=== PATIENT | male | born 1960 | race Caucasian/White ===

== ENCOUNTER 2017-01-22 13:45 | Emergency (ER) | payer OTHER, MEDICAID ==
[2017-01-22 14:01] VITALS: BP 138/71; BMI 31.1
--- NOTE | 2017-01-22 14:25 | DR.GENAD ---
HPI - PCP Primary Care Physician: kathleen - Complaint/Symptoms Chief Complaint:: patient stated his left hip started hurting 3 days ago and he cant take the pain any more. - Nurses notes reviewed Nurses Notes Review: Yes - Source History Provided: Patient - Mode of Arrival Mode of Arrival: Ambulatory - Timing Onset of Chief Complaint: 01/20/17 Came on: Gradually - Duration Duration: Intermittent How lon Duration: Days - Location Location: left hip - Severity Severity: Moderate - Modifying Factors Worsens:: movement - Associated Signs and Symptoms Associated Signs and Symptoms: radiates to leg - Other History Other History: hx back problems PMH - PMH Past Medical History: Yes Past Medical History: CHF, COPD, Diabetes, Dyslipidemia, Hypertension Past Surgical History: Yes Surgical History: Angioplasty/Stents, Ortho Surgery - Family History History of Family Medical Conditions: Yes Family Medical History: Diabetes Mellitus - Social History Does patient currently use any type of tobacco product: Yes Have you used tobacco products in the last 12 months: Yes Type of Tobacco Use: Cigarettes How many years tobacco product used: 40 Does any household member use tobacco: No Alcohol Use: None Do you use any recreational Drugs:: No Lives With: Family Lives Where: Home - infectious screening In the last 2 months have you had wt loss of >10#?: NO Have you had fever, night sweats or hemotysis?: No Have you traveled outside the country in the last 6 months?: No Isolation: Standard ROS - Review of Systems Constitutional: No Symptoms Reported Eyes: No Symptoms Reported ENTM: No Symptoms Reported Respiratoy: No Symptoms Reported Cardiovascular: No Symptoms Reported Gastrointestinal/Abdominal: No Symptoms Reported Genitourinary: No Symptoms Reported Neurological: No Symptoms Reported Musculoskeletal: Hip (left pain) Integumentary: No Symptoms Reported Hematologic/Lymphatic: No Symptoms Reported Endocrine: No Symptoms Reported Psychiatric: No Symptoms Reported All Other Systems: Reviewed and Negative PE - Vital Signs Vitals: Temperature 98.4 F Pulse Rate 71 Respiratory Rate 16 Blood Pressure [Right Arm] 106/50 Blood Pressure [Left Arm] 142/72 Blood Pressure 138/71 O2 Sat by Pulse Oximetry 100 - General Limitations: No Limitations General Appearance: Alert, In No Apparent Distress - Head Head Exam: Normal Inspection - Eyes Eye exam: EOMI. negative: Scleral Icterus, Conjunctival Injection - ENT ENT Exam: Normal Exam - Neck Neck Exam: Normal Inspection, Full ROM, Trachea Midline - Respiratory Respiratory Exam: negative: Accessory Muscle Use, Respiratory Distress - Extremities Extremities Exam: Normal Inspection, Full ROM, Tenderness - Back Back Exam: (L) Straight Leg Raise (pain with lifting left leg) - Neurologic Neurological Exam: Alert, Oriented X3, CN II-XII Intact - Psychiatric Psychiatric Exam: Depressed - Skin Skin Exam: Intact, Normal Color ROR - XRAY XRAY Interpreted by: Radiologist XRAY Findings: left hip: DJD - Diagnosis Discharge Problem: DJD (degenerative joint disease) of pelvis - Discharge Plan Condition: Stable Prescriptions: Prednisone [Prednisone DS Dosepak 10 mg (12 day)] 1 dy[place] PO ONCE #1 [place] - Follow ups/Referrals Follow ups/Referrals: Manjit Vicente [Primary Care Provider] - 3 days - Instructions
[2017-01-22] MEDS ORDERED: TORADOL 60 MG VIAL IM ONE (14:29)
--- NOTE | 2017-01-22 15:09 | RAD ---
HISTORY: Left hip pain, no trauma Study: Pelvic radiograph Comparison: None Findings: Normal alignment. No acute fracture or dislocation. There are postsurgical changes of the lumbosacra l spine noted. There are mild degenerative changes of the bilateral hips. IMPRESSION: 1. Mild degenerative changes of the bilateral hips without acute osseous abnormality. 2. Postsurgical changes at the lumbosacral spine. Reported By:
[2017-01-22] MEDS ORDERED: PREDNISONE TAB 20 MG PO ONE ×2 (15:13→15:25)
[2017-01-22] MEDS ORDERED: TORADOL 60 MG VIAL ONE (15:24)
== END 2017-01-22 15:40 | disposition home or self-care (01) ==
LOC: ER 14:06
DX: M16.12 Unilateral primary osteoarthritis, left hip (principal)
CPT/HCPCS: 72170; 96372; 99282; J1885; J7506

== ENCOUNTER 2017-02-21 12:58 | Inpatient (IN) | payer MEDICAID, OTHER ==
--- NOTE | 2017-02-21 13:12 | DR.GENAD ---
HPI - HPI Comment HPI Comment: RELATIVES FOUND PATIENT AT HIS HOME DISORIENTED AND FEVERISH WITH SOB. NOT ANSWERING THEIR QUESTIONS. TEMP ELEVATED IN ED AND SOB AND CONFUSION NOTED IN PATIENT. - Complaint/Symptoms Chief Complaint Doctors Comments: SOB, FEVER, COUGH, CONGESTION AND DISORIENTED - Nurses notes reviewed Nurses Notes Review: Yes - Source History Provided: Patient, Family Member - Mode of Arrival Mode of Arrival: Wheelchair - Timing Came on: Suddenly - Duration Duration: Constant Duration: Days - Severity Severity: Moderate PMH - PMH Past Medical History: CHF, COPD, Diabetes, Dyslipidemia, Hypertension Past Surgical History: Yes Surgical History: Angioplasty/Stents, Ortho Surgery - Family History Family Medical History: Diabetes Mellitus - Social History Do you use any recreational Drugs:: No ROS - Review of Systems Constitutional: Fever, Weakness, Fatigue, Loss of Appetite. negative: Chills Eyes: No Symptoms Reported. negative: Eye Pain, Discharge ENTM: Nose Congestion, Throat Pain. negative: Ear Pain, Nose Discharge Respiratoy: Productive Cough, Non-Productive Cough, Short of Breath, Wheezing. negative: Hemoptysis Cardiovascular: No Symptoms Reported Gastrointestinal/Abdominal: No Symptoms Reported Genitourinary: No Symptoms Reported Neurological: Headache, Weakness, Dizziness Musculoskeletal: Muscle Pain Integumentary: Dryness Hematologic/Lymphatic: No Symptoms Reported Endocrine: No Symptoms Reported All Other Systems: Reviewed and Negative PE - Vital Signs Vitals: Temperature 100.4 F Pulse Rate 90 Respiratory Rate 22 Blood Pressure [Right Arm] 106/50 Blood Pressure [Left Arm] 142/72 Blood Pressure 115/64 O2 Sat by Pulse Oximetry 98 - General Limitations: Altered Mental Status General Appearance: Alert - Head Head Exam: Normal Inspection - Eyes Eye exam: Normal Appearance - ENT ENT Exam: Normal External Ear Exam External Ear Exam: Normal External Inspection TM/Canal Exam: Bilateral Normal Nose Exam: Normal Nose Exam Mouth Exam: Normal Inspection Throat Exam: Normal Inspection - Neck Neck Exam: Normal Inspection - Chest Chest Inspection: Symmetric Chest Wall Rise - Respiratory Respiratory Exam: Normal Lung Sounds Bilat, Respiratory Distress. negative: Chest Wall Tenderness Respiratory Exam: Bilateral Wheezing, Bilateral Rhonchi, Upper Wheezing, Upper Rhonchi, Lower Wheezing, Lower Rhonchi - Cardiovascular Cardiovascular Exam: Regular Rate, Normal Rhythm, Normal Heart Sounds - Abdominal Exam Abdominal Exam: Normal Bowel Sounds, Soft. negative: Tenderness - Extremities Extremities Exam: Normal Inspection. negative: Edema - Back Back Exam: Normal Inspection - Neurologic Neurological Exam: Alert, Oriented X3 - Psychiatric Psychiatric Exam: Anxious - Skin Skin Exam: Dry MDM - Differential Diagnosis Differential Diagnosis: PNEUMONIA, CHF, COPD EXACERBATION, AMD, CVA Course - Treatment Treatment: SEE ORDERS - Reevaluation 1st: Improved (IMPROVIND.) - Consultation Consultation Comments: DISCUSS PATIENT WITH DR. LOVE. HE WILL ADMIT PATIENT. - Education/Counseling Education/Counseling: Patient, Family, Education Educated On: Treatment, Diagnosis ROR - Labs Reviewed Laboratory Results Reviewed?: Yes Result Diagrams: 02/22/17 04:41 02/22/17 04:41 Laboratory: 02/21/17 13:21 Sputum - Expectorated Sputum - Final WBC 18.2 X10^3/uL (3.6-10.0) H 02/21/17 13:10 RBC 4.27 X10^6/uL (4.7-6.0) L 02/21/17 13:10 Hgb 12.8 g/dL (13.5-18.0) L 02/21/17 13:10 Hct 38.8 % (42.0-54.0) L 02/21/17 13:10 MCV 90.9 fL (80.0-100.0) 02/21/17 13:10 MCH 30.0 pg (27.0-34.0) 02/21/17 13:10 MCHC 33.1 g/dL (33.0-35.0) 02/21/17 13:10 RDW 13.3 % (11.6-16.5) 02/21/17 13:10 Plt Count 246 X10^3/uL (150.0-450.0) 02/21/17 13:10 Plt Count Comment Adequate (ADEQUATE) 02/21/17 13:10 MPV 8.9 fL (7.4-11.0) 02/21/17 13:10 Neut % 83.6 % (42.0-75.0) H 02/21/17 13:10 Lymph % 8.8 % (21.0-51.0) L 02/21/17 13:10 [place] % 6.8 % (0.0-13.0) 02/21/17 13:10 Eos % 0.4 % (0.9-2.9) L 02/21/17 13:10 Baso % 0.4 % (0.2-1.0) 02/21/17 13:10 Neut # 15.2 x10^3/uL (2.2-4.8) H 02/21/17 13:10 Lymph # 1.6 X10^3/uL (1.3-2.9) 02/21/17 13:10 [place] # 1.2 x10^3/uL (0.3-0.8) H 02/21/17 13:10 Eos # 0.1 x10^3/uL (0.0-0.2) 02/21/17 13:10 Baso # 0.1 X10^3/uL (0.0-0.1) 02/21/17 13:10 Absolute Nucleated RBC 0.1 /100WBC 02/21/17 13:10 Plt Clumps, EDTA Rare 02/21/17 13:10 Plt Morphology Comment Normal (NORMAL) 02/21/17 13:10 RBC Morphology Normal (NORMAL) 02/21/17 13:10 Sample Site Lr 02/21/17 13:33 ABG pH 7.480 (7.35-7.45) H 02/21/17 13:33 ABG pCO2 32.0 mmHg (35.0-45.0) L 02/21/17 13:33 ABG pO2 64.0 mmHg (80.0-100.0) L 02/21/17 13:33 ABG HCO3 23.8 mmol/L (22-26) 02/21/17 13:33 ABG O2 Saturation 94.0 % (90-100) 02/21/17 13:33 ABG Base Excess 0.9 mmol/L (-2.0-2.0) 02/21/17 13:33 Bong Test Pos 02/21/17 13:33 A-a Gradient 46.0 mmHg 02/21/17 13:33 FiO2 21.000 02/21/17 13:33 Blood Gas Comments Pt tae well. cdn 02/21/17 13:33 Sodium 139 mmol/L (136-145) 02/21/17 13:10 Corrected Sodium 142 mmol/L (136-145) 02/21/17 13:10 Potassium 3.8 mmol/L (3.5-5.1) 02/21/17 13:10 Chloride 102 mmol/L (98-107) 02/21/17 13:10 Carbon Dioxide 23.6 mmol/L (21-32) 02/21/17 13:10 BUN 9 mg/dL (7-18) 02/21/17 13:10 Creatinine 1.36 mg/dL (0.70-1.30) H 02/21/17 13:10 Est GFR (MDRD) Af Amer > 60 (>60) 02/21/17 13:10 Est GFR (MDRD) Non-Af 57 (>60) L 02/21/17 13:10 Glucose 226 mg/dL (65-99) H 02/21/17 13:10 Lactic Acid 1.8 mmol/L (0.4-2.0) 02/21/17 13:40 Calcium 8.9 mg/dL (8.5-10.1) 02/21/17 13:10 Corrected Calcium 9.6 mg/dL (8.5-10.1) 02/21/17 13:10 Total Bilirubin 0.70 mg/dL (0.2-1.0) 02/21/17 13:10 AST 15 Units/L (15-37) 02/21/17 13:10 ALT 17 Units/L (12-78) 02/21/17 13:10 Alkaline Phosphatase 83 Units/L (46-116) 02/21/17 13:10 Creatine Kinase 53 Units/L (39-308) 02/21/17 13:10 CK-MB (CK-2) < 1.0 ng/mL (0-4.0) 02/21/17 13:10 CK/CKMB % Calc 1.9 % (<4) 02/21/17 13:10 Troponin I < 0.02 ng/mL (0-1.5) 02/21/17 13:10 B-Natriuretic Peptide 94.2 pg/mL (0-79) H 02/21/17 13:10 Total Protein 7.0 g/dL (6.4-8.2) 02/21/17 13:10 Albumin 3.1 g/dL (3.4-5.0) L 02/21/17 13:10 Globulin 3.9 g/dL (2.5-4.5) 02/21/17 13:10 Albumin/Globulin Ratio 0.8 Ratio (1.1-2.1) L 02/21/17 13:10 Specimen Type Clean catch urine 02/21/17 15:31 Urine Color Dark yellow (YELLOW) 02/21/17 15:31 Urine Appearance Slightly hazy (CLEAR) 02/21/17 15:31 Urine pH 6.0 (5.0 - 8.0) 02/21/17 15:31 Ur Specific [place] 1.005 (1.000-1.030) 02/21/17 15:31 Urine Protein 2+ (NEGATIVE) 02/21/17 15:31 Urine Glucose (UA) Negative (NEGATIVE) 02/21/17 15:31 Urine Ketones Negative (NEGATIVE) 02/21/17 15:31 Urine Occult Blood 2+ (NEGATIVE) 02/21/17 15:31 Urine Nitrite Negative (NEGATIVE) 02/21/17 15:31 Urine Bilirubin Negative (NEGATIVE) 02/21/17 15:31 Urine Urobilinogen 1+ (NORMAL) 02/21/17 15:31 Ur Leukocyte Esterase 1+ (NEGATIVE) 02/21/17 15:31 Urine RBC Rare /HPF (NEGATIVE) 02/21/17 15:31 Urine WBC 03 - 06 /HPF (NEGATIVE) 02/21/17 15:31 Ur Squamous Epith Cells Rare /HPF (NEGATIVE) 02/21/17 15:31 Amorphous Sediment Trace /HPF (NEGATIVE) 02/21/17 15:31 Urine Bacteria Negative /HPF (NEGATIVE) 02/21/17 15:31 Urine Mucus Moderate /HPF (NEGATIVE) 02/21/17 15:31 Ur Culture Indicated? No/not indicated 02/21/17 15:31 Acetone, Semi-Quant Negative (NEGATIVE) 02/21/17 13:10 - XRAY XRAY Interpreted by: Radiologist XRAY Findings: REPORT DISCUSS WITH PATIENT. - Diagnosis Discharge Problem: COPD exacerbation Acute bronchitis Qualifiers: Bronchitis organism: other organism Qualified Code(s): J20.8 - Acute bronchitis due to other specified organisms Fever Qualifiers: Fever type: due to other condition Qualified Code(s): R50.81 - Fever presenting with conditions classified elsewhere Altered mental state Qualifiers: Altered mental status type: transient alteration of awareness Qualified Code(s) : R40.4 - Transient alteration of awareness - Discharge Plan Disposition: 01 HOME, SELF-CARE Condition: Stable - Follow ups/Referrals - Instructions
[2017-02-21] MEDS ORDERED: DUONEB 0.5 MG/3 MG NEB ONE (13:23)
[2017-02-21] MEDS ORDERED: DUONEB 0.5 MG/3 MG ONE ×2 (13:23→17:06)
[2017-02-21 13:42] LABS: ABG ALLEN TEST POS; ABG BASE EXCESS 0.9 mmol/L (-2.0-2.0); ABG HCO3 23.8 mmol/L (22-26)
[2017-02-21 13:44] LABS: BLOOD UREA NITROGEN 9 mg/dL (7-18); CALCIUM 8.9 mg/dL (8.5-10.1); CARBON DIOXIDE 23.6 mmol/L (21-32); CHLORIDE 102 mmol/L (98-107); COR NA(FOR HYPERGLY) 142 mmol/L (136-145); CREATININE 1.36 mg/dL (0.70-1.30); GLUCOSE 226 mg/dL (65-99); SODIUM 139 mmol/L (136-145); TROPONIN I < 0.02 ng/mL (0-1.5); eGFR BLACK RACES > 60 (>60); eGFR NON BLACK RACES 57 (>60)
[2017-02-21] MEDS: NS 1000 ML 1,000 ML IV SCH ×2 (13:47→22:20)
[2017-02-21 13:48] LABS: ALANINE AMINOTRANSFERASE 17 Units/L (12-78); ALBUMIN 3.1 g/dL (3.4-5.0); ALKALINE PHOSPHATASE 83 Units/L (46-116); ASPARTATE AMINO TRANSFERASE 15 Units/L (15-37); COR CA(FOR HYPOALB) 9.6 mg/dL (8.5-10.1); CREATINE KINASE 53 Units/L (39-308); CREATINE KINASE MB < 1.0 ng/mL (0-4.0)
[2017-02-21 13:59] LABS: BASOPHILS # (AUTO) 0.1 X10^3/uL (0.0-0.1); BASOPHILS % (AUTO) 0.4 % (0.2-1.0); EOSINOPHILS # (AUTO) 0.1 x10^3/uL (0.0-0.2); EOSINOPHILS % (AUTO) 0.4 % (0.9-2.9); HEMATOCRIT 38.8 % (42.0-54.0); HEMOGLOBIN 12.8 g/dL (13.5-18.0); LYMPHOCYTES # (AUTO) 1.6 X10^3/uL (1.3-2.9); LYMPHOCYTES % (AUTO) 8.8 % (21.0-51.0); MEAN CORPUSCULAR HGB CONC 33.1 g/dL (33.0-35.0); MEAN CORPUSCULAR VOLUME 90.9 fL (80.0-100.0); MEAN PLATELET VOLUME 8.9 fL (7.4-11.0); MONOCYTES # (AUTO) 1.2 x10^3/uL (0.3-0.8); MONOCYTES % (AUTO) 6.8 % (0.0-13.0); NEUTROPHILS # (AUTO) 15.2 x10^3/uL (2.2-4.8); NEUTROPHILS % (AUTO) 83.6 % (42.0-75.0); PLATELET COUNT 246 X10^3/uL (150.0-450.0); RED BLOOD COUNT 4.27 X10^6/uL (4.7-6.0); RED CELL DISTRIBUTION WIDTH 13.3 % (11.6-16.5)
[2017-02-21 14:00] LABS: CKMB % 1.9 % (<4)
[2017-02-21 14:01] LABS: B-TYPE NATRIURETIC PEPTIDE 94.2 pg/mL (0-79)
[2017-02-21 14:05] LABS: WHITE BLOOD COUNT 18.2 X10^3/uL (3.6-10.0)
[2017-02-21 14:06] LABS: PLATELET MORPHOLOGY COMMENT NORMAL (NORMAL)
--- NOTE | 2017-02-21 14:20 | CT ---
HISTORY: Altered mental status Study: CT brain without contrast Comparison: November 25, 2016 Technique: Multiple axial images of the brain were obtained from the skull base to the vertex without administr ation of IV contrast. Dose reduction techniques including Automated Exposure Control (AEC) and adju stment of mA and kV were utilized. Findings: No acute intraparenchymal hemorrhage or mass can be identified. No extra-axial fluid collections ar e seen. No alteration in the attenuation of the brain parenchyma can be identified to suggest acute or subacute ischemic change. The ventricular system is symmetric and nondilated. The extracranial structures are grossly unremarkable. IMPRESSION: 1. No acute intracranial process can be identified. Reported By:
--- NOTE | 2017-02-21 14:22 | RAD ---
HISTORY: Chest pain Study: Single-view chest Comparison: November 25, 2016 Findings: The trachea is midline. The cardiac silhouette is unremarkable. The lungs are clear without focal infiltrate or effusion. The bony thorax is unremarkable. IMPRESSION: 1. No acute cardiopulmonary disease. Reported By:
[2017-02-21 15:40] LABS: BILIRUBIN,URINE NEGATIVE (NEGATIVE); BLOOD/HEMOGLOBIN,URINE 2+ (NEGATIVE); GLUCOSE, URINE NEGATIVE (NEGATIVE); KETONES,URINE NEGATIVE (NEGATIVE); LEUKOCYTE ESTERASE ,URINE 1+ (NEGATIVE); NITRITES,URINE NEGATIVE (NEGATIVE); PROTEIN,URINE 2+ (NEGATIVE); UROBILINOGEN,URINE 1+ (NORMAL)
[2017-02-21 15:49] LABS: APPEARANCE,URINE SLIGHTLY HAZY (CLEAR); COLOR,URINE DARK YELLOW (YELLOW)
[2017-02-21 15:56] LABS: AMORPHOUS SEDIMENT,UR TRACE /HPF (NEGATIVE); BACTERIA,URINE NEGATIVE /HPF (NEGATIVE); RBC,URINE RARE /HPF (NEGATIVE); SQUAMOUS EPITHELIAL CELL,UR RARE /HPF (NEGATIVE)
[2017-02-21 15:57] LABS: MUCUS,URINE MODERATE /HPF (NEGATIVE)
[2017-02-21] MEDS ORDERED: ROCEPHIN VIAL 1 GM 1 GM in NS 50 ML IV + SPIKE MINIBAG* 50 ML IV ONE (16:44)
[2017-02-21] MEDS ORDERED: SOLU-Medrol 125 MG VIAL IVP ONE (16:47)
[2017-02-21] MEDS ORDERED: SOLU-Medrol 125 MG VIAL ONE (16:53)
[2017-02-21] MEDS ORDERED: ROCEPHIN VIAL 1 GM ONE (16:53)
[2017-02-21] MEDS ORDERED: NS 50 ML IV + SPIKE MINIBAG* 50 ML IV ONE (16:54)
[2017-02-21] MEDS ORDERED: TYLENOL ELIXIR 325 MG UDC PO PRN (17:04)
[2017-02-21] MEDS: DUONEB 0.5 MG/3 MG NEB SCH ×2 (17:10→21:40)
[2017-02-21] MEDS ORDERED: TYLENOL ELIXIR 325 MG UDC ONE (17:12)
[2017-02-21 19:15] VITALS: BMI 30.2
[2017-02-21 19:44] LABS: CREATINE KINASE 48 Units/L (39-308); CREATINE KINASE MB < 1.0 ng/mL (0-4.0); TROPONIN I < 0.02 ng/mL (0-1.5)
[2017-02-21 19:45] LABS: CKMB % 2.1 % (<4)
[2017-02-21] MEDS: NICODERM PATCH 21 MG/24 HR TD SCH (20:34)
[2017-02-22] MEDS: DUONEB 0.5 MG/3 MG NEB SCH ×6 (00:48→20:25)
[2017-02-22 02:29] LABS: CKMB % 1.8 % (<4); CREATINE KINASE 56 Units/L (39-308); CREATINE KINASE MB < 1.0 ng/mL (0-4.0); TROPONIN I < 0.02 ng/mL (0-1.5)
[2017-02-22] MEDS: NS 1000 ML 1,000 ML IV SCH ×3 (06:01→21:08)
[2017-02-22 06:24] LABS: HEMOGLOBIN 11.8 g/dL (13.5-18.0); LYMPHOCYTES # (AUTO) 1.1 X10^3/uL (1.3-2.9); MEAN CORPUSCULAR VOLUME 92.4 fL (80.0-100.0); MONOCYTES # (AUTO) 0.4 x10^3/uL (0.3-0.8); MONOCYTES % (AUTO) 1.7 % (0.0-13.0)
[2017-02-22 06:31] LABS: BASOPHILS % (AUTO) 0.2 % (0.2-1.0); HEMATOCRIT 36.7 % (42.0-54.0); LYMPHOCYTES % (AUTO) 4.7 % (21.0-51.0); MEAN CORPUSCULAR HEMOGLOBIN 29.8 pg (27.0-34.0); MEAN CORPUSCULAR HGB CONC 32.3 g/dL (33.0-35.0); MEAN PLATELET VOLUME 8.8 fL (7.4-11.0); NEUTROPHILS # (AUTO) 20.8 x10^3/uL (2.2-4.8); NEUTROPHILS % (AUTO) 93.4 % (42.0-75.0); PLATELET COUNT 267 X10^3/uL (150.0-450.0); RED BLOOD COUNT 3.97 X10^6/uL (4.7-6.0); RED CELL DISTRIBUTION WIDTH 13.7 % (11.6-16.5)
[2017-02-22 06:47] LABS: WHITE BLOOD COUNT 22.2 X10^3/uL (3.6-10.0)
[2017-02-22 06:49] LABS: ALANINE AMINOTRANSFERASE 14 Units/L (12-78); ALBUMIN 2.7 g/dL (3.4-5.0); ALKALINE PHOSPHATASE 71 Units/L (46-116); ASPARTATE AMINO TRANSFERASE 11 Units/L (15-37); BLOOD UREA NITROGEN 14 mg/dL (7-18); CALCIUM 8.5 mg/dL (8.5-10.1); CARBON DIOXIDE 20.9 mmol/L (21-32); CHLORIDE 106 mmol/L (98-107); CHOL/HDL RATIO 3.7 (0.0-5.0); CHOLESTEROL 112 mg/dL (0-200); COR CA(FOR HYPOALB) 9.5 mg/dL (8.5-10.1); COR NA(FOR HYPERGLY) 147 mmol/L (136-145); GLUCOSE 363 mg/dL (65-99); HDL CHOLESTEROL 30 mg/dL (40-60); SODIUM 141 mmol/L (136-145); TOTAL PROTEIN 6.7 g/dL (6.4-8.2); TRIGLYCERIDES 59 mg/dL (0-150); eGFR BLACK RACES > 60 (>60); eGFR NON BLACK RACES 51 (>60)
[2017-02-22 07:28] LABS: BAND NEUTROPHILS % 36 % (0-10); METAMYELOCYTES % 2
[2017-02-22 07:59] LABS: PLATELET MORPHOLOGY COMMENT NORMAL (NORMAL)
[2017-02-22] MEDS: NICODERM PATCH 21 MG/24 HR TD SCH (09:00)
[2017-02-22] MEDS: ROCEPHIN VIAL 1 GM 1 GM in NS 50 ML IV + SPIKE MINIBAG* 50 ML IV SCH (09:01)
[2017-02-22] MEDS: SOLU-Medrol 40 MG VIAL IVP SCH ×2 (09:30→17:57)
[2017-02-22] MEDS ORDERED: NORCO 10/325 TAB PO PRN (16:51)
[2017-02-22] MEDS ORDERED: GLUCOPHAGE ONE (17:54)
[2017-02-22] MEDS: GLUCOPHAGE PO SCH (17:57)
[2017-02-22] MEDS: NEURONTIN CAP 400 MG PO SCH (20:29)
[2017-02-22] MEDS ORDERED: KLONOPIN TAB 1 MG PO SCH (21:00)
[2017-02-22] MEDS ORDERED: CRESTOR TAB 10 MG PO SCH (21:00)
[2017-02-22] MEDS ORDERED: NEURONTIN TAB 600 MG PO SCH (21:00)
[2017-02-22] MEDS ORDERED: COREG TAB 3.125 MG PO SCH (21:00)
[2017-02-22] MEDS: ZOSYN VIAL 4.5 GM 4.5 GM in NS 100 ML IV + SPIKE MINIBAG* 100 ML IV SCH (21:08)
[2017-02-23] MEDS: DUONEB 0.5 MG/3 MG NEB SCH ×6 (00:48→21:18)
[2017-02-23] MEDS: SOLU-Medrol 40 MG VIAL IVP SCH ×3 (02:16→21:23)
[2017-02-23] MEDS: NITROSTAT SL PRN ×3 (05:06→05:18)
[2017-02-23 05:18] LABS: BASOPHILS % (AUTO) 0.2 % (0.2-1.0); HEMATOCRIT 34.1 % (42.0-54.0); HEMOGLOBIN 11.1 g/dL (13.5-18.0); LYMPHOCYTES # (AUTO) 1.2 X10^3/uL (1.3-2.9); LYMPHOCYTES % (AUTO) 4.4 % (21.0-51.0); MEAN CORPUSCULAR HEMOGLOBIN 29.5 pg (27.0-34.0); MEAN CORPUSCULAR HGB CONC 32.6 g/dL (33.0-35.0); MEAN CORPUSCULAR VOLUME 90.7 fL (80.0-100.0); MEAN PLATELET VOLUME 8.6 fL (7.4-11.0); MONOCYTES # (AUTO) 0.7 x10^3/uL (0.3-0.8); MONOCYTES % (AUTO) 2.7 % (0.0-13.0); NEUTROPHILS # (AUTO) 24.6 x10^3/uL (2.2-4.8); NEUTROPHILS % (AUTO) 92.7 % (42.0-75.0); PLATELET COUNT 229 X10^3/uL (150.0-450.0); RED BLOOD COUNT 3.76 X10^6/uL (4.7-6.0); RED CELL DISTRIBUTION WIDTH 13.5 % (11.6-16.5)
[2017-02-23 05:21] LABS: ALANINE AMINOTRANSFERASE 16 Units/L (12-78); ALBUMIN 2.4 g/dL (3.4-5.0); ALKALINE PHOSPHATASE 70 Units/L (46-116); ASPARTATE AMINO TRANSFERASE 17 Units/L (15-37); BLOOD UREA NITROGEN 17 mg/dL (7-18); CALCIUM 8.3 mg/dL (8.5-10.1); CARBON DIOXIDE 20.3 mmol/L (21-32); CHLORIDE 109 mmol/L (98-107); COR CA(FOR HYPOALB) 9.6 mg/dL (8.5-10.1); COR NA(FOR HYPERGLY) 145 mmol/L (136-145); CREATININE 1.24 mg/dL (0.70-1.30); GLUCOSE 325 mg/dL (65-99); SODIUM 140 mmol/L (136-145); TOTAL PROTEIN 6.4 g/dL (6.4-8.2); WHITE BLOOD COUNT 26.5 X10^3/uL (3.6-10.0); eGFR BLACK RACES > 60 (>60); eGFR NON BLACK RACES > 60 (>60)
[2017-02-23] MEDS: ZOSYN VIAL 4.5 GM 4.5 GM in NS 100 ML IV + SPIKE MINIBAG* 100 ML IV SCH ×3 (05:29→21:23)
[2017-02-23] MEDS: NS 1000 ML 1,000 ML IV SCH ×3 (05:30→21:23)
[2017-02-23 05:42] LABS: BAND NEUTROPHILS % 13 % (0-10)
[2017-02-23 05:43] LABS: PLATELET MORPHOLOGY COMMENT NORMAL (NORMAL)
[2017-02-23 05:53] LABS: CKMB % 1.4 % (<4); CREATINE KINASE MB 2.8 ng/mL (0-4.0)
[2017-02-23 05:54] LABS: TROPONIN I 0.01 ng/mL (0-1.5)
[2017-02-23] MEDS ORDERED: GLUCOPHAGE ONE ×2 (06:08→17:30)
[2017-02-23] MEDS: GLUCOPHAGE PO SCH ×2 (06:10→17:36)
[2017-02-23] MEDS ORDERED: LITHIUM CARBONATE (PLAIN) PO SCH (06:30)
[2017-02-23] MEDS ORDERED: HumuLIN R SUBCUT PRN (06:55)
--- NOTE | 2017-02-23 07:23 | RAD ---
HISTORY: Dyspnea Study: Two views chest. Comparison: February 21, 2017. Findings: The trachea is midline. The cardiac silhouette is unremarkable. Diffusely increased interstitial d ensities throughout the lung monte would imply bronchitis with a rounded opacity now seen in the ri ght midlung zone which measures 53 x 55 millimeters with focal right hilar airspace disease also obs erved. This probably reflects a rounded pneumonia but would need followup in order to ensure complet e resolution following treatment. The bony thorax is unremarkable. IMPRESSION: Diffusely increased interstitial densities throughout the lung monte would imply bronch itis with a new rounded lung opacity now seen in the right midlung zone which measures 53 x 55 shefali meters as well as focal right hilar airspace disease also observed. This probably reflects a rounded pneumonia but would need radiographic followup in order to ensure complete resolution following merrick atment. No large effusion observed. Reported By:
[2017-02-23] MEDS ORDERED: NORCO 10/325 TAB PO PRN (08:17)
[2017-02-23] MEDS ORDERED: NITROSTAT SL PRN ×2 (08:17→10:13)
[2017-02-23] MEDS ORDERED: GLUCOPHAGE PO SCH (09:00)
[2017-02-23] MEDS ORDERED: ASPIRIN PO SCH ×2 (09:00)
[2017-02-23] MEDS ORDERED: CYMBALTA PO SCH ×2 (09:00)
[2017-02-23] MEDS ORDERED: NEURONTIN TAB 600 MG PO SCH (09:00)
[2017-02-23] MEDS ORDERED: NICODERM PATCH 21 MG/24 HR TD SCH (09:00)
[2017-02-23] MEDS ORDERED: PriLOSEC PO SCH ×2 (09:00)
[2017-02-23] MEDS ORDERED: MOBIC TAB 15 MG PO SCH ×2 (09:00)
[2017-02-23] MEDS ORDERED: COREG TAB 6.25 MG PO SCH (09:00)
[2017-02-23] MEDS ORDERED: ALBUMIN HUMAN 25%- 100ML 100 ML IV SCH (09:00)
[2017-02-23] MEDS: ROCEPHIN VIAL 1 GM 1 GM in NS 50 ML IV + SPIKE MINIBAG* 50 ML IV SCH (09:34)
[2017-02-23] MEDS: NICODERM PATCH 21 MG/24 HR TD SCH (09:35)
[2017-02-23] MEDS: NEURONTIN CAP 400 MG PO SCH ×2 (09:36→21:21)
[2017-02-23] MEDS ORDERED: SOLU-Medrol 40 MG VIAL IVP ONE ×2 (09:43→10:13)
[2017-02-23] MEDS ORDERED: MUCINEX EXPECTORANT PO SCH (10:00)
[2017-02-23] MEDS ORDERED: PHARMACY CONSULT - VANCOMYCIN XX SCH (10:00)
[2017-02-23] MEDS ORDERED: TYLENOL ELIXIR 325 MG UDC PO PRN (10:13)
[2017-02-23 10:31] LABS: CKMB % 1.6 % (<4); CREATINE KINASE 195 Units/L (39-308); CREATINE KINASE MB 3.1 ng/mL (0-4.0); TROPONIN I < 0.02 ng/mL (0-1.5)
[2017-02-23 10:50] LABS: ABG BASE EXCESS -5.2 mmol/L (-2.0-2.0); ABG HCO3 18.8 mmol/L (22-26)
[2017-02-23 10:51] LABS: ABG ALLEN TEST POS
[2017-02-23] MEDS: LITHIUM CARBONATE (PLAIN) PO SCH ×2 (11:00→17:36)
[2017-02-23] MEDS: HumuLIN R SUBCUT PRN ×3 (12:12→20:39)
--- NOTE | 2017-02-23 12:56 | PCM.PROG ---
Progress Note - Progress Note for Day of Date: 02/23/17 - Subjective Subjective: PATIENT WAS ADMITTED TO HOSPITAL FOR ACUTE BRONCHITIS, COPD EXACERBATION, AND ALTERED MENTAL STATUS. THIS MORNING, PATIENT IS NOTED WITH ACUTE RESPIRATORY DISTRESS. PATIENT IS ALERT AND IS BARELY ABLE TO TALK DUE TO ACUTE DYSPNEA. PATIENT STATES HE FEELS BAD AND IS HAVING TROUBLE BREATHING. PATIENT'S FINAL SPUTUM REPORTS MRSA. PRELIMINARY BLOOD CULTURES ARE NEGATIVE FOR GROWTH. ON AUSCULTATION, LUNGS ARE NOTED WITH COARSE WHEEZING THROUGHOUT. CBC WNL EXCEPT: WBC HAS INCREASED FROM 18.2 TO 26.5, H/H 11.1/34.1. CMP WNL EXCEPT: CHL 109, CARBON DIOXIDE 20.3, GLUCOSE 325, CALCIUM 8.3, ALBUMIN 2.4. CARDIAC ENZYMES WNL. EKG: SINUS RHYTHM, RBBB, RATE 79. CHEST XRAY REPORTS DIFFUSELY INCREASED INTERSTITIAL DENISITIES THROUGHOUT THE LUNG BARRERA; NEW ROUNDED LUNG OPACITY IN THE RIGHT MIDLUNG ZONE WHICH MEASURES 53 X 55 MM WE FOCAL RIGHT HILAR AIRSPACE DISEASE. WE WILL TRANSFER PATIENT TO THE INTENSIVE CARE UNIT, DISCONTINUE ROCEPHIN IV, ADD VANCOMYCIN IV, INCREASE DUONEBS TO 2 FOUR TIMES A DAY, START MUCINEX, INCREASE SOLUMEDROL TO 80MG IV Q8H , CHECK PT/INR AND ABG. WE WILL MONITOR PATIENT ON TELEMETRY AND CONTINUOUS PULSE OXIMETRY. WE WILL FOLLOW UP IN AM WITH LABS, CHEST XRAY, AND ABG. - Past Medical Family Social History Past Med/Fam/Surg Hx: No changes since H&P Allergies: Allergies No Known Drug Allergy Allergy (Verified 01/22/17 13:56) - Review of Systems ROS: No change since H&P - Vital Signs and I&O's Vital Signs: Pulse Rate [Left Radial] 72 Respiratory Rate 19 Blood Pressure [Left Arm] 123/64 O2 Sat by Pulse Oximetry 98 - Physical Exam Oriented: Normal, Time, Person, Place Eyes: Normal. negative: Blurred Vision, Diplopia, Discharge, Pain, Redness, Photophobia Ear: Normal. negative: Swelling, Ecchymosis, Hemotypanum, Abrasion, Laceration Nose: Normal. negative: Injected, Discharge, Blood Throat: Dry. negative: Tonsillar Hypertrophy, Exudate Respiratory: Generalized, Wheezes, OTHER (Respiratory Distress, Shortness of Breath) Cardiovascular: Normal. negative: Murmur, Edema : Normal. negative: Dysuria, Hematuria, Frequency, Discharge, Testicular Pain Auscultation: Bowel Sounds: Normal. negative: Bruit Palpation: Normal. negative: Spleen Enlarged, Liver Enlarged, Mass Pulsatile Tenderness: Normal. negative: Rebound, Guarding, Rigidity Skin: Normal. negative: Diaphoresis, Wound, Bruising, Ecchymosis Musculoskeletal: Instability Psychiatric: Normal Mood Description: Calm, Appropriate Affect: Normal Speech Pattern: Clear, Appropriate - Laboratory and Diagnostics Result Diagrams: 02/23/17 04:36 02/23/17 04:36 Labs: Laboratory WBC 26.5 X10^3/uL (3.6-10.0) H* 02/23/17 04:36 RBC 3.76 X10^6/uL (4.7-6.0) L 02/23/17 04:36 Hgb 11.1 g/dL (13.5-18.0) L 02/23/17 04:36 Hct 34.1 % (42.0-54.0) L 02/23/17 04:36 MCV 90.7 fL (80.0-100.0) 02/23/17 04:36 MCH 29.5 pg (27.0-34.0) 02/23/17 04:36 MCHC 32.6 g/dL (33.0-35.0) L 02/23/17 04:36 RDW 13.5 % (11.6-16.5) 02/23/17 04:36 Plt Count 229 X10^3/uL (150.0-450.0) 02/23/17 04:36 Plt Count Comment Adequate (ADEQUATE) 02/23/17 04:36 MPV 8.6 fL (7.4-11.0) 02/23/17 04:36 Neut % 92.7 % (42.0-75.0) H 02/23/17 04:36 Lymph % 4.4 % (21.0-51.0) L 02/23/17 04:36 [place] % 2.7 % (0.0-13.0) 02/23/17 04:36 Eos % 0.0 % (0.9-2.9) L 02/23/17 04:36 Baso % 0.2 % (0.2-1.0) 02/23/17 04:36 Neut # 24.6 x10^3/uL (2.2-4.8) H 02/23/17 04:36 Lymph # 1.2 X10^3/uL (1.3-2.9) L 02/23/17 04:36 [place] # 0.7 x10^3/uL (0.3-0.8) 02/23/17 04:36 Eos # 0.0 x10^3/uL (0.0-0.2) 02/23/17 04:36 Baso # 0.0 X10^3/uL (0.0-0.1) 02/23/17 04:36 Absolute Nucleated RBC 0.0 /100WBC 02/23/17 04:36 Total Counted 100 02/23/17 04:36 Neutrophils % (Manual) 77 % (39-76) H 02/23/17 04:36 Band Neutrophils % 13 % (0-10) H 02/23/17 04:36 Lymphocytes % (Manual) 7 % (13-43) L 02/23/17 04:36 Monocytes % (Manual) 3 % (4-9) L 02/23/17 04:36 Metamyelocytes % 2 02/22/17 04:41 Plt Clumps, EDTA Rare 02/21/17 13:10 Plt Morphology Comment Normal (NORMAL) 02/23/17 04:36 RBC Morphology Normal (NORMAL) 02/23/17 04:36 INR Target Range - 02/23/17 09:47 INR 1.13 (0.8-1.3) 02/23/17 09:47 Sample Site Lr 02/23/17 10:45 ABG pH 7.390 (7.35-7.45) 02/23/17 10:45 ABG pCO2 31.0 mmHg (35.0-45.0) L 02/23/17 10:45 ABG pO2 87.0 mmHg (80.0-100.0) 02/23/17 10:45 ABG HCO3 18.8 mmol/L (22-26) L 02/23/17 10:45 ABG O2 Saturation 97.0 % (90-100) 02/23/17 10:45 ABG Base Excess -5.2 mmol/L (-2.0-2.0) L 02/23/17 10:45 Bong Test Pos 02/23/17 10:45 A-a Gradient 74.0 mmHg 02/23/17 10:45 FiO2 28.000 02/23/17 10:45 Blood Gas Comments Pt tae well. cdn 02/23/17 10:45 Sodium 140 mmol/L (136-145) 02/23/17 04:36 Corrected Sodium 145 mmol/L (136-145) 02/23/17 04:36 Potassium 4.4 mmol/L (3.5-5.1) 02/23/17 04:36 Chloride 109 mmol/L (98-107) H 02/23/17 04:36 Carbon Dioxide 20.3 mmol/L (21-32) L 02/23/17 04:36 BUN 17 mg/dL (7-18) 02/23/17 04:36 Creatinine 1.24 mg/dL (0.70-1.30) 02/23/17 04:36 Est GFR (MDRD) Af Amer > 60 (>60) 02/23/17 04:36 Est GFR (MDRD) Non-Af > 60 (>60) 02/23/17 04:36 Glucose 325 mg/dL (65-99) H 02/23/17 04:36 Lactic Acid 1.8 mmol/L (0.4-2.0) 02/21/17 13:40 Calcium 8.3 mg/dL (8.5-10.1) L 02/23/17 04:36 Corrected Calcium 9.6 mg/dL (8.5-10.1) 02/23/17 04:36 Total Bilirubin 0.10 mg/dL (0.2-1.0) L 02/23/17 04:36 AST 17 Units/L (15-37) 02/23/17 04:36 ALT 16 Units/L (12-78) 02/23/17 04:36 Alkaline Phosphatase 70 Units/L (46-116) 02/23/17 04:36 Creatine Kinase 195 Units/L (39-308) 02/23/17 09:47 CK-MB (CK-2) 3.1 ng/mL (0-4.0) 02/23/17 09:47 CK/CKMB % Calc 1.6 % (<4) 02/23/17 09:47 Troponin I < 0.02 ng/mL (0-1.5) 02/23/17 09:47 B-Natriuretic Peptide 94.2 pg/mL (0-79) H 02/21/17 13:10 Total Protein 6.4 g/dL (6.4-8.2) 02/23/17 04:36 Albumin 2.4 g/dL (3.4-5.0) L 02/23/17 04:36 Globulin 4.0 g/dL (2.5-4.5) 02/23/17 04:36 Albumin/Globulin Ratio 0.6 Ratio (1.1-2.1) L 02/23/17 04:36 Triglycerides 59 mg/dL (0-150) 02/22/17 04:41 Cholesterol 112 mg/dL (0-200) 02/22/17 04:41 LDL Cholesterol, Calc 70 mg/dL (0-100) 02/22/17 04:41 HDL Cholesterol 30 mg/dL (40-60) L 02/22/17 04:41 Cholesterol/HDL Ratio 3.7 (0.0-5.0) 02/22/17 04:41 Specimen Type Clean catch urine 02/21/17 15:31 Urine Color Dark yellow (YELLOW) 02/21/17 15:31 Urine Appearance Slightly hazy (CLEAR) 02/21/17 15:31 Urine pH 6.0 (5.0 - 8.0) 02/21/17 15:31 Ur Specific [place] 1.005 (1.000-1.030) 02/21/17 15:31 Urine Protein 2+ (NEGATIVE) 02/21/17 15:31 Urine Glucose (UA) Negative (NEGATIVE) 02/21/17 15:31 Urine Ketones Negative (NEGATIVE) 02/21/17 15:31 Urine Occult Blood 2+ (NEGATIVE) 02/21/17 15:31 Urine Nitrite Negative (NEGATIVE) 02/21/17 15:31 Urine Bilirubin Negative (NEGATIVE) 02/21/17 15:31 Urine Urobilinogen 1+ (NORMAL) 02/21/17 15:31 Ur Leukocyte Esterase 1+ (NEGATIVE) 02/21/17 15:31 Urine RBC Rare /HPF (NEGATIVE) 02/21/17 15:31 Urine WBC 03 - 06 /HPF (NEGATIVE) 02/21/17 15:31 Ur Squamous Epith Cells Rare /HPF (NEGATIVE) 02/21/17 15:31 Amorphous Sediment Trace /HPF (NEGATIVE) 02/21/17 15:31 Urine Bacteria Negative /HPF (NEGATIVE) 02/21/17 15:31 Urine Mucus Moderate /HPF (NEGATIVE) 02/21/17 15:31 Ur Culture Indicated? No/not indicated 02/21/17 15:31 Acetone, Semi-Quant Negative (NEGATIVE) 02/21/17 13:10 Influenza A (H1N1) PCR Not detected (NOT DETECT) 02/21/17 17:10 Influenza Type A (PCR) Negative (NEGATIVE) 02/21/17 17:10 Influenza Type B (PCR) Negative (NEGATIVE) 02/21/17 17:10 - Plan (1) Respiratory distress Status: Acute Plan: TRANSFER PATIENT TO ICU, INCREASE DUONEBS TO 2 FOUR TIMES PER DAY, ADD VANCOMYCIN, INCREASE SOLUMEDROL TO 80MG Q8H, DISCONTINUE ROCEPHIN, MONITOR CONTINUOUS PULSE OXIMETRY AND TELEMETRY. (2) MRSA pneumonia Status: Acute Qualifiers: Laterality: right Lung location: middle lobe of lung Qualified Code(s): J15.212 - Pneumonia due to Methicillin resistant Staphylococcus aureus Plan: START VANCOMYCIN IV, MUCINEX, CONTINUE ZOSYN, DUONEBS, SOLUMEDROL, SUPPLEMENTAL OXGYEN, MONITOR. (3) Altered mental state Status: Acute Qualifiers: Altered mental status type: transient alteration of awareness Coma depth: C Coma timing: C Qualified Code(s): R40.4 - Transient alteration of awareness Plan: CONTINUE TO MONITOR. (4) COPD exacerbation Status: Acute Plan: ABOVE. (5) Fever Status: Acute Qualifiers: Fever type: due to other condition Encounter type: E Qualified Code(s): R50.81 - Fever presenting with conditions classified elsewhere Plan: CONTINUE TO MONITOR, TYLENOL NEEDED. (6) Hypertension Status: Chronic Qualifiers: Hypertension type: essential hypertension Qualified Code(s): I10 - Essential (primary) hypertension (7) Hyperlipidemia Status: Chronic Qualifiers: Hyperlipidemia type: mixed hyperlipidemia Qualified Code(s): E78.2 - Mixed hyperlipidemia (8) CHF (congestive heart failure) Status: Chronic Qualifiers: Congestive heart failure type: systolic Congestive heart failure chronicity : acute on chronic Qualified Code(s): I50.23 - Acute on chronic systolic ( congestive) heart failure (9) Diabetes mellitus, type 2 Status: Chronic Qualifiers: Diabetes mellitus complication status: without complication Diabetes mellitus complication detail: D Diabetic retinopathy severity: D Proliferative retinopathy type: P Diabetes mellitus macular edema: D Diabetes mellitus custodial insulin use: without equipment operator intermodal yard use Laterality: L Chronic kidney disease stage: C Qualified Code(s): E11.9 - Type 2 diabetes mellitus without complications (10) GERD (gastroesophageal reflux disease) Status: Chronic Qualifiers: Esophagitis presence: esophagitis presence not specified Qualified Code(s) : K21.9 - Gastro-esophageal reflux disease without esophagitis (11) Anxiety Status: Chronic (12) Bipolar disorder Status: Chronic Qualifiers: Active/Remission status: currently active Current bipolar episode type: depressed Current episode severity: moderate Psychotic features: P Most recent bipolar episode type: M Qualified Code(s): F31.32 - Bipolar disorder, current episode depressed, moderate (13) DJD (degenerative joint disease) of pelvis Status: Chronic (14) Gout Status: Chronic Qualifiers: Gout site: G Gout etiology: G Encounter type: E Laterality: L Chronicity: C Presence of tophus: P (15) History of TN (myocardial infarction) Status: Chronic (16) History of angina Status: Chronic (17) Sleep apnea Status: Chronic Qualifiers: Sleep apnea type: S
[2017-02-23] MEDS ORDERED: DUONEB 0.5 MG/3 MG NEB SCH (13:00)
[2017-02-23] MEDS: NORCO 10/325 TAB PO PRN ×2 (13:27→17:35)
[2017-02-23] MEDS ORDERED: VANCOMYCIN 1 GM PREMIX (ADDVANTAGE) 250 ML IV SCH (14:00)
[2017-02-23] MEDS ORDERED: SOLU-Medrol 40 MG VIAL IVP SCH (14:00)
[2017-02-23] MEDS: VANCOMYCIN 1 GM PREMIX (ADDVANTAGE) 250 ML IV SCH ×2 (14:18→21:23)
[2017-02-23 14:52] LABS: CREATINE KINASE 223 Units/L (39-308); TROPONIN I < 0.02 ng/mL (0-1.5)
[2017-02-23 14:58] LABS: CREATINE KINASE MB 4.4 ng/mL (0-4.0)
[2017-02-23 19:21] LABS: CKMB % 2.2 % (<4); CREATINE KINASE 170 Units/L (39-308); CREATINE KINASE MB 3.7 ng/mL (0-4.0); TROPONIN I < 0.02 ng/mL (0-1.5)
[2017-02-23] MEDS ORDERED: SNACK - Diabetic Appropriate PO SCH ×2 (20:00)
[2017-02-23] MEDS: ROBITUSSIN DM PO PRN (20:37)
[2017-02-23] MEDS ORDERED: [UNRECOGNIZED DRUG - OTHER] PO SCH (21:00)
[2017-02-23] MEDS: COREG TAB 6.25 MG PO SCH (21:20)
[2017-02-23] MEDS: KLONOPIN TAB 1 MG PO SCH (21:20)
[2017-02-23] MEDS: CRESTOR TAB 10 MG PO SCH (21:20)
[2017-02-23] MEDS: SNACK - Diabetic Appropriate PO SCH (21:20)
[2017-02-23] MEDS: MUCINEX EXPECTORANT PO SCH (21:21)
[2017-02-24 04:59] LABS: ABG BASE EXCESS -3.5 mmol/L (-2.0-2.0); ABG HCO3 20.1 mmol/L (22-26)
[2017-02-24 05:01] LABS: ABG ALLEN TEST POS
[2017-02-24] MEDS: NS 1000 ML 1,000 ML IV SCH ×4 (05:43→21:03)
[2017-02-24] MEDS ORDERED: GLUCOPHAGE ONE ×2 (05:49→15:43)
[2017-02-24] MEDS: HumuLIN R SUBCUT PRN ×4 (06:07→21:04)
[2017-02-24] MEDS: ZOSYN VIAL 4.5 GM 4.5 GM in NS 100 ML IV + SPIKE MINIBAG* 100 ML IV SCH ×3 (06:09→21:03)
[2017-02-24] MEDS: GLUCOPHAGE PO SCH ×2 (06:09→16:00)
[2017-02-24] MEDS: VANCOMYCIN 1 GM PREMIX (ADDVANTAGE) 250 ML IV SCH ×3 (06:09→21:03)
[2017-02-24] MEDS: LITHIUM CARBONATE (PLAIN) PO SCH ×3 (06:09→15:43)
[2017-02-24] MEDS: SOLU-Medrol 40 MG VIAL IVP SCH ×3 (06:09→21:03)
[2017-02-24 06:28] LABS: BASOPHILS % (AUTO) 0.2 % (0.2-1.0); HEMOGLOBIN 10.9 g/dL (13.5-18.0); MONOCYTES # (AUTO) 0.6 x10^3/uL (0.3-0.8); NEUTROPHILS # (AUTO) 20.4 x10^3/uL (2.2-4.8)
--- NOTE | 2017-02-24 06:29 | RAD ---
AP Chest Indication: Respiratory distress Comparison 02/23/2017 Findings: Increased reticular opacities and peribronchial thickening are noted within both lungs. Previously m easured rounded consolidation is slightly less conspicuous on today's examination however the wires from cardiac leads to obscure evaluation. Correlation with followup PA and lateral chest radiograph with removal of external wiring as clinically feasible is recommended. No pleural effusion or pneumo thorax. Heart size unchanged. Impression: See above. Reported By:
[2017-02-24 06:40] LABS: BASOPHILS # (AUTO) 0.1 X10^3/uL (0.0-0.1); HEMATOCRIT 33.3 % (42.0-54.0); LYMPHOCYTES # (AUTO) 1.1 X10^3/uL (1.3-2.9); LYMPHOCYTES % (AUTO) 5.1 % (21.0-51.0); MEAN CORPUSCULAR HEMOGLOBIN 29.3 pg (27.0-34.0); MEAN CORPUSCULAR HGB CONC 32.7 g/dL (33.0-35.0); MEAN CORPUSCULAR VOLUME 89.8 fL (80.0-100.0); MEAN PLATELET VOLUME 8.9 fL (7.4-11.0); MONOCYTES % (AUTO) 2.6 % (0.0-13.0); NEUTROPHILS % (AUTO) 92.1 % (42.0-75.0); PLATELET COUNT 270 X10^3/uL (150.0-450.0); RED BLOOD COUNT 3.71 X10^6/uL (4.7-6.0); RED CELL DISTRIBUTION WIDTH 13.5 % (11.6-16.5)
[2017-02-24 06:41] LABS: ALANINE AMINOTRANSFERASE 18 Units/L (12-78); ALBUMIN 2.5 g/dL (3.4-5.0); ALKALINE PHOSPHATASE 68 Units/L (46-116); ASPARTATE AMINO TRANSFERASE 17 Units/L (15-37); BLOOD UREA NITROGEN 16 mg/dL (7-18); CALCIUM 8.5 mg/dL (8.5-10.1); CARBON DIOXIDE 22.1 mmol/L (21-32); CHLORIDE 110 mmol/L (98-107); COR CA(FOR HYPOALB) 9.7 mg/dL (8.5-10.1); COR NA(FOR HYPERGLY) 146 mmol/L (136-145); CREATININE 1.09 mg/dL (0.70-1.30); GLUCOSE 244 mg/dL (65-99); SODIUM 143 mmol/L (136-145); TOTAL PROTEIN 6.4 g/dL (6.4-8.2); eGFR BLACK RACES > 60 (>60); eGFR NON BLACK RACES > 60 (>60)
[2017-02-24 06:50] LABS: WHITE BLOOD COUNT 22.2 X10^3/uL (3.6-10.0)
[2017-02-24 06:53] LABS: BAND NEUTROPHILS % 2 % (0-10); PLATELET MORPHOLOGY COMMENT NORMAL (NORMAL)
[2017-02-24] MEDS: DUONEB 0.5 MG/3 MG NEB SCH ×4 (08:30→20:41)
[2017-02-24] MEDS: ALBUMIN HUMAN 25%- 100ML 100 ML IV SCH (09:45)
[2017-02-24] MEDS: MUCINEX EXPECTORANT PO SCH ×2 (09:46→20:31)
[2017-02-24] MEDS: NEURONTIN CAP 400 MG PO SCH ×2 (09:47→20:32)
[2017-02-24] MEDS: ASPIRIN PO SCH (09:47)
[2017-02-24] MEDS: COREG TAB 6.25 MG PO SCH ×2 (09:48→20:32)
[2017-02-24] MEDS: CYMBALTA PO SCH (09:48)
[2017-02-24] MEDS: PriLOSEC PO SCH (09:49)
[2017-02-24] MEDS: NICODERM PATCH 21 MG/24 HR TD SCH (09:50)
[2017-02-24] MEDS: MOBIC TAB 15 MG PO SCH (09:50)
--- NOTE | 2017-02-24 15:19 | PCM.PROG ---
Progress Note - Progress Note for Day of Date: 02/24/17 - Subjective Subjective: PATIENT RESTS IN BED, DROWSY. HE DENIES SHORTNESS OF BREATH THIS MORNING. PATIENT IS RECEIVING BREATHING TREATMENT UPON ROUNDS. PATIENT CONTINUES ON VANCOMYCIN IV FOR MRSA PNEUMONIA. PRELIMINARY BLOOD CULTURES ARE NEGATIVE FOR GROWTH. ON AUSCULTATION, LUNGS ARE NOTED WITH WHEEZING THROUGHOUT. CBC WNL EXCEPT: WBC HAS DECREASED FROM 26.5 TO 22.2, H/H 10.9/ 33.3. CMP WNL EXCEPT: CHL 110, GLUCOSE 244, ALBUMIN 2.5. ABG ABNORMALS: PCO2 31.0, PO2 141.0, HCO3 20.1, FIO2 28.0. CHEST XRAY REPORTS DIFFUSELY INCREASED RETICULAR OPACITIES AND PERIBRONCHIAL THICKENING WITHING BOTH LUNGS. WE WILL CONTINUE VANCOMYCIN IV, DUONEBS, MUCINEX, SOLUMEDROL. WE WILL CONTINUE TO MONITOR PATIENT ON TELEMETRY AND CONTINUOUS PULSE OXIMETRY. WE WILL FOLLOW UP IN AM WITH LABS, CHEST XRAY, AND ABG. - Past Medical Family Social History Past Med/Fam/Surg Hx: No changes since H&P Allergies: Allergies No Known Drug Allergy Allergy (Verified 01/22/17 13:56) - Review of Systems ROS: No change since H&P - Vital Signs and I&O's Vital Signs: Temperature 97.6 F Pulse Rate [Left Radial] 75 Pulse Rate 63 Respiratory Rate 23 Blood Pressure [Right Arm] 121/64 Blood Pressure [Left Arm] 144/73 O2 Sat by Pulse Oximetry 100 Intake and Output: Intake & Output 02/22/17 02/23/17 02/24/17 02/25/17 11:59 11:59 11:59 11:59 Intake Total 4850 Output Total 1700 Balance 3150 - Physical Exam Oriented: Normal, Time, Person, Place Eyes: Normal. negative: Blurred Vision, Diplopia, Discharge, Pain, Redness, Photophobia Ear: Normal. negative: Swelling, Ecchymosis, Hemotypanum, Abrasion, Laceration Nose: Normal. negative: Injected, Discharge, Blood Throat: Dry. negative: Tonsillar Hypertrophy, Exudate Respiratory: Generalized, Wheezes Cardiovascular: Normal. negative: Murmur, Edema : Normal. negative: Dysuria, Hematuria, Frequency, Discharge, Testicular Pain Auscultation: Bowel Sounds: Normal. negative: Bruit Palpation: Normal. negative: Spleen Enlarged, Liver Enlarged, Mass Pulsatile Tenderness: Normal. negative: Rebound, Guarding, Rigidity Skin: Normal. negative: Diaphoresis, Wound, Bruising, Ecchymosis Musculoskeletal: Instability Psychiatric: Normal Mood Description: Calm, Appropriate Affect: Normal Speech Pattern: Clear, Appropriate - Laboratory and Diagnostics Result Diagrams: 02/24/17 05:27 02/24/17 05:27 Labs: Laboratory WBC 22.2 X10^3/uL (3.6-10.0) H* 02/24/17 05:27 RBC 3.71 X10^6/uL (4.7-6.0) L 02/24/17 05:27 Hgb 10.9 g/dL (13.5-18.0) L 02/24/17 05:27 Hct 33.3 % (42.0-54.0) L 02/24/17 05:27 MCV 89.8 fL (80.0-100.0) 02/24/17 05:27 MCH 29.3 pg (27.0-34.0) 02/24/17 05:27 MCHC 32.7 g/dL (33.0-35.0) L 02/24/17 05:27 RDW 13.5 % (11.6-16.5) 02/24/17 05:27 Plt Count 270 X10^3/uL (150.0-450.0) 02/24/17 05:27 Plt Count Comment Adequate (ADEQUATE) 02/24/17 05:27 MPV 8.9 fL (7.4-11.0) 02/24/17 05:27 Neut % 92.1 % (42.0-75.0) H 02/24/17 05:27 Lymph % 5.1 % (21.0-51.0) L 02/24/17 05:27 [place] % 2.6 % (0.0-13.0) 02/24/17 05:27 Eos % 0.0 % (0.9-2.9) L 02/24/17 05:27 Baso % 0.2 % (0.2-1.0) 02/24/17 05:27 Neut # 20.4 x10^3/uL (2.2-4.8) H 02/24/17 05:27 Lymph # 1.1 X10^3/uL (1.3-2.9) L 02/24/17 05:27 [place] # 0.6 x10^3/uL (0.3-0.8) 02/24/17 05:27 Eos # 0.0 x10^3/uL (0.0-0.2) 02/24/17 05:27 Baso # 0.1 X10^3/uL (0.0-0.1) 02/24/17 05:27 Absolute Nucleated RBC 0.0 /100WBC 02/24/17 05:27 Total Counted 100 02/24/17 05:27 Neutrophils % (Manual) 91 % (39-76) H 02/24/17 05:27 Band Neutrophils % 2 % (0-10) 02/24/17 05:27 Lymphocytes % (Manual) 7 % (13-43) L 02/24/17 05:27 Monocytes % (Manual) 3 % (4-9) L 02/23/17 04:36 Metamyelocytes % 2 02/22/17 04:41 Plt Clumps, EDTA Rare 02/21/17 13:10 Plt Morphology Comment Normal (NORMAL) 02/24/17 05:27 RBC Morphology Normal (NORMAL) 02/24/17 05:27 INR Target Range - 02/23/17 09:47 INR 1.13 (0.8-1.3) 02/23/17 09:47 Sample Site Rrad 02/24/17 04:53 ABG pH 7.420 (7.35-7.45) 02/24/17 04:53 ABG pCO2 31.0 mmHg (35.0-45.0) L 02/24/17 04:53 ABG pO2 141.0 mmHg (80.0-100.0) H 02/24/17 04:53 ABG HCO3 20.1 mmol/L (22-26) L 02/24/17 04:53 ABG O2 Saturation 99.0 % (90-100) 02/24/17 04:53 ABG Base Excess -3.5 mmol/L (-2.0-2.0) L 02/24/17 04:53 Bong Test Pos 02/24/17 04:53 A-a Gradient 20.0 mmHg 02/24/17 04:53 FiO2 28.000 02/24/17 04:53 Blood Gas Comments Mallory abg well-mtf 02/24/17 04:53 Sodium 143 mmol/L (136-145) 02/24/17 05:27 Corrected Sodium 146 mmol/L (136-145) H 02/24/17 05:27 Potassium 4.3 mmol/L (3.5-5.1) 02/24/17 05:27 Chloride 110 mmol/L (98-107) H 02/24/17 05:27 Carbon Dioxide 22.1 mmol/L (21-32) 02/24/17 05:27 BUN 16 mg/dL (7-18) 02/24/17 05:27 Creatinine 1.09 mg/dL (0.70-1.30) 02/24/17 05:27 Est GFR (MDRD) Af Amer > 60 (>60) 02/24/17 05:27 Est GFR (MDRD) Non-Af > 60 (>60) 02/24/17 05:27 Glucose 244 mg/dL (65-99) H 02/24/17 05:27 Lactic Acid 1.8 mmol/L (0.4-2.0) 02/21/17 13:40 Calcium 8.5 mg/dL (8.5-10.1) 02/24/17 05:27 Corrected Calcium 9.7 mg/dL (8.5-10.1) 02/24/17 05:27 Total Bilirubin 0.20 mg/dL (0.2-1.0) 02/24/17 05:27 AST 17 Units/L (15-37) 02/24/17 05:27 ALT 18 Units/L (12-78) 02/24/17 05:27 Alkaline Phosphatase 68 Units/L (46-116) 02/24/17 05:27 Creatine Kinase 170 Units/L (39-308) 02/23/17 18:05 CK-MB (CK-2) 3.7 ng/mL (0-4.0) 02/23/17 18:05 CK/CKMB % Calc 2.2 % (<4) 02/23/17 18:05 Troponin I < 0.02 ng/mL (0-1.5) 02/23/17 18:05 B-Natriuretic Peptide 94.2 pg/mL (0-79) H 02/21/17 13:10 Total Protein 6.4 g/dL (6.4-8.2) 02/24/17 05:27 Albumin 2.5 g/dL (3.4-5.0) L 02/24/17 05:27 Globulin 3.9 g/dL (2.5-4.5) 02/24/17 05:27 Albumin/Globulin Ratio 0.6 Ratio (1.1-2.1) L 02/24/17 05:27 Triglycerides 59 mg/dL (0-150) 02/22/17 04:41 Cholesterol 112 mg/dL (0-200) 02/22/17 04:41 LDL Cholesterol, Calc 70 mg/dL (0-100) 02/22/17 04:41 HDL Cholesterol 30 mg/dL (40-60) L 02/22/17 04:41 Cholesterol/HDL Ratio 3.7 (0.0-5.0) 02/22/17 04:41 Specimen Type Clean catch urine 02/21/17 15:31 Urine Color Dark yellow (YELLOW) 02/21/17 15:31 Urine Appearance Slightly hazy (CLEAR) 02/21/17 15:31 Urine pH 6.0 (5.0 - 8.0) 02/21/17 15:31 Ur Specific [place] 1.005 (1.000-1.030) 02/21/17 15:31 Urine Protein 2+ (NEGATIVE) 02/21/17 15:31 Urine Glucose (UA) Negative (NEGATIVE) 02/21/17 15:31 Urine Ketones Negative (NEGATIVE) 02/21/17 15:31 Urine Occult Blood 2+ (NEGATIVE) 02/21/17 15:31 Urine Nitrite Negative (NEGATIVE) 02/21/17 15:31 Urine Bilirubin Negative (NEGATIVE) 02/21/17 15:31 Urine Urobilinogen 1+ (NORMAL) 02/21/17 15:31 Ur Leukocyte Esterase 1+ (NEGATIVE) 02/21/17 15:31 Urine RBC Rare /HPF (NEGATIVE) 02/21/17 15:31 Urine WBC 03 - 06 /HPF (NEGATIVE) 02/21/17 15:31 Ur Squamous Epith Cells Rare /HPF (NEGATIVE) 02/21/17 15:31 Amorphous Sediment Trace /HPF (NEGATIVE) 02/21/17 15:31 Urine Bacteria Negative /HPF (NEGATIVE) 02/21/17 15:31 Urine Mucus Moderate /HPF (NEGATIVE) 02/21/17 15:31 Ur Culture Indicated? No/not indicated 02/21/17 15:31 Random Vancomycin 13.1 ug/mL 02/24/17 13:20 Acetone, Semi-Quant Negative (NEGATIVE) 02/21/17 13:10 Influenza A (H1N1) PCR Not detected (NOT DETECT) 02/21/17 17:10 Influenza Type A (PCR) Negative (NEGATIVE) 02/21/17 17:10 Influenza Type B (PCR) Negative (NEGATIVE) 02/21/17 17:10 - Plan (1) MRSA pneumonia Status: Acute Qualifiers: Laterality: right Lung location: middle lobe of lung Qualified Code(s): J15.212 - Pneumonia due to Methicillin resistant Staphylococcus aureus Plan: CONTINUE VANCOMYCIN IV, ZOSYN, MUCINEX, DUONEBS, SOLUMEDROL, SUPPLEMENTAL OXGYEN, MONITOR. (2) Respiratory distress Status: Acute Plan: CONTINUE DUONEBS, VANCOMYCIN, ZOSYN, SOLUMEDROL, MONITOR CONTINUOUS PULSE OXIMETRY AND TELEMETRY. (3) Altered mental state Status: Acute Qualifiers: Altered mental status type: transient alteration of awareness Coma depth: C Coma timing: C Qualified Code(s): R40.4 - Transient alteration of awareness Plan: CONTINUE TO MONITOR. (4) COPD exacerbation Status: Acute Plan: ABOVE. (5) Fever Status: Acute Qualifiers: Fever type: due to other condition Encounter type: E Qualified Code(s): R50.81 - Fever presenting with conditions classified elsewhere Plan: CONTINUE TO MONITOR, TYLENOL NEEDED. (6) Hypertension Status: Chronic Qualifiers: Hypertension type: essential hypertension Qualified Code(s): I10 - Essential (primary) hypertension (7) Hyperlipidemia Status: Chronic Qualifiers: Hyperlipidemia type: mixed hyperlipidemia Qualified Code(s): E78.2 - Mixed hyperlipidemia (8) CHF (congestive heart failure) Status: Chronic Qualifiers: Congestive heart failure type: systolic Congestive heart failure chronicity : acute on chronic Qualified Code(s): I50.23 - Acute on chronic systolic ( congestive) heart failure (9) Diabetes mellitus, type 2 Status: Chronic Qualifiers: Diabetes mellitus complication status: without complication Diabetes mellitus complication detail: D Diabetic retinopathy severity: D Proliferative retinopathy type: P Diabetes mellitus macular edema: D Diabetes mellitus intermediate school teacher insulin use: without intermediate school teacher use Laterality: L Chronic kidney disease stage: C Qualified Code(s): E11.9 - Type 2 diabetes mellitus without complications (10) GERD (gastroesophageal reflux disease) Status: Chronic Qualifiers: Esophagitis presence: esophagitis presence not specified Qualified Code(s) : K21.9 - Gastro-esophageal reflux disease without esophagitis (11) Anxiety Status: Chronic (12) Bipolar disorder Status: Chronic Qualifiers: Active/Remission status: currently active Current bipolar episode type: depressed Current episode severity: moderate Psychotic features: P Most recent bipolar episode type: M Qualified Code(s): F31.32 - Bipolar disorder, current episode depressed, moderate (13) DJD (degenerative joint disease) of pelvis Status: Chronic (14) Gout Status: Chronic Qualifiers: Gout site: G Gout etiology: G Encounter type: E Laterality: L Chronicity: C Presence of tophus: P (15) History of VT (myocardial infarction) Status: Chronic (16) History of angina Status: Chronic (17) Sleep apnea Status: Chronic Qualifiers: Sleep apnea type: S
[2017-02-24] MEDS: SNACK - Diabetic Appropriate PO SCH (20:15)
[2017-02-24] MEDS: CRESTOR TAB 10 MG PO SCH (20:31)
[2017-02-24] MEDS: KLONOPIN TAB 1 MG PO SCH (20:31)
[2017-02-25] MEDS ORDERED: GLUCOPHAGE ONE ×3 (04:53→17:19)
[2017-02-25] MEDS: NS 1000 ML 1,000 ML IV SCH ×2 (05:06→14:25)
[2017-02-25] MEDS: ZOSYN VIAL 4.5 GM 4.5 GM in NS 100 ML IV + SPIKE MINIBAG* 100 ML IV SCH ×3 (05:07→21:02)
[2017-02-25] MEDS: VANCOMYCIN 1 GM PREMIX (ADDVANTAGE) 250 ML IV SCH ×3 (05:07→21:02)
[2017-02-25] MEDS: SOLU-Medrol 40 MG VIAL IVP SCH ×3 (05:07→21:03)
[2017-02-25] MEDS: HumuLIN R SUBCUT PRN ×4 (05:22→20:56)
[2017-02-25 05:25] LABS: ALANINE AMINOTRANSFERASE 23 Units/L (12-78); ALBUMIN 2.5 g/dL (3.4-5.0); ALKALINE PHOSPHATASE 62 Units/L (46-116); ASPARTATE AMINO TRANSFERASE 12 Units/L (15-37); BLOOD UREA NITROGEN 16 mg/dL (7-18); CALCIUM 8.4 mg/dL (8.5-10.1); CARBON DIOXIDE 21.7 mmol/L (21-32); CHLORIDE 111 mmol/L (98-107); COR CA(FOR HYPOALB) 9.6 mg/dL (8.5-10.1); COR NA(FOR HYPERGLY) 147 mmol/L (136-145); GLUCOSE 255 mg/dL (65-99); SODIUM 143 mmol/L (136-145); TOTAL PROTEIN 5.9 g/dL (6.4-8.2); eGFR BLACK RACES > 60 (>60); eGFR NON BLACK RACES > 60 (>60)
[2017-02-25 05:26] LABS: BASOPHILS % (AUTO) 0.1 % (0.2-1.0); EOSINOPHILS % (AUTO) 0.1 % (0.9-2.9); HEMATOCRIT 34.9 % (42.0-54.0); HEMOGLOBIN 11.2 g/dL (13.5-18.0); LYMPHOCYTES # (AUTO) 1.3 X10^3/uL (1.3-2.9); LYMPHOCYTES % (AUTO) 6.6 % (21.0-51.0); MEAN CORPUSCULAR HEMOGLOBIN 29.3 pg (27.0-34.0); MEAN CORPUSCULAR HGB CONC 32.2 g/dL (33.0-35.0); MEAN CORPUSCULAR VOLUME 91.2 fL (80.0-100.0); MEAN PLATELET VOLUME 9.1 fL (7.4-11.0); MONOCYTES # (AUTO) 0.7 x10^3/uL (0.3-0.8); MONOCYTES % (AUTO) 3.4 % (0.0-13.0); NEUTROPHILS # (AUTO) 18.3 x10^3/uL (2.2-4.8); NEUTROPHILS % (AUTO) 89.8 % (42.0-75.0); PLATELET COUNT 260 X10^3/uL (150.0-450.0); RED BLOOD COUNT 3.82 X10^6/uL (4.7-6.0); RED CELL DISTRIBUTION WIDTH 13.9 % (11.6-16.5)
[2017-02-25] MEDS: NORCO 10/325 TAB PO PRN ×3 (05:26→20:59)
[2017-02-25 05:30] LABS: WHITE BLOOD COUNT 20.4 X10^3/uL (3.6-10.0)
[2017-02-25 06:13] LABS: BAND NEUTROPHILS % 1 % (0-10); PLATELET MORPHOLOGY COMMENT NORMAL (NORMAL)
[2017-02-25] MEDS: LITHIUM CARBONATE (PLAIN) PO SCH ×3 (06:34→17:21)
[2017-02-25] MEDS: GLUCOPHAGE PO SCH ×2 (06:35→17:22)
--- NOTE | 2017-02-25 06:38 | RAD ---
PA and lateral Chest Indication: Acute bronchitis Comparison: 02/24/2017 Findings: The trachea is midline. The cardiac silhouette is unremarkable. There is increasing peribronchial thickening and interstitial opacities within both lungs consistent with mild worsening of bronchitis . There is questionable developing bronchopneumonia within the right mid and upper lung. No pleural effusion or pneumothorax.. The bony thorax is unremarkable. IMPRESSION: 1. Increasing diffuse peribronchial thickening and interstitial opacities consistent with worsening bronchitis, there is more consolidation within the right mid and upper lung concerning for developi ng bronchopneumonia. Continued radiographic followup is recommended to ensure resolution per Reported By:
[2017-02-25] MEDS: ALBUMIN HUMAN 25%- 100ML 100 ML IV SCH (08:36)
[2017-02-25] MEDS: NEURONTIN CAP 400 MG PO SCH ×2 (08:36→20:58)
[2017-02-25] MEDS: ASPIRIN PO SCH (08:36)
[2017-02-25] MEDS: NICODERM PATCH 21 MG/24 HR TD SCH (08:36)
[2017-02-25] MEDS: MUCINEX EXPECTORANT PO SCH ×2 (08:36→20:58)
[2017-02-25] MEDS: PriLOSEC PO SCH (08:37)
[2017-02-25] MEDS: MOBIC TAB 15 MG PO SCH (08:37)
[2017-02-25] MEDS: COREG TAB 6.25 MG PO SCH ×2 (08:37→20:57)
[2017-02-25] MEDS: ROBITUSSIN DM PO PRN ×2 (08:40→20:57)
[2017-02-25] MEDS: CYMBALTA PO SCH (08:41)
[2017-02-25] MEDS: DUONEB 0.5 MG/3 MG NEB SCH ×4 (09:20→20:33)
[2017-02-25] MEDS: MUCOMYST 20% 200 MG/ML NEB SCH ×3 (12:07→20:33)
[2017-02-25] MEDS ORDERED: MUCOMYST 20% 200 MG/ML NEB SCH (13:00)
[2017-02-25 13:59] LABS: CREATININE 1.23 mg/dL (0.70-1.30); VANCOMYCIN,TROUGH 16.3 ug/mL (15-20)
[2017-02-25] MEDS ORDERED: SOLU-Medrol 40 MG VIAL IVP SCH (16:06)
--- NOTE | 2017-02-25 16:38 | PCM.PROG ---
Progress Note - Progress Note for Day of Date: 02/25/17 - Subjective Subjective: PATIENT IS ALERT AND ORIENTED ON ROUNDS. PATIENT REPORTS HE DOESN' T FEEL WELL TODAY. HE IS NOTED WITH MILD SHORTNESS OF BREATH. SPUTUM IS THICK , GABY BROWN IN COLOR. PATIENT CONTINUES ON VANCOMYCIN AND ZOSYN FOR MRSA PNEUMONIA ALONG WITH SMARTVEST, MUCINEX, AND SOLUMEDROL. ON AUSCULTATION, LUNGS ARE NOTED WITH WHEEZING THROUGHOUT. CBC WNL EXCEPT: WBC 20.4, H/H 11.2/ 34.9. CMP WNL EXCEPT: CHL 111, GLUCOSE 255, CALCIUM 8.4, TOT PROTEIN 5.9, ALBUMIN 2.5. CHEST XRAY REPORTS INCREASING DIFFUSE PERIBRONCHIAL THICKENING AND INTERSTITAL OPACITIES; THERE IS MORE CONSOLIDATION WITHIN THE RIGHT MID AND UPPER LUNG. WE WILL ADD MUCOMYST TO NEB TREATMENTS, CONTINUE VANCOMYCIN IV, ZOSYN, DUONEBS, MUCINEX, SOLUMEDROL. WE WILL CONTINUE TO MONITOR PATIENT ON TELEMETRY AND CONTINUOUS PULSE OXIMETRY. WE WILL FOLLOW UP IN AM WITH LABS, CHEST XRAY, AND ABG. - Past Medical Family Social History Past Med/Fam/Surg Hx: No changes since H&P Allergies: Allergies No Known Drug Allergy Allergy (Verified 01/22/17 13:56) - Review of Systems ROS: No change since H&P - Vital Signs and I&O's Vital Signs: Temperature 97.4 F Pulse Rate [Left Radial] 52 Pulse Rate 57 Respiratory Rate 20 Blood Pressure [Right Arm] 160/85 Blood Pressure [Left Arm] 159/82 O2 Sat by Pulse Oximetry 99 Intake and Output: Intake & Output 02/23/17 02/24/17 02/25/17 02/26/17 11:59 11:59 11:59 11:59 Intake Total 4850 3722 1650 Output Total 1700 1175 300 Balance 3150 2547 1350 - Physical Exam Oriented: Normal, Time, Person, Place Eyes: Normal. negative: Blurred Vision, Diplopia, Discharge, Pain, Redness, Photophobia Ear: Normal. negative: Swelling, Ecchymosis, Hemotypanum, Abrasion, Laceration Nose: Normal. negative: Injected, Discharge, Blood Throat: Dry. negative: Tonsillar Hypertrophy, Exudate Respiratory: Generalized, Wheezes, Rhonchi Cardiovascular: Normal. negative: Murmur, Edema : Normal. negative: Dysuria, Hematuria, Frequency, Discharge, Testicular Pain Auscultation: Bowel Sounds: Normal. negative: Bruit Palpation: Normal. negative: Spleen Enlarged, Liver Enlarged, Mass Pulsatile Tenderness: Normal. negative: Rebound, Guarding, Rigidity Skin: Normal. negative: Diaphoresis, Wound, Bruising, Ecchymosis Musculoskeletal: Instability Psychiatric: Normal Mood Description: Calm, Appropriate Affect: Normal Speech Pattern: Clear, Appropriate - Laboratory and Diagnostics Result Diagrams: 02/25/17 03:15 02/25/17 13:30 Labs: Laboratory WBC 20.4 X10^3/uL (3.6-10.0) H* 02/25/17 03:15 RBC 3.82 X10^6/uL (4.7-6.0) L 02/25/17 03:15 Hgb 11.2 g/dL (13.5-18.0) L 02/25/17 03:15 Hct 34.9 % (42.0-54.0) L 02/25/17 03:15 MCV 91.2 fL (80.0-100.0) 02/25/17 03:15 MCH 29.3 pg (27.0-34.0) 02/25/17 03:15 MCHC 32.2 g/dL (33.0-35.0) L 02/25/17 03:15 RDW 13.9 % (11.6-16.5) 02/25/17 03:15 Plt Count 260 X10^3/uL (150.0-450.0) 02/25/17 03:15 Plt Count Comment Adequate (ADEQUATE) 02/25/17 03:15 MPV 9.1 fL (7.4-11.0) 02/25/17 03:15 Neut % 89.8 % (42.0-75.0) H 02/25/17 03:15 Lymph % 6.6 % (21.0-51.0) L 02/25/17 03:15 [place] % 3.4 % (0.0-13.0) 02/25/17 03:15 Eos % 0.1 % (0.9-2.9) L 02/25/17 03:15 Baso % 0.1 % (0.2-1.0) L 02/25/17 03:15 Neut # 18.3 x10^3/uL (2.2-4.8) H 02/25/17 03:15 Lymph # 1.3 X10^3/uL (1.3-2.9) 02/25/17 03:15 [place] # 0.7 x10^3/uL (0.3-0.8) 02/25/17 03:15 Eos # 0.0 x10^3/uL (0.0-0.2) 02/25/17 03:15 Baso # 0.0 X10^3/uL (0.0-0.1) 02/25/17 03:15 Absolute Nucleated RBC 0.0 /100WBC 02/25/17 03:15 Total Counted 100 02/25/17 03:15 Neutrophils % (Manual) 88 % (39-76) H 02/25/17 03:15 Band Neutrophils % 1 % (0-10) 02/25/17 03:15 Lymphocytes % (Manual) 8 % (13-43) L 02/25/17 03:15 Monocytes % (Manual) 3 % (4-9) L 02/25/17 03:15 Metamyelocytes % 2 02/22/17 04:41 Plt Clumps, EDTA Rare 02/21/17 13:10 Plt Morphology Comment Normal (NORMAL) 02/25/17 03:15 RBC Morphology Normal (NORMAL) 02/25/17 03:15 INR Target Range - 02/23/17 09:47 INR 1.13 (0.8-1.3) 02/23/17 09:47 Sample Site Rrad 02/24/17 04:53 ABG pH 7.420 (7.35-7.45) 02/24/17 04:53 ABG pCO2 31.0 mmHg (35.0-45.0) L 02/24/17 04:53 ABG pO2 141.0 mmHg (80.0-100.0) H 02/24/17 04:53 ABG HCO3 20.1 mmol/L (22-26) L 02/24/17 04:53 ABG O2 Saturation 99.0 % (90-100) 02/24/17 04:53 ABG Base Excess -3.5 mmol/L (-2.0-2.0) L 02/24/17 04:53 Bong Test Pos 02/24/17 04:53 A-a Gradient 20.0 mmHg 02/24/17 04:53 FiO2 28.000 02/24/17 04:53 Blood Gas Comments Mallory abg well-mtf 02/24/17 04:53 Sodium 143 mmol/L (136-145) 02/25/17 03:15 Corrected Sodium 147 mmol/L (136-145) H 02/25/17 03:15 Potassium 4.8 mmol/L (3.5-5.1) 02/25/17 03:15 Chloride 111 mmol/L (98-107) H 02/25/17 03:15 Carbon Dioxide 21.7 mmol/L (21-32) 02/25/17 03:15 BUN 16 mg/dL (7-18) 02/25/17 03:15 Creatinine 1.23 mg/dL (0.70-1.30) 02/25/17 13:30 Est GFR (MDRD) Af Amer > 60 (>60) 02/25/17 03:15 Est GFR (MDRD) Non-Af > 60 (>60) 02/25/17 03:15 Glucose 255 mg/dL (65-99) H 02/25/17 03:15 Lactic Acid 1.8 mmol/L (0.4-2.0) 02/21/17 13:40 Calcium 8.4 mg/dL (8.5-10.1) L 02/25/17 03:15 Corrected Calcium 9.6 mg/dL (8.5-10.1) 02/25/17 03:15 Total Bilirubin 0.20 mg/dL (0.2-1.0) 02/25/17 03:15 AST 12 Units/L (15-37) L 02/25/17 03:15 ALT 23 Units/L (12-78) 02/25/17 03:15 Alkaline Phosphatase 62 Units/L (46-116) 02/25/17 03:15 Creatine Kinase 170 Units/L (39-308) 02/23/17 18:05 CK-MB (CK-2) 3.7 ng/mL (0-4.0) 02/23/17 18:05 CK/CKMB % Calc 2.2 % (<4) 02/23/17 18:05 Troponin I < 0.02 ng/mL (0-1.5) 02/23/17 18:05 B-Natriuretic Peptide 94.2 pg/mL (0-79) H 02/21/17 13:10 Total Protein 5.9 g/dL (6.4-8.2) L 02/25/17 03:15 Albumin 2.5 g/dL (3.4-5.0) L 02/25/17 03:15 Globulin 3.4 g/dL (2.5-4.5) 02/25/17 03:15 Albumin/Globulin Ratio 0.7 Ratio (1.1-2.1) L 02/25/17 03:15 Triglycerides 59 mg/dL (0-150) 02/22/17 04:41 Cholesterol 112 mg/dL (0-200) 02/22/17 04:41 LDL Cholesterol, Calc 70 mg/dL (0-100) 02/22/17 04:41 HDL Cholesterol 30 mg/dL (40-60) L 02/22/17 04:41 Cholesterol/HDL Ratio 3.7 (0.0-5.0) 02/22/17 04:41 Specimen Type Clean catch urine 02/21/17 15:31 Urine Color Dark yellow (YELLOW) 02/21/17 15:31 Urine Appearance Slightly hazy (CLEAR) 02/21/17 15:31 Urine pH 6.0 (5.0 - 8.0) 02/21/17 15:31 Ur Specific [place] 1.005 (1.000-1.030) 02/21/17 15:31 Urine Protein 2+ (NEGATIVE) 02/21/17 15:31 Urine Glucose (UA) Negative (NEGATIVE) 02/21/17 15:31 Urine Ketones Negative (NEGATIVE) 02/21/17 15:31 Urine Occult Blood 2+ (NEGATIVE) 02/21/17 15:31 Urine Nitrite Negative (NEGATIVE) 02/21/17 15:31 Urine Bilirubin Negative (NEGATIVE) 02/21/17 15:31 Urine Urobilinogen 1+ (NORMAL) 02/21/17 15:31 Ur Leukocyte Esterase 1+ (NEGATIVE) 02/21/17 15:31 Urine RBC Rare /HPF (NEGATIVE) 02/21/17 15:31 Urine WBC 03 - 06 /HPF (NEGATIVE) 02/21/17 15:31 Ur Squamous Epith Cells Rare /HPF (NEGATIVE) 02/21/17 15:31 Amorphous Sediment Trace /HPF (NEGATIVE) 02/21/17 15:31 Urine Bacteria Negative /HPF (NEGATIVE) 02/21/17 15:31 Urine Mucus Moderate /HPF (NEGATIVE) 02/21/17 15:31 Ur Culture Indicated? No/not indicated 02/21/17 15:31 Vancomycin Trough 16.3 ug/mL (15-20) 02/25/17 13:30 Random Vancomycin 13.1 ug/mL 02/24/17 13:20 Acetone, Semi-Quant Negative (NEGATIVE) 02/21/17 13:10 Influenza A (H1N1) PCR Not detected (NOT DETECT) 02/21/17 17:10 Influenza Type A (PCR) Negative (NEGATIVE) 02/21/17 17:10 Influenza Type B (PCR) Negative (NEGATIVE) 02/21/17 17:10 - Plan (1) MRSA pneumonia Status: Acute Qualifiers: Laterality: right Lung location: middle lobe of lung Qualified Code(s): J15.212 - Pneumonia due to Methicillin resistant Staphylococcus aureus Plan: ADD MUCOMYST TO NEB TREATMENTS, CONTINUE VANCOMYCIN IV, ZOSYN, MUCINEX, DUONEBS, SOLUMEDROL, SUPPLEMENTAL OXGYEN, MONITOR. (2) Respiratory distress Status: Acute Plan: CONTINUE DUONEBS, VANCOMYCIN, ZOSYN, SOLUMEDROL, MONITOR CONTINUOUS PULSE OXIMETRY AND TELEMETRY. (3) Altered mental state Status: Acute Qualifiers: Altered mental status type: transient alteration of awareness Coma depth: C Coma timing: C Qualified Code(s): R40.4 - Transient alteration of awareness Plan: CONTINUE TO MONITOR. (4) COPD exacerbation Status: Acute Plan: ABOVE. (5) Fever Status: Acute Qualifiers: Fever type: due to other condition Encounter type: E Qualified Code(s): R50.81 - Fever presenting with conditions classified elsewhere Plan: CONTINUE TO MONITOR, TYLENOL NEEDED. (6) Hypertension Status: Chronic Qualifiers: Hypertension type: essential hypertension Qualified Code(s): I10 - Essential (primary) hypertension (7) Hyperlipidemia Status: Chronic Qualifiers: Hyperlipidemia type: mixed hyperlipidemia Qualified Code(s): E78.2 - Mixed hyperlipidemia (8) CHF (congestive heart failure) Status: Chronic Qualifiers: Congestive heart failure type: systolic Congestive heart failure chronicity : acute on chronic Qualified Code(s): I50.23 - Acute on chronic systolic ( congestive) heart failure (9) Diabetes mellitus, type 2 Status: Chronic Qualifiers: Diabetes mellitus complication status: without complication Diabetes mellitus complication detail: D Diabetic retinopathy severity: D Proliferative retinopathy type: P Diabetes mellitus macular edema: D Diabetes mellitus intermediate insulin use: without continuous churn buttermaker use Laterality: L Chronic kidney disease stage: C Qualified Code(s): E11.9 - Type 2 diabetes mellitus without complications (10) GERD (gastroesophageal reflux disease) Status: Chronic Qualifiers: Esophagitis presence: esophagitis presence not specified Qualified Code(s) : K21.9 - Gastro-esophageal reflux disease without esophagitis (11) Anxiety Status: Chronic (12) Bipolar disorder Status: Chronic Qualifiers: Active/Remission status: currently active Current bipolar episode type: depressed Current episode severity: moderate Psychotic features: P Most recent bipolar episode type: M Qualified Code(s): F31.32 - Bipolar disorder, current episode depressed, moderate (13) DJD (degenerative joint disease) of pelvis Status: Chronic (14) Gout Status: Chronic Qualifiers: Gout site: G Gout etiology: G Encounter type: E Laterality: L Chronicity: C Presence of tophus: P (15) History of [place] (myocardial infarction) Status: Chronic (16) History of angina Status: Chronic (17) Sleep apnea Status: Chronic Qualifiers: Sleep apnea type: S
[2017-02-25] MEDS: SNACK - Diabetic Appropriate PO SCH (20:56)
[2017-02-25] MEDS: CRESTOR TAB 10 MG PO SCH (20:57)
[2017-02-25] MEDS: KLONOPIN TAB 1 MG PO SCH (20:58)
[2017-02-26] MEDS: NS 1000 ML 1,000 ML IV SCH ×6 (00:11→23:29)
[2017-02-26 05:18] LABS: ALANINE AMINOTRANSFERASE 26 Units/L (12-78); ALBUMIN 2.5 g/dL (3.4-5.0); ALKALINE PHOSPHATASE 51 Units/L (46-116); ASPARTATE AMINO TRANSFERASE 13 Units/L (15-37); BLOOD UREA NITROGEN 18 mg/dL (7-18); CALCIUM 8.3 mg/dL (8.5-10.1); CARBON DIOXIDE 23.6 mmol/L (21-32); CHLORIDE 110 mmol/L (98-107); COR CA(FOR HYPOALB) 9.5 mg/dL (8.5-10.1); COR NA(FOR HYPERGLY) 144 mmol/L (136-145); CREATININE 1.12 mg/dL (0.70-1.30); GLUCOSE 237 mg/dL (65-99); SODIUM 141 mmol/L (136-145); TOTAL PROTEIN 5.6 g/dL (6.4-8.2); eGFR BLACK RACES > 60 (>60); eGFR NON BLACK RACES > 60 (>60)
[2017-02-26] MEDS: LITHIUM CARBONATE (PLAIN) PO SCH ×3 (05:39→17:14)
[2017-02-26] MEDS: SOLU-Medrol 40 MG VIAL IVP SCH ×3 (05:39→21:02)
[2017-02-26] MEDS: VANCOMYCIN 1 GM PREMIX (ADDVANTAGE) 250 ML IV SCH ×3 (05:40→21:02)
[2017-02-26] MEDS: ZOSYN VIAL 4.5 GM 4.5 GM in NS 100 ML IV + SPIKE MINIBAG* 100 ML IV SCH ×3 (05:40→21:02)
[2017-02-26 05:49] LABS: BASOPHILS % (AUTO) 0.1 % (0.2-1.0); HEMATOCRIT 32.8 % (42.0-54.0); HEMOGLOBIN 10.8 g/dL (13.5-18.0); LYMPHOCYTES # (AUTO) 1.2 X10^3/uL (1.3-2.9); LYMPHOCYTES % (AUTO) 6.5 % (21.0-51.0); MEAN CORPUSCULAR HEMOGLOBIN 29.9 pg (27.0-34.0); MEAN CORPUSCULAR HGB CONC 32.8 g/dL (33.0-35.0); MEAN CORPUSCULAR VOLUME 91.1 fL (80.0-100.0); MEAN PLATELET VOLUME 9.2 fL (7.4-11.0); MONOCYTES # (AUTO) 0.4 x10^3/uL (0.3-0.8); MONOCYTES % (AUTO) 2.2 % (0.0-13.0); NEUTROPHILS # (AUTO) 16.3 x10^3/uL (2.2-4.8); NEUTROPHILS % (AUTO) 91.2 % (42.0-75.0); PLATELET COUNT 254 X10^3/uL (150.0-450.0); RED BLOOD COUNT 3.61 X10^6/uL (4.7-6.0); RED CELL DISTRIBUTION WIDTH 13.4 % (11.6-16.5); WHITE BLOOD COUNT 17.9 X10^3/uL (3.6-10.0)
[2017-02-26 06:02] LABS: BAND NEUTROPHILS % 5 % (0-10)
[2017-02-26 06:03] LABS: PLATELET MORPHOLOGY COMMENT NORMAL (NORMAL)
[2017-02-26] MEDS ORDERED: GLUCOPHAGE ONE ×2 (06:08→17:05)
[2017-02-26] MEDS: HumuLIN R SUBCUT PRN ×4 (06:10→21:02)
[2017-02-26] MEDS: GLUCOPHAGE PO SCH ×2 (06:11→17:14)
--- NOTE | 2017-02-26 07:22 | RAD ---
Chest, one view Indication: Acute bronchitis, respiratory distress, shortness of breath. Comparison: 02/25/2017 Findings: The cardiac silhouette is unchanged. There is re-demonstration of the increased perihilar interstitial and peribronchial thickening. Patchy bilateral airspace opacities, most significant wit hin the right mid upper lung are noted. No large effusion or pneumothorax identified. Impression: Findings suggesting bronchitis with patchy bilateral airspace opacities, worse on the right, suggest reinaldo for superimposed multifocal pneumonia. Continued radiographic followup recommended. Reported By:
[2017-02-26] MEDS: ALBUMIN HUMAN 25%- 100ML 100 ML IV SCH (08:26)
[2017-02-26] MEDS: ASPIRIN PO SCH (08:26)
[2017-02-26] MEDS: ROBITUSSIN DM PO PRN (08:26)
[2017-02-26] MEDS: NORCO 10/325 TAB PO PRN ×2 (08:27→17:14)
[2017-02-26] MEDS: MOBIC TAB 15 MG PO SCH (08:27)
[2017-02-26] MEDS: CYMBALTA PO SCH (08:27)
[2017-02-26] MEDS: PriLOSEC PO SCH (08:27)
[2017-02-26] MEDS: NEURONTIN CAP 400 MG PO SCH ×2 (08:27→21:04)
[2017-02-26] MEDS: MUCINEX EXPECTORANT PO SCH ×2 (08:27→21:04)
[2017-02-26] MEDS: NICODERM PATCH 21 MG/24 HR TD SCH (08:33)
[2017-02-26] MEDS: DUONEB 0.5 MG/3 MG NEB SCH ×4 (08:49→21:22)
[2017-02-26] MEDS: MUCOMYST 20% 200 MG/ML NEB SCH ×4 (08:50→21:23)
[2017-02-26] MEDS: COREG TAB 6.25 MG PO SCH ×2 (10:01→21:04)
--- NOTE | 2017-02-26 13:15 | PCM.PROG ---
Progress Note - Subjective Subjective: PATIENT IS ALERT AND ORIENTED ON ROUNDS. PATIENT REPORTS THAT HE IS FEELING BETTER TODAY. PATIENT CONTINUES ON VANCOMYCIN AND ZOSYN FOR MRSA PNEUMONIA ALONG WITH SMARTVEST, MUCINEX, AND SOLUMEDROL. PATIENT IS ALSO ON NEB TX WITH MUCOMYST. ON AUSCULTATION, LUNGS ARE NOTED WITH WHEEZING AND RHONCHI THROUGHOUT. CBC WNL EXCEPT: WBC 17.9, H/H 10.8/32.8. CMP WNL EXCEPT: CHL 110, GLUCOSE 237, CALCIUM 8.3, AST 13, TOT PROTEIN 5.6, ALBUMIN 2.5. CHEST XRAY REPORTS PATCHY BILATERAL AIRSPACE OPACITIES, WORSE ON THE RIGHT, SUGGESTIVE FOR SUPERIMPOSED MULTIFOCAL PNEUMONIA. WE WILL CONTINUE NEB TX, CONTINUE VANCOMYCIN IV, ZOSYN, DUONEBS, MUCINEX, SOLUMEDROL. WE WILL CONTINUE TO MONITOR PATIENT ON TELEMETRY AND CONTINUOUS PULSE OXIMETRY. WE WILL FOLLOW UP IN AM WITH LABS, CHEST XRAY, AND ABG. - Past Medical Family Social History Past Med/Fam/Surg Hx: No changes since H&P Allergies: Allergies No Known Drug Allergy Allergy (Verified 01/22/17 13:56) - Review of Systems ROS: No change since H&P - Vital Signs and I&O's Vital Signs: Temperature 98.5 F Pulse Rate [Left Radial] 52 Pulse Rate 54 Respiratory Rate 19 Blood Pressure [Right Arm] 173/80 Blood Pressure [Left Arm] 159/82 O2 Sat by Pulse Oximetry 100 Intake and Output: Intake & Output 02/24/17 02/25/17 02/26/17 02/27/17 11:59 11:59 11:59 11:59 Intake Total 4850 3722 4658 Output Total 1700 1175 1550 Balance 3150 2547 3108 - Physical Exam Oriented: Normal, Time, Person, Place Eyes: Normal. negative: Blurred Vision, Diplopia, Discharge, Pain, Redness, Photophobia Ear: Normal. negative: Swelling, Ecchymosis, Hemotypanum, Abrasion, Laceration Nose: Normal. negative: Injected, Discharge, Blood Throat: Dry. negative: Tonsillar Hypertrophy, Exudate Respiratory: Generalized, Wheezes, Rhonchi Cardiovascular: Normal. negative: Murmur, Edema : Normal. negative: Dysuria, Hematuria, Frequency, Discharge, Testicular Pain Auscultation: Bowel Sounds: Normal. negative: Bruit Palpation: Normal. negative: Spleen Enlarged, Liver Enlarged, Mass Pulsatile Tenderness: Normal. negative: Rebound, Guarding, Rigidity Skin: Normal. negative: Diaphoresis, Wound, Bruising, Ecchymosis Musculoskeletal: Instability Psychiatric: Normal Mood Description: Calm, Appropriate Affect: Normal Speech Pattern: Clear, Appropriate - Laboratory and Diagnostics Result Diagrams: 02/26/17 03:00 02/26/17 03:00 Labs: Laboratory WBC 17.9 X10^3/uL (3.6-10.0) H 02/26/17 03:00 RBC 3.61 X10^6/uL (4.7-6.0) L 02/26/17 03:00 Hgb 10.8 g/dL (13.5-18.0) L 02/26/17 03:00 Hct 32.8 % (42.0-54.0) L 02/26/17 03:00 MCV 91.1 fL (80.0-100.0) 02/26/17 03:00 MCH 29.9 pg (27.0-34.0) 02/26/17 03:00 MCHC 32.8 g/dL (33.0-35.0) L 02/26/17 03:00 RDW 13.4 % (11.6-16.5) 02/26/17 03:00 Plt Count 254 X10^3/uL (150.0-450.0) 02/26/17 03:00 Plt Count Comment Adequate (ADEQUATE) 02/26/17 03:00 MPV 9.2 fL (7.4-11.0) 02/26/17 03:00 Neut % 91.2 % (42.0-75.0) H 02/26/17 03:00 Lymph % 6.5 % (21.0-51.0) L 02/26/17 03:00 [place] % 2.2 % (0.0-13.0) 02/26/17 03:00 Eos % 0.0 % (0.9-2.9) L 02/26/17 03:00 Baso % 0.1 % (0.2-1.0) L 02/26/17 03:00 Neut # 16.3 x10^3/uL (2.2-4.8) H 02/26/17 03:00 Lymph # 1.2 X10^3/uL (1.3-2.9) L 02/26/17 03:00 [place] # 0.4 x10^3/uL (0.3-0.8) 02/26/17 03:00 Eos # 0.0 x10^3/uL (0.0-0.2) 02/26/17 03:00 Baso # 0.0 X10^3/uL (0.0-0.1) 02/26/17 03:00 Absolute Nucleated RBC 0.0 /100WBC 02/26/17 03:00 Total Counted 100 02/26/17 03:00 Neutrophils % (Manual) 85 % (39-76) H 02/26/17 03:00 Band Neutrophils % 5 % (0-10) 02/26/17 03:00 Lymphocytes % (Manual) 7 % (13-43) L 02/26/17 03:00 Monocytes % (Manual) 3 % (4-9) L 02/26/17 03:00 Metamyelocytes % 2 02/22/17 04:41 Plt Clumps, EDTA Rare 02/21/17 13:10 Plt Morphology Comment Normal (NORMAL) 02/26/17 03:00 RBC Morphology Normal (NORMAL) 02/26/17 03:00 INR Target Range - 02/23/17 09:47 INR 1.13 (0.8-1.3) 02/23/17 09:47 Sample Site Rrad 02/24/17 04:53 ABG pH 7.420 (7.35-7.45) 02/24/17 04:53 ABG pCO2 31.0 mmHg (35.0-45.0) L 02/24/17 04:53 ABG pO2 141.0 mmHg (80.0-100.0) H 02/24/17 04:53 ABG HCO3 20.1 mmol/L (22-26) L 02/24/17 04:53 ABG O2 Saturation 99.0 % (90-100) 02/24/17 04:53 ABG Base Excess -3.5 mmol/L (-2.0-2.0) L 02/24/17 04:53 Bong Test Pos 02/24/17 04:53 A-a Gradient 20.0 mmHg 02/24/17 04:53 FiO2 28.000 02/24/17 04:53 Blood Gas Comments Mallory abg well-mtf 02/24/17 04:53 Sodium 141 mmol/L (136-145) 02/26/17 03:00 Corrected Sodium 144 mmol/L (136-145) 02/26/17 03:00 Potassium 5.0 mmol/L (3.5-5.1) 02/26/17 03:00 Chloride 110 mmol/L (98-107) H 02/26/17 03:00 Carbon Dioxide 23.6 mmol/L (21-32) 02/26/17 03:00 BUN 18 mg/dL (7-18) 02/26/17 03:00 Creatinine 1.12 mg/dL (0.70-1.30) 02/26/17 03:00 Est GFR (MDRD) Af Amer > 60 (>60) 02/26/17 03:00 Est GFR (MDRD) Non-Af > 60 (>60) 02/26/17 03:00 Glucose 237 mg/dL (65-99) H 02/26/17 03:00 Lactic Acid 1.8 mmol/L (0.4-2.0) 02/21/17 13:40 Calcium 8.3 mg/dL (8.5-10.1) L 02/26/17 03:00 Corrected Calcium 9.5 mg/dL (8.5-10.1) 02/26/17 03:00 Total Bilirubin 0.30 mg/dL (0.2-1.0) 02/26/17 03:00 AST 13 Units/L (15-37) L 02/26/17 03:00 ALT 26 Units/L (12-78) 02/26/17 03:00 Alkaline Phosphatase 51 Units/L (46-116) 02/26/17 03:00 Creatine Kinase 170 Units/L (39-308) 02/23/17 18:05 CK-MB (CK-2) 3.7 ng/mL (0-4.0) 02/23/17 18:05 CK/CKMB % Calc 2.2 % (<4) 02/23/17 18:05 Troponin I < 0.02 ng/mL (0-1.5) 02/23/17 18:05 B-Natriuretic Peptide 94.2 pg/mL (0-79) H 02/21/17 13:10 Total Protein 5.6 g/dL (6.4-8.2) L 02/26/17 03:00 Albumin 2.5 g/dL (3.4-5.0) L 02/26/17 03:00 Globulin 3.1 g/dL (2.5-4.5) 02/26/17 03:00 Albumin/Globulin Ratio 0.8 Ratio (1.1-2.1) L 02/26/17 03:00 Triglycerides 59 mg/dL (0-150) 02/22/17 04:41 Cholesterol 112 mg/dL (0-200) 02/22/17 04:41 LDL Cholesterol, Calc 70 mg/dL (0-100) 02/22/17 04:41 HDL Cholesterol 30 mg/dL (40-60) L 02/22/17 04:41 Cholesterol/HDL Ratio 3.7 (0.0-5.0) 02/22/17 04:41 Specimen Type Clean catch urine 02/21/17 15:31 Urine Color Dark yellow (YELLOW) 02/21/17 15:31 Urine Appearance Slightly hazy (CLEAR) 02/21/17 15:31 Urine pH 6.0 (5.0 - 8.0) 02/21/17 15:31 Ur Specific [place] 1.005 (1.000-1.030) 02/21/17 15:31 Urine Protein 2+ (NEGATIVE) 02/21/17 15:31 Urine Glucose (UA) Negative (NEGATIVE) 02/21/17 15:31 Urine Ketones Negative (NEGATIVE) 02/21/17 15:31 Urine Occult Blood 2+ (NEGATIVE) 02/21/17 15:31 Urine Nitrite Negative (NEGATIVE) 02/21/17 15:31 Urine Bilirubin Negative (NEGATIVE) 02/21/17 15:31 Urine Urobilinogen 1+ (NORMAL) 02/21/17 15:31 Ur Leukocyte Esterase 1+ (NEGATIVE) 02/21/17 15:31 Urine RBC Rare /HPF (NEGATIVE) 02/21/17 15:31 Urine WBC 03 - 06 /HPF (NEGATIVE) 02/21/17 15:31 Ur Squamous Epith Cells Rare /HPF (NEGATIVE) 02/21/17 15:31 Amorphous Sediment Trace /HPF (NEGATIVE) 02/21/17 15:31 Urine Bacteria Negative /HPF (NEGATIVE) 02/21/17 15:31 Urine Mucus Moderate /HPF (NEGATIVE) 02/21/17 15:31 Ur Culture Indicated? No/not indicated 02/21/17 15:31 Vancomycin Trough 16.3 ug/mL (15-20) 02/25/17 13:30 Random Vancomycin 13.1 ug/mL 02/24/17 13:20 Acetone, Semi-Quant Negative (NEGATIVE) 02/21/17 13:10 Influenza A (H1N1) PCR Not detected (NOT DETECT) 02/21/17 17:10 Influenza Type A (PCR) Negative (NEGATIVE) 02/21/17 17:10 Influenza Type B (PCR) Negative (NEGATIVE) 02/21/17 17:10 - Plan (1) MRSA pneumonia Status: Acute Qualifiers: Laterality: right Lung location: middle lobe of lung Qualified Code(s): J15.212 - Pneumonia due to Methicillin resistant Staphylococcus aureus Plan: CONTINUE MUCOMYST TO NEB TREATMENTS, CONTINUE VANCOMYCIN IV, ZOSYN, MUCINEX, DUONEBS, SOLUMEDROL, SUPPLEMENTAL OXGYEN, MONITOR. (2) Respiratory distress Status: Acute Plan: CONTINUE DUONEBS, VANCOMYCIN, ZOSYN, SOLUMEDROL, MONITOR CONTINUOUS PULSE OXIMETRY AND TELEMETRY. (3) Altered mental state Status: Acute Qualifiers: Altered mental status type: transient alteration of awareness Coma depth: C Coma timing: C Qualified Code(s): R40.4 - Transient alteration of awareness Plan: CONTINUE TO MONITOR. (4) COPD exacerbation Status: Acute Plan: ABOVE. (5) Fever Status: Acute Qualifiers: Fever type: due to other condition Encounter type: E Qualified Code(s): R50.81 - Fever presenting with conditions classified elsewhere Plan: CONTINUE TO MONITOR, TYLENOL NEEDED. (6) Hypertension Status: Chronic Qualifiers: Hypertension type: essential hypertension Qualified Code(s): I10 - Essential (primary) hypertension (7) Hyperlipidemia Status: Chronic Qualifiers: Hyperlipidemia type: mixed hyperlipidemia Qualified Code(s): E78.2 - Mixed hyperlipidemia (8) CHF (congestive heart failure) Status: Chronic Qualifiers: Congestive heart failure type: systolic Congestive heart failure chronicity : acute on chronic Qualified Code(s): I50.23 - Acute on chronic systolic ( congestive) heart failure (9) Diabetes mellitus, type 2 Status: Chronic Qualifiers: Diabetes mellitus complication status: without complication Diabetes mellitus complication detail: D Diabetic retinopathy severity: D Proliferative retinopathy type: P Diabetes mellitus macular edema: D Diabetes mellitus fci insulin use: without fci use Laterality: L Chronic kidney disease stage: C Qualified Code(s): E11.9 - Type 2 diabetes mellitus without complications (10) GERD (gastroesophageal reflux disease) Status: Chronic Qualifiers: Esophagitis presence: esophagitis presence not specified Qualified Code(s) : K21.9 - Gastro-esophageal reflux disease without esophagitis (11) Anxiety Status: Chronic (12) Bipolar disorder Status: Chronic Qualifiers: Active/Remission status: currently active Current bipolar episode type: depressed Current episode severity: moderate Psychotic features: P Most recent bipolar episode type: M Qualified Code(s): F31.32 - Bipolar disorder, current episode depressed, moderate (13) DJD (degenerative joint disease) of pelvis Status: Chronic (14) Gout Status: Chronic Qualifiers: Gout site: G Gout etiology: G Encounter type: E Laterality: L Chronicity: C Presence of tophus: P (15) History of [place] (myocardial infarction) Status: Chronic (16) History of angina Status: Chronic (17) Sleep apnea Status: Chronic Qualifiers: Sleep apnea type: S
[2017-02-26 14:15] LABS: CREATININE 1.13 mg/dL (0.70-1.30); VANCOMYCIN,TROUGH 17.9 ug/mL (15-20)
[2017-02-26] MEDS: KLONOPIN TAB 1 MG PO SCH (21:03)
[2017-02-26] MEDS: CRESTOR TAB 10 MG PO SCH (21:04)
[2017-02-26] MEDS: SNACK - Diabetic Appropriate PO SCH (21:04)
[2017-02-27] MEDS: NORCO 10/325 TAB PO PRN ×2 (00:46→21:24)
[2017-02-27] MEDS: ZOSYN VIAL 4.5 GM 4.5 GM in NS 100 ML IV + SPIKE MINIBAG* 100 ML IV SCH ×3 (05:06→21:18)
[2017-02-27] MEDS: VANCOMYCIN 1 GM PREMIX (ADDVANTAGE) 250 ML IV SCH ×3 (05:06→22:02)
[2017-02-27] MEDS: NS 1000 ML 1,000 ML IV SCH ×2 (05:06→16:16)
[2017-02-27] MEDS: SOLU-Medrol 40 MG VIAL IVP SCH ×3 (05:07→21:18)
[2017-02-27] MEDS ORDERED: GLUCOPHAGE ONE ×2 (05:19→16:17)
[2017-02-27] MEDS: LITHIUM CARBONATE (PLAIN) PO SCH ×3 (05:34→16:19)
[2017-02-27] MEDS: HumuLIN R SUBCUT PRN ×4 (05:35→19:59)
[2017-02-27] MEDS: GLUCOPHAGE PO SCH ×2 (06:01→16:19)
--- NOTE | 2017-02-27 06:06 | RAD ---
Chest AP portable Indication: Respiratory distress. Comparison: February 26, 2017. Findings: Cardiomegaly. Mild increased interstitial markings noted. Patchy pulmonary opacities seen. No large effusion or pneumothorax. Impression: Cardiomegaly and increased interstitial markings/peribronchial thickening. Multifocal pn eumonia again suggested. Underlying CHF not excluded. Followup to resolution. Reported By:
[2017-02-27 06:23] LABS: BASOPHILS % (AUTO) 0.1 % (0.2-1.0); HEMATOCRIT 33.7 % (42.0-54.0); HEMOGLOBIN 11.3 g/dL (13.5-18.0); LYMPHOCYTES # (AUTO) 1.3 X10^3/uL (1.3-2.9); LYMPHOCYTES % (AUTO) 6.8 % (21.0-51.0); MEAN CORPUSCULAR HEMOGLOBIN 29.9 pg (27.0-34.0); MEAN CORPUSCULAR HGB CONC 33.5 g/dL (33.0-35.0); MEAN CORPUSCULAR VOLUME 89.2 fL (80.0-100.0); MEAN PLATELET VOLUME 9.2 fL (7.4-11.0); MONOCYTES # (AUTO) 0.7 x10^3/uL (0.3-0.8); MONOCYTES % (AUTO) 3.4 % (0.0-13.0); NEUTROPHILS # (AUTO) 17.5 x10^3/uL (2.2-4.8); NEUTROPHILS % (AUTO) 89.7 % (42.0-75.0); PLATELET COUNT 272 X10^3/uL (150.0-450.0); RED BLOOD COUNT 3.78 X10^6/uL (4.7-6.0); RED CELL DISTRIBUTION WIDTH 13.1 % (11.6-16.5); WHITE BLOOD COUNT 19.5 X10^3/uL (3.6-10.0)
[2017-02-27 07:04] LABS: ALANINE AMINOTRANSFERASE 23 Units/L (12-78); ALBUMIN 2.7 g/dL (3.4-5.0); ALKALINE PHOSPHATASE 49 Units/L (46-116); ASPARTATE AMINO TRANSFERASE 10 Units/L (15-37); BLOOD UREA NITROGEN 21 mg/dL (7-18); CALCIUM 8.4 mg/dL (8.5-10.1); CARBON DIOXIDE 21.8 mmol/L (21-32); CHLORIDE 110 mmol/L (98-107); COR CA(FOR HYPOALB) 9.4 mg/dL (8.5-10.1); COR NA(FOR HYPERGLY) 147 mmol/L (136-145); CREATININE 1.22 mg/dL (0.70-1.30); GLUCOSE 251 mg/dL (65-99); SODIUM 143 mmol/L (136-145); TOTAL PROTEIN 5.6 g/dL (6.4-8.2); eGFR BLACK RACES > 60 (>60); eGFR NON BLACK RACES > 60 (>60)
[2017-02-27 07:11] LABS: BAND NEUTROPHILS % 3 % (0-10); PLATELET MORPHOLOGY COMMENT NORMAL (NORMAL)
[2017-02-27] MEDS: DUONEB 0.5 MG/3 MG NEB SCH ×4 (09:15→21:00)
[2017-02-27] MEDS: MUCOMYST 20% 200 MG/ML NEB SCH ×4 (09:17→21:01)
[2017-02-27] MEDS: ALBUMIN HUMAN 25%- 100ML 100 ML IV SCH (09:51)
[2017-02-27] MEDS: NICODERM PATCH 21 MG/24 HR TD SCH (09:52)
[2017-02-27] MEDS: COREG TAB 6.25 MG PO SCH ×2 (09:53→20:01)
[2017-02-27] MEDS: NEURONTIN CAP 400 MG PO SCH ×2 (09:54→20:02)
[2017-02-27] MEDS: ASPIRIN PO SCH (09:54)
[2017-02-27] MEDS: PriLOSEC PO SCH (09:55)
[2017-02-27] MEDS: MOBIC TAB 15 MG PO SCH (09:55)
[2017-02-27] MEDS: MUCINEX EXPECTORANT PO SCH ×2 (09:55→20:02)
[2017-02-27] MEDS: CYMBALTA PO SCH (10:04)
--- NOTE | 2017-02-27 11:08 | PCM.PROG ---
Progress Note - Progress Note for Day of Date: 02/27/17 - Subjective Subjective: PATIENT IS ALERT AND ORIENTED ON ROUNDS. PATIENT REPORTS COUGHING UP DARK SPUTUM THROUGHOUT THE NIGHT AND THIS MORNING. PATIENT CONTINUES ON VANCOMYCIN AND ZOSYN FOR MRSA PNEUMONIA ALONG WITH SMARTVEST, MUCINEX, AND SOLUMEDROL. PATIENT IS ALSO ON NEB TX WITH MUCOMYST. ON AUSCULTATION, LUNGS ARE NOTED WITH WHEEZING AND RHONCHI THROUGHOUT WITH SOME IMPROVEMENT. CBC WNL EXCEPT: WBC INCREASED FROM 17.9 TO 19.5, H/H 11.3/33.7. CMP WNL EXCEPT: CHL 110 , GLUCOSE 251, CALCIUM 8.4, AST 10, TOT PROTEIN 5.6, ALBUMIN 2.7. CHEST XRAY REPORTS CARDIOMEGALY AND INCREASED INTERSTITIAL MARKINGS/PERIBRONCHIAL THICKENING. MULTIFOCAL PNEUMONIA IS STILL SUGGESTED. WE WILL CONTINUE NEB TX, CONTINUE VANCOMYCIN IV, ZOSYN, DUONEBS, MUCINEX, SOLUMEDROL. WE WILL CONTINUE TO MONITOR PATIENT ON TELEMETRY AND CONTINUOUS PULSE OXIMETRY. WE WILL FOLLOW UP IN AM WITH LABS, CHEST XRAY. - Past Medical Family Social History Past Med/Fam/Surg Hx: No changes since H&P Allergies: Allergies No Known Drug Allergy Allergy (Verified 01/22/17 13:56) - Review of Systems ROS: No change since H&P - Vital Signs and I&O's Vital Signs: Temperature 98.2 F Pulse Rate [Left Radial] 53 Pulse Rate 57 Respiratory Rate 17 Blood Pressure [Right Arm] 156/68 Blood Pressure [Left Arm] 163/78 O2 Sat by Pulse Oximetry 100 Intake and Output: Intake & Output 02/24/17 02/25/17 02/26/17 02/27/17 11:59 11:59 11:59 11:59 Intake Total 4850 3722 4658 4850 Output Total 1700 1175 1550 200 Balance 3150 2547 3108 4650 - Physical Exam Oriented: Normal, Time, Person, Place Eyes: Normal. negative: Blurred Vision, Diplopia, Discharge, Pain, Redness, Photophobia Ear: Normal. negative: Swelling, Ecchymosis, Hemotypanum, Abrasion, Laceration Nose: Normal. negative: Injected, Discharge, Blood Throat: Dry. negative: Tonsillar Hypertrophy, Exudate Respiratory: Generalized, Wheezes, Rhonchi Cardiovascular: Normal. negative: Murmur, Edema : Normal. negative: Dysuria, Hematuria, Frequency, Discharge, Testicular Pain Auscultation: Bowel Sounds: Normal. negative: Bruit Palpation: Normal. negative: Spleen Enlarged, Liver Enlarged, Mass Pulsatile Tenderness: Normal. negative: Rebound, Guarding, Rigidity Skin: Normal. negative: Diaphoresis, Wound, Bruising, Ecchymosis Musculoskeletal: Instability Psychiatric: Normal Mood Description: Calm, Appropriate Affect: Normal Speech Pattern: Clear, Appropriate - Laboratory and Diagnostics Result Diagrams: 02/27/17 03:30 02/27/17 03:30 Labs: Laboratory WBC 19.5 X10^3/uL (3.6-10.0) H 02/27/17 03:30 RBC 3.78 X10^6/uL (4.7-6.0) L 02/27/17 03:30 Hgb 11.3 g/dL (13.5-18.0) L 02/27/17 03:30 Hct 33.7 % (42.0-54.0) L 02/27/17 03:30 MCV 89.2 fL (80.0-100.0) 02/27/17 03:30 MCH 29.9 pg (27.0-34.0) 02/27/17 03:30 MCHC 33.5 g/dL (33.0-35.0) 02/27/17 03:30 RDW 13.1 % (11.6-16.5) 02/27/17 03:30 Plt Count 272 X10^3/uL (150.0-450.0) 02/27/17 03:30 Plt Count Comment Adequate (ADEQUATE) 02/27/17 03:30 MPV 9.2 fL (7.4-11.0) 02/27/17 03:30 Neut % 89.7 % (42.0-75.0) H 02/27/17 03:30 Lymph % 6.8 % (21.0-51.0) L 02/27/17 03:30 [place] % 3.4 % (0.0-13.0) 02/27/17 03:30 Eos % 0.0 % (0.9-2.9) L 02/27/17 03:30 Baso % 0.1 % (0.2-1.0) L 02/27/17 03:30 Neut # 17.5 x10^3/uL (2.2-4.8) H 02/27/17 03:30 Lymph # 1.3 X10^3/uL (1.3-2.9) 02/27/17 03:30 [place] # 0.7 x10^3/uL (0.3-0.8) 02/27/17 03:30 Eos # 0.0 x10^3/uL (0.0-0.2) 02/27/17 03:30 Baso # 0.0 X10^3/uL (0.0-0.1) 02/27/17 03:30 Absolute Nucleated RBC 0.0 /100WBC 02/27/17 03:30 Total Counted 100 02/27/17 03:30 Neutrophils % (Manual) 75 % (39-76) 02/27/17 03:30 Band Neutrophils % 3 % (0-10) 02/27/17 03:30 Lymphocytes % (Manual) 17 % (13-43) 02/27/17 03:30 Monocytes % (Manual) 5 % (4-9) 02/27/17 03:30 Metamyelocytes % 2 02/22/17 04:41 Plt Clumps, EDTA Rare 02/21/17 13:10 Plt Morphology Comment Normal (NORMAL) 02/27/17 03:30 RBC Morphology Normal (NORMAL) 02/27/17 03:30 INR Target Range - 02/23/17 09:47 INR 1.13 (0.8-1.3) 02/23/17 09:47 Sample Site Rrad 02/24/17 04:53 ABG pH 7.420 (7.35-7.45) 02/24/17 04:53 ABG pCO2 31.0 mmHg (35.0-45.0) L 02/24/17 04:53 ABG pO2 141.0 mmHg (80.0-100.0) H 02/24/17 04:53 ABG HCO3 20.1 mmol/L (22-26) L 02/24/17 04:53 ABG O2 Saturation 99.0 % (90-100) 02/24/17 04:53 ABG Base Excess -3.5 mmol/L (-2.0-2.0) L 02/24/17 04:53 Bong Test Pos 02/24/17 04:53 A-a Gradient 20.0 mmHg 02/24/17 04:53 FiO2 28.000 02/24/17 04:53 Blood Gas Comments Mallory abg well-mtf 02/24/17 04:53 Sodium 143 mmol/L (136-145) 02/27/17 03:30 Corrected Sodium 147 mmol/L (136-145) H 02/27/17 03:30 Potassium 4.4 mmol/L (3.5-5.1) 02/27/17 03:30 Chloride 110 mmol/L (98-107) H 02/27/17 03:30 Carbon Dioxide 21.8 mmol/L (21-32) 02/27/17 03:30 BUN 21 mg/dL (7-18) H 02/27/17 03:30 Creatinine 1.22 mg/dL (0.70-1.30) 02/27/17 03:30 Est GFR (MDRD) Af Amer > 60 (>60) 02/27/17 03:30 Est GFR (MDRD) Non-Af > 60 (>60) 02/27/17 03:30 Glucose 251 mg/dL (65-99) H 02/27/17 03:30 Lactic Acid 1.8 mmol/L (0.4-2.0) 02/21/17 13:40 Calcium 8.4 mg/dL (8.5-10.1) L 02/27/17 03:30 Corrected Calcium 9.4 mg/dL (8.5-10.1) 02/27/17 03:30 Total Bilirubin 0.30 mg/dL (0.2-1.0) 02/27/17 03:30 AST 10 Units/L (15-37) L 02/27/17 03:30 ALT 23 Units/L (12-78) 02/27/17 03:30 Alkaline Phosphatase 49 Units/L (46-116) 02/27/17 03:30 Creatine Kinase 170 Units/L (39-308) 02/23/17 18:05 CK-MB (CK-2) 3.7 ng/mL (0-4.0) 02/23/17 18:05 CK/CKMB % Calc 2.2 % (<4) 02/23/17 18:05 Troponin I < 0.02 ng/mL (0-1.5) 02/23/17 18:05 B-Natriuretic Peptide 94.2 pg/mL (0-79) H 02/21/17 13:10 Total Protein 5.6 g/dL (6.4-8.2) L 02/27/17 03:30 Albumin 2.7 g/dL (3.4-5.0) L 02/27/17 03:30 Globulin 2.9 g/dL (2.5-4.5) 02/27/17 03:30 Albumin/Globulin Ratio 0.9 Ratio (1.1-2.1) L 02/27/17 03:30 Triglycerides 59 mg/dL (0-150) 02/22/17 04:41 Cholesterol 112 mg/dL (0-200) 02/22/17 04:41 LDL Cholesterol, Calc 70 mg/dL (0-100) 02/22/17 04:41 HDL Cholesterol 30 mg/dL (40-60) L 02/22/17 04:41 Cholesterol/HDL Ratio 3.7 (0.0-5.0) 02/22/17 04:41 Specimen Type Clean catch urine 02/21/17 15:31 Urine Color Dark yellow (YELLOW) 02/21/17 15:31 Urine Appearance Slightly hazy (CLEAR) 02/21/17 15:31 Urine pH 6.0 (5.0 - 8.0) 02/21/17 15:31 Ur Specific [place] 1.005 (1.000-1.030) 02/21/17 15:31 Urine Protein 2+ (NEGATIVE) 02/21/17 15:31 Urine Glucose (UA) Negative (NEGATIVE) 02/21/17 15:31 Urine Ketones Negative (NEGATIVE) 02/21/17 15:31 Urine Occult Blood 2+ (NEGATIVE) 02/21/17 15:31 Urine Nitrite Negative (NEGATIVE) 02/21/17 15:31 Urine Bilirubin Negative (NEGATIVE) 02/21/17 15:31 Urine Urobilinogen 1+ (NORMAL) 02/21/17 15:31 Ur Leukocyte Esterase 1+ (NEGATIVE) 02/21/17 15:31 Urine RBC Rare /HPF (NEGATIVE) 02/21/17 15:31 Urine WBC 03 - 06 /HPF (NEGATIVE) 02/21/17 15:31 Ur Squamous Epith Cells Rare /HPF (NEGATIVE) 02/21/17 15:31 Amorphous Sediment Trace /HPF (NEGATIVE) 02/21/17 15:31 Urine Bacteria Negative /HPF (NEGATIVE) 02/21/17 15:31 Urine Mucus Moderate /HPF (NEGATIVE) 02/21/17 15:31 Ur Culture Indicated? No/not indicated 02/21/17 15:31 Vancomycin Trough 17.9 ug/mL (15-20) 02/26/17 13:40 Random Vancomycin 13.1 ug/mL 02/24/17 13:20 Acetone, Semi-Quant Negative (NEGATIVE) 02/21/17 13:10 Influenza A (H1N1) PCR Not detected (NOT DETECT) 02/21/17 17:10 Influenza Type A (PCR) Negative (NEGATIVE) 02/21/17 17:10 Influenza Type B (PCR) Negative (NEGATIVE) 02/21/17 17:10 - Plan (1) MRSA pneumonia Status: Acute Qualifiers: Laterality: right Lung location: middle lobe of lung Qualified Code(s): J15.212 - Pneumonia due to Methicillin resistant Staphylococcus aureus Plan: CONTINUE MUCOMYST TO NEB TREATMENTS, CONTINUE VANCOMYCIN IV, ZOSYN, MUCINEX, DUONEBS, SOLUMEDROL, SUPPLEMENTAL OXGYEN, MONITOR. (2) Respiratory distress Status: Acute Plan: CONTINUE DUONEBS, VANCOMYCIN, ZOSYN, SOLUMEDROL, MONITOR CONTINUOUS PULSE OXIMETRY AND TELEMETRY. (3) Altered mental state Status: Acute Qualifiers: Altered mental status type: transient alteration of awareness Coma depth: C Coma timing: C Qualified Code(s): R40.4 - Transient alteration of awareness Plan: CONTINUE TO MONITOR. (4) COPD exacerbation Status: Acute Plan: ABOVE. (5) Fever Status: Acute Qualifiers: Fever type: due to other condition Encounter type: E Qualified Code(s): R50.81 - Fever presenting with conditions classified elsewhere Plan: CONTINUE TO MONITOR, TYLENOL NEEDED. (6) Hypertension Status: Chronic Qualifiers: Hypertension type: essential hypertension Qualified Code(s): I10 - Essential (primary) hypertension (7) Hyperlipidemia Status: Chronic Qualifiers: Hyperlipidemia type: mixed hyperlipidemia Qualified Code(s): E78.2 - Mixed hyperlipidemia (8) CHF (congestive heart failure) Status: Chronic Qualifiers: Congestive heart failure type: systolic Congestive heart failure chronicity : acute on chronic Qualified Code(s): I50.23 - Acute on chronic systolic ( congestive) heart failure (9) Diabetes mellitus, type 2 Status: Chronic Qualifiers: Diabetes mellitus complication status: without complication Diabetes mellitus complication detail: D Diabetic retinopathy severity: D Proliferative retinopathy type: P Diabetes mellitus macular edema: D Diabetes mellitus mcc insulin use: without buttermaker continuous churn use Laterality: L Chronic kidney disease stage: C Qualified Code(s): E11.9 - Type 2 diabetes mellitus without complications (10) GERD (gastroesophageal reflux disease) Status: Chronic Qualifiers: Esophagitis presence: esophagitis presence not specified Qualified Code(s) : K21.9 - Gastro-esophageal reflux disease without esophagitis (11) Anxiety Status: Chronic (12) Bipolar disorder Status: Chronic Qualifiers: Active/Remission status: currently active Current bipolar episode type: depressed Current episode severity: moderate Psychotic features: P Most recent bipolar episode type: M Qualified Code(s): F31.32 - Bipolar disorder, current episode depressed, moderate (13) DJD (degenerative joint disease) of pelvis Status: Chronic (14) Gout Status: Chronic Qualifiers: Gout site: G Gout etiology: G Encounter type: E Laterality: L Chronicity: C Presence of tophus: P (15) History of [place] (myocardial infarction) Status: Chronic (16) History of angina Status: Chronic (17) Sleep apnea Status: Chronic Qualifiers: Sleep apnea type: S
[2017-02-27] MEDS ORDERED: NS 1/2 1000 ML IV 1,000 ML IV ONE (17:11)
[2017-02-27] MEDS: NS 1/2 1000 ML IV 1,000 ML IV SCH (17:17)
[2017-02-27] MEDS: SNACK - Diabetic Appropriate PO SCH (19:56)
[2017-02-27] MEDS: ROBITUSSIN DM PO PRN (20:00)
[2017-02-27] MEDS: TUSSIONEX PENNKINETIC SUSP PO PRN (20:01)
[2017-02-27] MEDS: KLONOPIN TAB 1 MG PO SCH (20:01)
[2017-02-27] MEDS: CRESTOR TAB 10 MG PO SCH (20:02)
[2017-02-27 21:43] LABS: CREATININE 1.21 mg/dL (0.70-1.30); VANCOMYCIN,TROUGH 18.3 ug/mL (15-20)
[2017-02-28] MEDS ORDERED: NS 1/2 1000 ML IV 1,000 ML IV ONE ×2 (01:28→15:59)
[2017-02-28] MEDS: NS 1/2 1000 ML IV 1,000 ML IV SCH ×3 (02:26→16:42)
[2017-02-28] MEDS ORDERED: GLUCOPHAGE ONE ×3 (05:15→17:27)
[2017-02-28] MEDS: VANCOMYCIN 1 GM PREMIX (ADDVANTAGE) 250 ML IV SCH ×3 (05:34→21:10)
[2017-02-28] MEDS: SOLU-Medrol 40 MG VIAL IVP SCH ×3 (05:34→21:09)
[2017-02-28] MEDS: ZOSYN VIAL 4.5 GM 4.5 GM in NS 100 ML IV + SPIKE MINIBAG* 100 ML IV SCH ×3 (05:35→21:10)
[2017-02-28] MEDS: LITHIUM CARBONATE (PLAIN) PO SCH ×3 (05:36→16:41)
[2017-02-28] MEDS: NORCO 10/325 TAB PO PRN ×2 (05:40→19:08)
[2017-02-28] MEDS: HumuLIN R SUBCUT PRN ×4 (05:40→20:37)
[2017-02-28] MEDS: ROBITUSSIN DM PO PRN ×2 (05:41→20:36)
[2017-02-28] MEDS: TUSSIONEX PENNKINETIC SUSP PO PRN ×2 (05:41→20:39)
[2017-02-28] MEDS: GLUCOPHAGE PO SCH ×2 (06:07→16:42)
[2017-02-28 07:28] LABS: ALANINE AMINOTRANSFERASE 23 Units/L (12-78); ALKALINE PHOSPHATASE 47 Units/L (46-116); ASPARTATE AMINO TRANSFERASE 12 Units/L (15-37); BLOOD UREA NITROGEN 20 mg/dL (7-18); CALCIUM 8.4 mg/dL (8.5-10.1); CARBON DIOXIDE 25.2 mmol/L (21-32); CHLORIDE 109 mmol/L (98-107); COR CA(FOR HYPOALB) 9.2 mg/dL (8.5-10.1); COR NA(FOR HYPERGLY) 147 mmol/L (136-145); CREATININE 1.14 mg/dL (0.70-1.30); GLUCOSE 255 mg/dL (65-99); SODIUM 143 mmol/L (136-145); TOTAL PROTEIN 5.9 g/dL (6.4-8.2); eGFR BLACK RACES > 60 (>60); eGFR NON BLACK RACES > 60 (>60)
[2017-02-28 07:37] LABS: BASOPHILS # (AUTO) 0.1 X10^3/uL (0.0-0.1); BASOPHILS % (AUTO) 0.3 % (0.2-1.0); HEMATOCRIT 36.1 % (42.0-54.0); HEMOGLOBIN 11.7 g/dL (13.5-18.0); LYMPHOCYTES # (AUTO) 1.2 X10^3/uL (1.3-2.9); MEAN CORPUSCULAR HEMOGLOBIN 28.9 pg (27.0-34.0); MEAN CORPUSCULAR HGB CONC 32.4 g/dL (33.0-35.0); MEAN CORPUSCULAR VOLUME 89.3 fL (80.0-100.0); MEAN PLATELET VOLUME 9.4 fL (7.4-11.0); MONOCYTES # (AUTO) 0.2 x10^3/uL (0.3-0.8); MONOCYTES % (AUTO) 1.2 % (0.0-13.0); NEUTROPHILS # (AUTO) 19.1 x10^3/uL (2.2-4.8); NEUTROPHILS % (AUTO) 92.5 % (42.0-75.0); PLATELET COUNT 163 X10^3/uL (150.0-450.0); RED BLOOD COUNT 4.05 X10^6/uL (4.7-6.0); RED CELL DISTRIBUTION WIDTH 13.3 % (11.6-16.5)
[2017-02-28 07:43] LABS: WHITE BLOOD COUNT 20.7 X10^3/uL (3.6-10.0)
--- NOTE | 2017-02-28 07:45 | RAD ---
HISTORY: Congestion and cough. Dyspnea. Single view of the chest of the chest. Comparison: February 27, 2017. Findings: The trachea is midline. The cardiac silhouette is unremarkable. There are increased perihilar inte rstitial opacities seen, compatible with bronchiolitis/bronchitis. Right hilar right midlung zone ai rspace opacities remain , implying pneumonia. The upper lungs are otherwise clear without focal infi ltrate or effusion. The bony thorax is unremarkable. IMPRESSION: Radiographic findings compatible with central bronchitis. Right midlung zone airspace disease remains, suggesting pneumonia. Followup of these abnormalities to complete resolution is recommended to exclude malignancy. Reported By:
[2017-02-28 08:34] LABS: PLATELET MORPHOLOGY COMMENT NORMAL (NORMAL)
[2017-02-28] MEDS: ALBUMIN HUMAN 25%- 100ML 100 ML IV SCH (08:43)
[2017-02-28] MEDS: MOBIC TAB 15 MG PO SCH (08:43)
[2017-02-28] MEDS: ASPIRIN PO SCH (08:43)
[2017-02-28] MEDS: MUCINEX EXPECTORANT PO SCH ×2 (08:44→20:39)
[2017-02-28] MEDS: COREG TAB 6.25 MG PO SCH ×2 (08:44→20:38)
[2017-02-28] MEDS: NEURONTIN CAP 400 MG PO SCH ×2 (08:44→20:38)
[2017-02-28] MEDS: NICODERM PATCH 21 MG/24 HR TD SCH (08:44)
[2017-02-28] MEDS: PriLOSEC PO SCH (08:44)
[2017-02-28] MEDS: CYMBALTA PO SCH (08:50)
[2017-02-28] MEDS: DUONEB 0.5 MG/3 MG NEB SCH ×4 (09:04→20:55)
[2017-02-28] MEDS: MUCOMYST 20% 200 MG/ML NEB SCH ×4 (09:04→20:55)
--- NOTE | 2017-02-28 15:25 | PCM.PROG ---
Progress Note - Progress Note for Day of Date: 02/28/17 - Subjective Subjective: PATIENT CONTINUES WITH CHEST CONGESTION AND WHEEZING. SPUTUM CONTINUES TO BE GABY BROWN AND THICK. PATIENT IS AFEBRILE. PATIENT CONTINUES ON VANCOMYCIN AND ZOSYN FOR MRSA PNEUMONIA ALONG WITH SMARTVEST, MUCINEX, SOLUMEDROL, NEB TX WITH MUCOMYST. ON AUSCULTATION, LUNGS ARE NOTED WITH WHEEZING AND RHONCHI THROUGHOUT WITH SOME IMPROVEMENT. CBC WNL EXCEPT: WBC 20.7 , H/H 11.7/36.1. CMP WNL EXCEPT: CHL 109, BUN 20, GLUCOSE 255, CALCIUM 8.4, TOT PROTEIN 5.9, ALBUMIN 3.0. CHEST XRAY REPORTS RIGHT MIDLUNG AIRSPACE DISEASE. WE WILL CONTINUE NEB TX, CONTINUE VANCOMYCIN IV, ZOSYN, DUONEBS, MUCINEX, SOLUMEDROL. WE WILL CONTINUE TO MONITOR PATIENT ON TELEMETRY AND CONTINUOUS PULSE OXIMETRY. WE WILL FOLLOW UP IN AM WITH LABS, CHEST XRAY. - Past Medical Family Social History Past Med/Fam/Surg Hx: No changes since H&P Allergies: Allergies No Known Drug Allergy Allergy (Verified 01/22/17 13:56) - Review of Systems ROS: No change since H&P - Vital Signs and I&O's Vital Signs: Temperature 98.0 F Pulse Rate [Apical] 53 Pulse Rate [Left Radial] 54 Pulse Rate 66 Respiratory Rate 16 Blood Pressure [Right Arm] 166/81 Blood Pressure [Left Arm] 163/78 O2 Sat by Pulse Oximetry 100 Intake and Output: Intake & Output 02/26/17 02/27/17 02/28/17 03/01/17 11:59 11:59 11:59 11:59 Intake Total 4658 4850 5041 Output Total 1550 200 Balance 3108 4650 5041 - Physical Exam Oriented: Normal, Time, Person, Place Eyes: Normal. negative: Blurred Vision, Diplopia, Discharge, Pain, Redness, Photophobia Ear: Normal. negative: Swelling, Ecchymosis, Hemotypanum, Abrasion, Laceration Nose: Normal. negative: Injected, Discharge, Blood Throat: Dry. negative: Tonsillar Hypertrophy, Exudate Respiratory: Generalized, Wheezes, Rhonchi Cardiovascular: Normal. negative: Murmur, Edema : Normal. negative: Dysuria, Hematuria, Frequency, Discharge, Testicular Pain Auscultation: Bowel Sounds: Normal. negative: Bruit Palpation: Normal. negative: Spleen Enlarged, Liver Enlarged, Mass Pulsatile Tenderness: Normal. negative: Rebound, Guarding, Rigidity Skin: Normal. negative: Diaphoresis, Wound, Bruising, Ecchymosis Musculoskeletal: Instability Psychiatric: Normal Mood Description: Calm, Appropriate Affect: Normal Speech Pattern: Clear, Appropriate - Laboratory and Diagnostics Result Diagrams: 02/28/17 05:30 02/28/17 05:30 Labs: Laboratory WBC 20.7 X10^3/uL (3.6-10.0) H* 02/28/17 05:30 RBC 4.05 X10^6/uL (4.7-6.0) L 02/28/17 05:30 Hgb 11.7 g/dL (13.5-18.0) L 02/28/17 05:30 Hct 36.1 % (42.0-54.0) L 02/28/17 05:30 MCV 89.3 fL (80.0-100.0) 02/28/17 05:30 MCH 28.9 pg (27.0-34.0) 02/28/17 05:30 MCHC 32.4 g/dL (33.0-35.0) L 02/28/17 05:30 RDW 13.3 % (11.6-16.5) 02/28/17 05:30 Plt Count 163 X10^3/uL (150.0-450.0) 02/28/17 05:30 Plt Count Comment Adequate (ADEQUATE) 02/28/17 05:30 MPV 9.4 fL (7.4-11.0) 02/28/17 05:30 Neut % 92.5 % (42.0-75.0) H 02/28/17 05:30 Lymph % 6.0 % (21.0-51.0) L 02/28/17 05:30 [place] % 1.2 % (0.0-13.0) 02/28/17 05:30 Eos % 0.0 % (0.9-2.9) L 02/28/17 05:30 Baso % 0.3 % (0.2-1.0) 02/28/17 05:30 Neut # 19.1 x10^3/uL (2.2-4.8) H 02/28/17 05:30 Lymph # 1.2 X10^3/uL (1.3-2.9) L 02/28/17 05:30 [place] # 0.2 x10^3/uL (0.3-0.8) L 02/28/17 05:30 Eos # 0.0 x10^3/uL (0.0-0.2) 02/28/17 05:30 Baso # 0.1 X10^3/uL (0.0-0.1) 02/28/17 05:30 Absolute Nucleated RBC 0.1 /100WBC 02/28/17 05:30 Total Counted 100 02/28/17 05:30 Neutrophils % (Manual) 86 % (39-76) H 02/28/17 05:30 Band Neutrophils % 3 % (0-10) 02/27/17 03:30 Lymphocytes % (Manual) 6 % (13-43) L 02/28/17 05:30 Monocytes % (Manual) 8 % (4-9) 02/28/17 05:30 Metamyelocytes % 2 02/22/17 04:41 Plt Clumps, EDTA Rare 02/21/17 13:10 Plt Morphology Comment Normal (NORMAL) 02/28/17 05:30 RBC Morphology Normal (NORMAL) 02/28/17 05:30 INR Target Range - 02/23/17 09:47 INR 1.13 (0.8-1.3) 02/23/17 09:47 Sample Site Rrad 02/24/17 04:53 ABG pH 7.420 (7.35-7.45) 02/24/17 04:53 ABG pCO2 31.0 mmHg (35.0-45.0) L 02/24/17 04:53 ABG pO2 141.0 mmHg (80.0-100.0) H 02/24/17 04:53 ABG HCO3 20.1 mmol/L (22-26) L 02/24/17 04:53 ABG O2 Saturation 99.0 % (90-100) 02/24/17 04:53 ABG Base Excess -3.5 mmol/L (-2.0-2.0) L 02/24/17 04:53 Bong Test Pos 02/24/17 04:53 A-a Gradient 20.0 mmHg 02/24/17 04:53 FiO2 28.000 02/24/17 04:53 Blood Gas Comments Mallory abg well-mtf 02/24/17 04:53 Sodium 143 mmol/L (136-145) 02/28/17 05:30 Corrected Sodium 147 mmol/L (136-145) H 02/28/17 05:30 Potassium 4.9 mmol/L (3.5-5.1) 02/28/17 05:30 Chloride 109 mmol/L (98-107) H 02/28/17 05:30 Carbon Dioxide 25.2 mmol/L (21-32) 02/28/17 05:30 BUN 20 mg/dL (7-18) H 02/28/17 05:30 Creatinine 1.14 mg/dL (0.70-1.30) 02/28/17 05:30 Est GFR (MDRD) Af Amer > 60 (>60) 02/28/17 05:30 Est GFR (MDRD) Non-Af > 60 (>60) 02/28/17 05:30 Glucose 255 mg/dL (65-99) H 02/28/17 05:30 Lactic Acid 1.8 mmol/L (0.4-2.0) 02/21/17 13:40 Calcium 8.4 mg/dL (8.5-10.1) L 02/28/17 05:30 Corrected Calcium 9.2 mg/dL (8.5-10.1) 02/28/17 05:30 Total Bilirubin 0.40 mg/dL (0.2-1.0) 02/28/17 05:30 AST 12 Units/L (15-37) L 02/28/17 05:30 ALT 23 Units/L (12-78) 02/28/17 05:30 Alkaline Phosphatase 47 Units/L (46-116) 02/28/17 05:30 Creatine Kinase 170 Units/L (39-308) 02/23/17 18:05 CK-MB (CK-2) 3.7 ng/mL (0-4.0) 02/23/17 18:05 CK/CKMB % Calc 2.2 % (<4) 02/23/17 18:05 Troponin I < 0.02 ng/mL (0-1.5) 02/23/17 18:05 B-Natriuretic Peptide 94.2 pg/mL (0-79) H 02/21/17 13:10 Total Protein 5.9 g/dL (6.4-8.2) L 02/28/17 05:30 Albumin 3.0 g/dL (3.4-5.0) L 02/28/17 05:30 Globulin 2.9 g/dL (2.5-4.5) 02/28/17 05:30 Albumin/Globulin Ratio 1.0 Ratio (1.1-2.1) L 02/28/17 05:30 Triglycerides 59 mg/dL (0-150) 02/22/17 04:41 Cholesterol 112 mg/dL (0-200) 02/22/17 04:41 LDL Cholesterol, Calc 70 mg/dL (0-100) 02/22/17 04:41 HDL Cholesterol 30 mg/dL (40-60) L 02/22/17 04:41 Cholesterol/HDL Ratio 3.7 (0.0-5.0) 02/22/17 04:41 Specimen Type Clean catch urine 02/21/17 15:31 Urine Color Dark yellow (YELLOW) 02/21/17 15:31 Urine Appearance Slightly hazy (CLEAR) 02/21/17 15:31 Urine pH 6.0 (5.0 - 8.0) 02/21/17 15:31 Ur Specific [place] 1.005 (1.000-1.030) 02/21/17 15:31 Urine Protein 2+ (NEGATIVE) 02/21/17 15:31 Urine Glucose (UA) Negative (NEGATIVE) 02/21/17 15:31 Urine Ketones Negative (NEGATIVE) 02/21/17 15:31 Urine Occult Blood 2+ (NEGATIVE) 02/21/17 15:31 Urine Nitrite Negative (NEGATIVE) 02/21/17 15:31 Urine Bilirubin Negative (NEGATIVE) 02/21/17 15:31 Urine Urobilinogen 1+ (NORMAL) 02/21/17 15:31 Ur Leukocyte Esterase 1+ (NEGATIVE) 02/21/17 15:31 Urine RBC Rare /HPF (NEGATIVE) 02/21/17 15:31 Urine WBC 03 - 06 /HPF (NEGATIVE) 02/21/17 15:31 Ur Squamous Epith Cells Rare /HPF (NEGATIVE) 02/21/17 15:31 Amorphous Sediment Trace /HPF (NEGATIVE) 02/21/17 15:31 Urine Bacteria Negative /HPF (NEGATIVE) 02/21/17 15:31 Urine Mucus Moderate /HPF (NEGATIVE) 02/21/17 15:31 Ur Culture Indicated? No/not indicated 02/21/17 15:31 Vancomycin Trough 18.3 ug/mL (15-20) 02/27/17 21:20 Random Vancomycin 13.1 ug/mL 02/24/17 13:20 Acetone, Semi-Quant Negative (NEGATIVE) 02/21/17 13:10 Influenza A (H1N1) PCR Not detected (NOT DETECT) 02/21/17 17:10 Influenza Type A (PCR) Negative (NEGATIVE) 02/21/17 17:10 Influenza Type B (PCR) Negative (NEGATIVE) 02/21/17 17:10 - Plan (1) MRSA pneumonia Status: Acute Qualifiers: Laterality: right Lung location: middle lobe of lung Qualified Code(s): J15.212 - Pneumonia due to Methicillin resistant Staphylococcus aureus Plan: CONTINUE MUCOMYST TO NEB TREATMENTS, CONTINUE VANCOMYCIN IV, ZOSYN, MUCINEX, DUONEBS, SOLUMEDROL, SUPPLEMENTAL OXGYEN, MONITOR. (2) Respiratory distress Status: Acute Plan: CONTINUE DUONEBS, VANCOMYCIN, ZOSYN, SOLUMEDROL, MONITOR CONTINUOUS PULSE OXIMETRY AND TELEMETRY. (3) Altered mental state Status: Acute Qualifiers: Altered mental status type: transient alteration of awareness Coma depth: C Coma timing: C Qualified Code(s): R40.4 - Transient alteration of awareness Plan: CONTINUE TO MONITOR. (4) COPD exacerbation Status: Acute Plan: ABOVE. (5) Fever Status: Acute Qualifiers: Fever type: due to other condition Encounter type: E Qualified Code(s): R50.81 - Fever presenting with conditions classified elsewhere Plan: CONTINUE TO MONITOR, TYLENOL NEEDED. (6) Hypertension Status: Chronic Qualifiers: Hypertension type: essential hypertension Qualified Code(s): I10 - Essential (primary) hypertension (7) Hyperlipidemia Status: Chronic Qualifiers: Hyperlipidemia type: mixed hyperlipidemia Qualified Code(s): E78.2 - Mixed hyperlipidemia (8) CHF (congestive heart failure) Status: Chronic Qualifiers: Congestive heart failure type: systolic Congestive heart failure chronicity : acute on chronic Qualified Code(s): I50.23 - Acute on chronic systolic ( congestive) heart failure (9) Diabetes mellitus, type 2 Status: Chronic Qualifiers: Diabetes mellitus complication status: without complication Diabetes mellitus complication detail: D Diabetic retinopathy severity: D Proliferative retinopathy type: P Diabetes mellitus macular edema: D Diabetes mellitus middle or intermediate school principal insulin use: without prison use Laterality: L Chronic kidney disease stage: C Qualified Code(s): E11.9 - Type 2 diabetes mellitus without complications (10) GERD (gastroesophageal reflux disease) Status: Chronic Qualifiers: Esophagitis presence: esophagitis presence not specified Qualified Code(s) : K21.9 - Gastro-esophageal reflux disease without esophagitis (11) Anxiety Status: Chronic (12) Bipolar disorder Status: Chronic Qualifiers: Active/Remission status: currently active Current bipolar episode type: depressed Current episode severity: moderate Psychotic features: P Most recent bipolar episode type: M Qualified Code(s): F31.32 - Bipolar disorder, current episode depressed, moderate (13) DJD (degenerative joint disease) of pelvis Status: Chronic (14) Gout Status: Chronic Qualifiers: Gout site: G Gout etiology: G Encounter type: E Laterality: L Chronicity: C Presence of tophus: P (15) History of [place] (myocardial infarction) Status: Chronic (16) History of angina Status: Chronic (17) Sleep apnea Status: Chronic Qualifiers: Sleep apnea type: S
[2017-02-28] MEDS: CRESTOR TAB 10 MG PO SCH (20:38)
[2017-02-28] MEDS: SNACK - Diabetic Appropriate PO SCH (20:39)
[2017-02-28] MEDS: KLONOPIN TAB 1 MG PO SCH (20:39)
--- NOTE | 2017-02-28 21:07 | RAD ---
Right knee, three views Indication: Fall Findings: No cortical lucency or malalignment is identified. The joint spaces are grossly maintained . No significant joint effusion. Impression: No evidence for acute skeletal injury of the right knee. Reported By:
--- NOTE | 2017-02-28 21:07 | RAD ---
Left knee, three views Indication: Fall. Comparison: None Findings: No cortical lucency or malalignment is identified. There is no significant joint effusion. The joint spaces are grossly maintained. Impression: No evidence for acute skeletal injury of the left knee. Reported By:
[2017-03-01] MEDS ORDERED: NS 1/2 1000 ML IV 1,000 ML IV ONE (00:44)
[2017-03-01] MEDS: NS 1/2 1000 ML IV 1,000 ML IV SCH ×3 (03:52→16:52)
[2017-03-01] MEDS: NORCO 10/325 TAB PO PRN ×3 (04:38→21:26)
[2017-03-01] MEDS: ZOSYN VIAL 4.5 GM 4.5 GM in NS 100 ML IV + SPIKE MINIBAG* 100 ML IV SCH ×3 (05:24→21:24)
[2017-03-01] MEDS: VANCOMYCIN 1 GM PREMIX (ADDVANTAGE) 250 ML IV SCH ×3 (05:24→21:25)
[2017-03-01] MEDS: TUSSIONEX PENNKINETIC SUSP PO PRN ×2 (05:25→21:18)
[2017-03-01] MEDS: ROBITUSSIN DM PO PRN ×3 (05:26→21:18)
[2017-03-01] MEDS: LITHIUM CARBONATE (PLAIN) PO SCH ×3 (05:32→16:46)
[2017-03-01] MEDS ORDERED: GLUCOPHAGE ONE ×2 (06:00→16:44)
[2017-03-01 06:08] LABS: BASOPHILS % (AUTO) 0.1 % (0.2-1.0); HEMATOCRIT 34.2 % (42.0-54.0); HEMOGLOBIN 11.5 g/dL (13.5-18.0); LYMPHOCYTES % (AUTO) 5.2 % (21.0-51.0); MEAN CORPUSCULAR HEMOGLOBIN 29.3 pg (27.0-34.0); MEAN CORPUSCULAR HGB CONC 33.4 g/dL (33.0-35.0); MEAN CORPUSCULAR VOLUME 87.5 fL (80.0-100.0); MEAN PLATELET VOLUME 9.3 fL (7.4-11.0); MONOCYTES # (AUTO) 0.7 x10^3/uL (0.3-0.8); MONOCYTES % (AUTO) 3.9 % (0.0-13.0); NEUTROPHILS # (AUTO) 17.2 x10^3/uL (2.2-4.8); NEUTROPHILS % (AUTO) 90.8 % (42.0-75.0); PLATELET COUNT 267 X10^3/uL (150.0-450.0); RED BLOOD COUNT 3.91 X10^6/uL (4.7-6.0); RED CELL DISTRIBUTION WIDTH 13.4 % (11.6-16.5)
[2017-03-01] MEDS: GLUCOPHAGE PO SCH ×2 (06:08→16:46)
[2017-03-01] MEDS: HumuLIN R SUBCUT PRN ×4 (06:09→21:19)
[2017-03-01 07:02] LABS: ALANINE AMINOTRANSFERASE 19 Units/L (12-78); ALBUMIN 2.9 g/dL (3.4-5.0); ALKALINE PHOSPHATASE 44 Units/L (46-116); ASPARTATE AMINO TRANSFERASE 6 Units/L (15-37); BLOOD UREA NITROGEN 18 mg/dL (7-18); CALCIUM 8.4 mg/dL (8.5-10.1); CARBON DIOXIDE 24.6 mmol/L (21-32); CHLORIDE 106 mmol/L (98-107); COR CA(FOR HYPOALB) 9.3 mg/dL (8.5-10.1); COR NA(FOR HYPERGLY) 143 mmol/L (136-145); CREATININE 1.09 mg/dL (0.70-1.30); GLUCOSE 243 mg/dL (65-99); SODIUM 140 mmol/L (136-145); TOTAL PROTEIN 5.6 g/dL (6.4-8.2); eGFR BLACK RACES > 60 (>60); eGFR NON BLACK RACES > 60 (>60)
[2017-03-01 08:19] LABS: BAND NEUTROPHILS % 4 % (0-10); PLATELET MORPHOLOGY COMMENT NORMAL (NORMAL)
[2017-03-01] MEDS: ALBUMIN HUMAN 25%- 100ML 100 ML IV SCH (08:30)
[2017-03-01] MEDS: ASPIRIN PO SCH (08:31)
[2017-03-01] MEDS: PriLOSEC PO SCH (08:31)
[2017-03-01] MEDS: CYMBALTA PO SCH (08:34)
[2017-03-01] MEDS: MOBIC TAB 15 MG PO SCH (08:34)
[2017-03-01] MEDS: MUCINEX EXPECTORANT PO SCH ×2 (08:34→21:20)
[2017-03-01] MEDS: COREG TAB 6.25 MG PO SCH ×2 (08:34→21:21)
[2017-03-01] MEDS: NICODERM PATCH 21 MG/24 HR TD SCH (08:36)
[2017-03-01] MEDS: MUCOMYST 20% 200 MG/ML NEB SCH ×4 (09:18→21:30)
[2017-03-01] MEDS: DUONEB 0.5 MG/3 MG NEB SCH ×4 (09:18→21:30)
[2017-03-01] MEDS: NEURONTIN CAP 400 MG PO SCH ×2 (09:23→21:20)
--- NOTE | 2017-03-01 10:07 | RAD ---
HISTORY: COPD exacerbation, shortness of breath Study: AP chest obtained 5:58 a.m. Comparison: February 28, 2017 Findings: The trachea is midline . There is no widening or shift of mediastinum. The heart is mildly enlarged. The costophrenic angles are sharp and both diaphragms are adequately maintained. The lungs are adeq uately aerated. Osseous structures are within normal limits for the patient's age patchy infiltrate noted lateral to the right hilum no significant improvement since the previous study. IMPRESSION: 1. Mild cardiomegaly. patchy infiltrate right midlung field unchanged since previous study. Reported By:
[2017-03-01] MEDS: SOLU-Medrol 40 MG VIAL IVP SCH ×2 (13:23→21:26)
[2017-03-01 13:38] LABS: CREATININE 1.06 mg/dL (0.70-1.30); VANCOMYCIN,TROUGH 17.3 ug/mL (15-20)
[2017-03-01] MEDS ORDERED: VANCOMYCIN HCL 1 GM VIAL IV SCH (18:00)
--- NOTE | 2017-03-01 18:01 | PCM.PROG ---
Progress Note - Progress Note for Day of Date: 03/01/17 - Subjective Subjective: PATIENT CONTINUES WITH CHEST CONGESTION AND WHEEZING. SPUTUM CONTINUES TO BE GABY BROWN AND THICK. PATIENT IS AFEBRILE. PATIENT CONTINUES ON VANCOMYCIN AND ZOSYN FOR MRSA PNEUMONIA ALONG WITH SMARTVEST, MUCINEX, SOLUMEDROL, NEB TX WITH MUCOMYST. ON AUSCULTATION, LUNGS CONTINUE WITH WHEEZING AND RHONCHI THROUGHOUT WITH SLOW IMPROVEMENT. CBC WNL EXCEPT: WBC 19.0, H/H 11.5/34.2. CMP WNL EXCEPT: GLUCOSE 243, CALCIUM 8.4, TOT PROTEIN 5.6, ALBUMIN 2.9. CHEST XRAY REPORTS PATCHY INFILTRATE RIGHT MIDLUNG FIELD UNCHANGED. WE WILL CONTINUE NEB TX, CONTINUE VANCOMYCIN IV, ZOSYN, DUONEBS, AND MUCINEX. WE WILL DECREASE SOLUMEDROL, CONTINUE TO MONITOR PATIENT ON TELEMETRY AND CONTINUOUS PULSE OXIMETRY. WE WILL FOLLOW UP IN AM WITH LABS, CHEST XRAY. - Past Medical Family Social History Past Med/Fam/Surg Hx: No changes since H&P Allergies: Allergies No Known Drug Allergy Allergy (Verified 01/22/17 13:56) - Review of Systems ROS: No change since H&P - Vital Signs and I&O's Vital Signs: Temperature 98.7 F Pulse Rate [Apical] 65 Pulse Rate [Left Radial] 54 Pulse Rate 59 Respiratory Rate 18 Blood Pressure [Right Arm] 153/72 Blood Pressure [Left Arm] 163/78 O2 Sat by Pulse Oximetry 99 Intake and Output: Intake & Output 02/27/17 02/28/17 03/01/17 03/02/17 11:59 11:59 11:59 11:59 Intake Total 4850 5041 4894 1776 Output Total 200 3975 Balance 4650 5041 919 1776 - Physical Exam Oriented: Normal, Time, Person, Place Eyes: Normal. negative: Blurred Vision, Diplopia, Discharge, Pain, Redness, Photophobia Ear: Normal. negative: Swelling, Ecchymosis, Hemotypanum, Abrasion, Laceration Nose: Normal. negative: Injected, Discharge, Blood Throat: Dry. negative: Tonsillar Hypertrophy, Exudate Respiratory: Generalized, Wheezes, Rhonchi Cardiovascular: Normal. negative: Murmur, Edema : Normal. negative: Dysuria, Hematuria, Frequency, Discharge, Testicular Pain Auscultation: Bowel Sounds: Normal. negative: Bruit Palpation: Normal Tenderness: Normal. negative: Rebound, Guarding, Rigidity Skin: Normal. negative: Diaphoresis, Wound, Bruising, Ecchymosis Musculoskeletal: Instability Psychiatric: Normal Mood Description: Calm, Appropriate Affect: Normal Speech Pattern: Clear, Appropriate - Laboratory and Diagnostics Result Diagrams: 03/01/17 03:15 03/01/17 13:10 Labs: Laboratory WBC 19.0 X10^3/uL (3.6-10.0) H 03/01/17 03:15 RBC 3.91 X10^6/uL (4.7-6.0) L 03/01/17 03:15 Hgb 11.5 g/dL (13.5-18.0) L 03/01/17 03:15 Hct 34.2 % (42.0-54.0) L 03/01/17 03:15 MCV 87.5 fL (80.0-100.0) 03/01/17 03:15 MCH 29.3 pg (27.0-34.0) 03/01/17 03:15 MCHC 33.4 g/dL (33.0-35.0) 03/01/17 03:15 RDW 13.4 % (11.6-16.5) 03/01/17 03:15 Plt Count 267 X10^3/uL (150.0-450.0) 03/01/17 03:15 Plt Count Comment Adequate (ADEQUATE) 03/01/17 03:15 MPV 9.3 fL (7.4-11.0) 03/01/17 03:15 Neut % 90.8 % (42.0-75.0) H 03/01/17 03:15 Lymph % 5.2 % (21.0-51.0) L 03/01/17 03:15 Ashley % 3.9 % (0.0-13.0) 03/01/17 03:15 Eos % 0.0 % (0.9-2.9) L 03/01/17 03:15 Baso % 0.1 % (0.2-1.0) L 03/01/17 03:15 Neut # 17.2 x10^3/uL (2.2-4.8) H 03/01/17 03:15 Lymph # 1.0 X10^3/uL (1.3-2.9) L 03/01/17 03:15 Ashley # 0.7 x10^3/uL (0.3-0.8) 03/01/17 03:15 Eos # 0.0 x10^3/uL (0.0-0.2) 03/01/17 03:15 Baso # 0.0 X10^3/uL (0.0-0.1) 03/01/17 03:15 Absolute Nucleated RBC 0.0 /100WBC 03/01/17 03:15 Total Counted 100 03/01/17 03:15 Neutrophils % (Manual) 83 % (39-76) H 03/01/17 03:15 Band Neutrophils % 4 % (0-10) 03/01/17 03:15 Lymphocytes % (Manual) 11 % (13-43) L 03/01/17 03:15 Monocytes % (Manual) 2 % (4-9) L 03/01/17 03:15 Metamyelocytes % 2 02/22/17 04:41 Plt Clumps, EDTA Rare 02/21/17 13:10 Plt Morphology Comment Normal (NORMAL) 03/01/17 03:15 RBC Morphology Normal (NORMAL) 03/01/17 03:15 INR Target Range - 02/23/17 09:47 INR 1.13 (0.8-1.3) 02/23/17 09:47 Sample Site Rrad 02/24/17 04:53 ABG pH 7.420 (7.35-7.45) 02/24/17 04:53 ABG pCO2 31.0 mmHg (35.0-45.0) L 02/24/17 04:53 ABG pO2 141.0 mmHg (80.0-100.0) H 02/24/17 04:53 ABG HCO3 20.1 mmol/L (22-26) L 02/24/17 04:53 ABG O2 Saturation 99.0 % (90-100) 02/24/17 04:53 ABG Base Excess -3.5 mmol/L (-2.0-2.0) L 02/24/17 04:53 Bong Test Pos 02/24/17 04:53 A-a Gradient 20.0 mmHg 02/24/17 04:53 FiO2 28.000 02/24/17 04:53 Blood Gas Comments Mallory abg well-mtf 02/24/17 04:53 Sodium 140 mmol/L (136-145) 03/01/17 03:15 Corrected Sodium 143 mmol/L (136-145) 03/01/17 03:15 Potassium 3.7 mmol/L (3.5-5.1) 03/01/17 03:15 Chloride 106 mmol/L (98-107) 03/01/17 03:15 Carbon Dioxide 24.6 mmol/L (21-32) 03/01/17 03:15 BUN 18 mg/dL (7-18) 03/01/17 03:15 Creatinine 1.06 mg/dL (0.70-1.30) 03/01/17 13:10 Est GFR (MDRD) Af Amer > 60 (>60) 03/01/17 03:15 Est GFR (MDRD) Non-Af > 60 (>60) 03/01/17 03:15 Glucose 243 mg/dL (65-99) H 03/01/17 03:15 Lactic Acid 1.8 mmol/L (0.4-2.0) 02/21/17 13:40 Calcium 8.4 mg/dL (8.5-10.1) L 03/01/17 03:15 Corrected Calcium 9.3 mg/dL (8.5-10.1) 03/01/17 03:15 Total Bilirubin 0.40 mg/dL (0.2-1.0) 03/01/17 03:15 AST 6 Units/L (15-37) L 03/01/17 03:15 ALT 19 Units/L (12-78) 03/01/17 03:15 Alkaline Phosphatase 44 Units/L (46-116) L 03/01/17 03:15 Creatine Kinase 170 Units/L (39-308) 02/23/17 18:05 CK-MB (CK-2) 3.7 ng/mL (0-4.0) 02/23/17 18:05 CK/CKMB % Calc 2.2 % (<4) 02/23/17 18:05 Troponin I < 0.02 ng/mL (0-1.5) 02/23/17 18:05 B-Natriuretic Peptide 94.2 pg/mL (0-79) H 02/21/17 13:10 Total Protein 5.6 g/dL (6.4-8.2) L 03/01/17 03:15 Albumin 2.9 g/dL (3.4-5.0) L 03/01/17 03:15 Globulin 2.7 g/dL (2.5-4.5) 03/01/17 03:15 Albumin/Globulin Ratio 1.1 Ratio (1.1-2.1) 03/01/17 03:15 Triglycerides 59 mg/dL (0-150) 02/22/17 04:41 Cholesterol 112 mg/dL (0-200) 02/22/17 04:41 LDL Cholesterol, Calc 70 mg/dL (0-100) 02/22/17 04:41 HDL Cholesterol 30 mg/dL (40-60) L 02/22/17 04:41 Cholesterol/HDL Ratio 3.7 (0.0-5.0) 02/22/17 04:41 Specimen Type Clean catch urine 02/21/17 15:31 Urine Color Dark yellow (YELLOW) 02/21/17 15:31 Urine Appearance Slightly hazy (CLEAR) 02/21/17 15:31 Urine pH 6.0 (5.0 - 8.0) 02/21/17 15:31 Ur Specific [place] 1.005 (1.000-1.030) 02/21/17 15:31 Urine Protein 2+ (NEGATIVE) 02/21/17 15:31 Urine Glucose (UA) Negative (NEGATIVE) 02/21/17 15:31 Urine Ketones Negative (NEGATIVE) 02/21/17 15:31 Urine Occult Blood 2+ (NEGATIVE) 02/21/17 15:31 Urine Nitrite Negative (NEGATIVE) 02/21/17 15:31 Urine Bilirubin Negative (NEGATIVE) 02/21/17 15:31 Urine Urobilinogen 1+ (NORMAL) 02/21/17 15:31 Ur Leukocyte Esterase 1+ (NEGATIVE) 02/21/17 15:31 Urine RBC Rare /HPF (NEGATIVE) 02/21/17 15:31 Urine WBC 03 - 06 /HPF (NEGATIVE) 02/21/17 15:31 Ur Squamous Epith Cells Rare /HPF (NEGATIVE) 02/21/17 15:31 Amorphous Sediment Trace /HPF (NEGATIVE) 02/21/17 15:31 Urine Bacteria Negative /HPF (NEGATIVE) 02/21/17 15:31 Urine Mucus Moderate /HPF (NEGATIVE) 02/21/17 15:31 Ur Culture Indicated? No/not indicated 02/21/17 15:31 Vancomycin Trough 17.3 ug/mL (15-20) 03/01/17 13:10 Random Vancomycin 13.1 ug/mL 02/24/17 13:20 Acetone, Semi-Quant Negative (NEGATIVE) 02/21/17 13:10 Influenza A (H1N1) PCR Not detected (NOT DETECT) 02/21/17 17:10 Influenza Type A (PCR) Negative (NEGATIVE) 02/21/17 17:10 Influenza Type B (PCR) Negative (NEGATIVE) 02/21/17 17:10 - Plan (1) MRSA pneumonia Status: Acute Qualifiers: Laterality: right Lung location: middle lobe of lung Qualified Code(s): J15.212 - Pneumonia due to Methicillin resistant Staphylococcus aureus Plan: DECREASE SOLUMEDROL, CONTINUE MUCOMYST TO NEB TREATMENTS, CONTINUE VANCOMYCIN IV, ZOSYN, MUCINEX, DUONEBS, SUPPLEMENTAL OXGYEN, MONITOR. (2) Respiratory distress Status: Acute Plan: CONTINUE DUONEBS, VANCOMYCIN, ZOSYN, SOLUMEDROL, MONITOR CONTINUOUS PULSE OXIMETRY AND TELEMETRY. (3) Altered mental state Status: Acute Qualifiers: Altered mental status type: transient alteration of awareness Coma depth: C Coma timing: C Qualified Code(s): R40.4 - Transient alteration of awareness Plan: CONTINUE TO MONITOR. (4) COPD exacerbation Status: Acute Plan: ABOVE. (5) Fever Status: Acute Qualifiers: Fever type: due to other condition Encounter type: E Qualified Code(s): R50.81 - Fever presenting with conditions classified elsewhere Plan: CONTINUE TO MONITOR, TYLENOL NEEDED. (6) Hypertension Status: Chronic Qualifiers: Hypertension type: essential hypertension Qualified Code(s): I10 - Essential (primary) hypertension (7) Hyperlipidemia Status: Chronic Qualifiers: Hyperlipidemia type: mixed hyperlipidemia Qualified Code(s): E78.2 - Mixed hyperlipidemia (8) CHF (congestive heart failure) Status: Chronic Qualifiers: Congestive heart failure type: systolic Congestive heart failure chronicity : acute on chronic Qualified Code(s): I50.23 - Acute on chronic systolic ( congestive) heart failure (9) Diabetes mellitus, type 2 Status: Chronic Qualifiers: Diabetes mellitus complication status: without complication Diabetes mellitus complication detail: D Diabetic retinopathy severity: D Proliferative retinopathy type: P Diabetes mellitus macular edema: D Diabetes mellitus shelter insulin use: without shelter use Laterality: L Chronic kidney disease stage: C Qualified Code(s): E11.9 - Type 2 diabetes mellitus without complications (10) GERD (gastroesophageal reflux disease) Status: Chronic Qualifiers: Esophagitis presence: esophagitis presence not specified Qualified Code(s) : K21.9 - Gastro-esophageal reflux disease without esophagitis (11) Anxiety Status: Chronic (12) Bipolar disorder Status: Chronic Qualifiers: Active/Remission status: currently active Current bipolar episode type: depressed Current episode severity: moderate Psychotic features: P Most recent bipolar episode type: M Qualified Code(s): F31.32 - Bipolar disorder, current episode depressed, moderate (13) DJD (degenerative joint disease) of pelvis Status: Chronic (14) Gout Status: Chronic Qualifiers: Gout site: G Gout etiology: G Encounter type: E Laterality: L Chronicity: C Presence of tophus: P (15) History of CT (myocardial infarction) Status: Chronic (16) History of angina Status: Chronic (17) Sleep apnea Status: Chronic Qualifiers: Sleep apnea type: S
[2017-03-01] MEDS: SNACK - Diabetic Appropriate PO SCH (20:18)
[2017-03-01] MEDS: KLONOPIN TAB 1 MG PO SCH (21:19)
[2017-03-01] MEDS: CRESTOR TAB 10 MG PO SCH (21:20)
[2017-03-02] MEDS ORDERED: NS 1/2 1000 ML IV 1,000 ML IV ONE (00:48)
[2017-03-02] MEDS: NS 1/2 1000 ML IV 1,000 ML IV SCH ×2 (00:55→08:56)
[2017-03-02 04:41] LABS: BASOPHILS % (AUTO) 0.2 % (0.2-1.0); HEMATOCRIT 36.2 % (42.0-54.0); LYMPHOCYTES # (AUTO) 0.8 X10^3/uL (1.3-2.9); LYMPHOCYTES % (AUTO) 4.1 % (21.0-51.0); MEAN CORPUSCULAR HEMOGLOBIN 29.3 pg (27.0-34.0); MEAN CORPUSCULAR VOLUME 88.8 fL (80.0-100.0); MEAN PLATELET VOLUME 9.3 fL (7.4-11.0); MONOCYTES # (AUTO) 0.6 x10^3/uL (0.3-0.8); MONOCYTES % (AUTO) 3.3 % (0.0-13.0); NEUTROPHILS # (AUTO) 17.7 x10^3/uL (2.2-4.8); NEUTROPHILS % (AUTO) 92.4 % (42.0-75.0); PLATELET COUNT 281 X10^3/uL (150.0-450.0); RED BLOOD COUNT 4.08 X10^6/uL (4.7-6.0); RED CELL DISTRIBUTION WIDTH 13.4 % (11.6-16.5); WHITE BLOOD COUNT 19.2 X10^3/uL (3.6-10.0)
[2017-03-02 04:43] LABS: ALANINE AMINOTRANSFERASE 20 Units/L (12-78); ALBUMIN 3.2 g/dL (3.4-5.0); ALKALINE PHOSPHATASE 45 Units/L (46-116); ASPARTATE AMINO TRANSFERASE 8 Units/L (15-37); BLOOD UREA NITROGEN 14 mg/dL (7-18); CALCIUM 8.6 mg/dL (8.5-10.1); CARBON DIOXIDE 29.5 mmol/L (21-32); CHLORIDE 104 mmol/L (98-107); COR CA(FOR HYPOALB) 9.2 mg/dL (8.5-10.1); COR NA(FOR HYPERGLY) 146 mmol/L (136-145); CREATININE 1.18 mg/dL (0.70-1.30); GLUCOSE 255 mg/dL (65-99); SODIUM 142 mmol/L (136-145); TOTAL PROTEIN 5.9 g/dL (6.4-8.2); eGFR BLACK RACES > 60 (>60); eGFR NON BLACK RACES > 60 (>60)
[2017-03-02] MEDS: ZOSYN VIAL 4.5 GM 4.5 GM in NS 100 ML IV + SPIKE MINIBAG* 100 ML IV SCH (05:21)
[2017-03-02] MEDS: VANCOMYCIN 1 GM PREMIX (ADDVANTAGE) 250 ML IV SCH (05:21)
[2017-03-02] MEDS: SOLU-Medrol 40 MG VIAL IVP SCH (05:22)
[2017-03-02] MEDS: ROBITUSSIN DM PO PRN (05:22)
[2017-03-02] MEDS: NORCO 10/325 TAB PO PRN (05:22)
[2017-03-02] MEDS: HumuLIN R SUBCUT PRN (05:23)
[2017-03-02] MEDS: LITHIUM CARBONATE (PLAIN) PO SCH (05:29)
[2017-03-02 06:01] LABS: BAND NEUTROPHILS % 5 % (0-10); PLATELET MORPHOLOGY COMMENT NORMAL (NORMAL)
[2017-03-02] MEDS ORDERED: GLUCOPHAGE ONE (06:12)
[2017-03-02] MEDS: GLUCOPHAGE PO SCH (06:16)
[2017-03-02] MEDS ORDERED: K-DUR TAB 20 MEQ PO PRN (06:23)
[2017-03-02] MEDS ORDERED: POTASSIUM CHLORIDE LIQ 20 MEQ UDC PO PRN (06:23)
[2017-03-02] MEDS ORDERED: K-RIDER 10 MEQ/NS 100 ML 10 MEQ/100 ML BAG IV PRN (06:23)
[2017-03-02] MEDS ORDERED: K-LYTE EFFERVESCENT PO PRN (06:23)
--- NOTE | 2017-03-02 07:08 | RAD ---
HISTORY: Fever, bronchitis, COPD Study: Chest one view Comparison: March 01, 2017, February 28, 2017 Findings: The heart is enlarged. No definite congestive heart failure is noted. Now visualized is a peripheral right basilar lung infiltrate suggestive of pneumonia. The remainder of the lung monte appear manuel r. The bony thorax is unremarkable. IMPRESSION: Peripheral right basilar lung infiltrate suggestive of pneumonia which should be followed until comp lete resolution. Cardiomegaly without congestive heart failure Reported By:
[2017-03-02] MEDS: ALBUMIN HUMAN 25%- 100ML 100 ML IV SCH (08:51)
[2017-03-02] MEDS: MOBIC TAB 15 MG PO SCH (08:52)
[2017-03-02] MEDS: ASPIRIN PO SCH (08:53)
[2017-03-02] MEDS: CYMBALTA PO SCH (08:53)
[2017-03-02] MEDS: MUCINEX EXPECTORANT PO SCH (08:53)
[2017-03-02] MEDS: PriLOSEC PO SCH (08:53)
[2017-03-02] MEDS: NEURONTIN CAP 400 MG PO SCH (08:53)
[2017-03-02] MEDS: COREG TAB 6.25 MG PO SCH (08:54)
[2017-03-02] MEDS: NICODERM PATCH 21 MG/24 HR TD SCH (08:55)
[2017-03-02] MEDS: MUCOMYST 20% 200 MG/ML NEB SCH (09:24)
[2017-03-02] MEDS: DUONEB 0.5 MG/3 MG NEB SCH (09:24)
[2017-03-02 10:03] VITALS: BP 163/81
== END 2017-03-02 11:12 | disposition home or self-care (01) | DRG 177 ==
LOC: ER 13:03 → MED/SURG 17:01 → ICU 02-23 09:10 → OBSVTOIN 02-23 09:30
PROVIDERS: ADMIT Internal Medicine; ATTEND Internal Medicine
DX: J15.212 Pneumonia due to Methicillin resistant Staphylococcus aureus (principal); J20.8 Acute bronchitis due to other specified organisms; R06.00 Dyspnea, unspecified; J44.1 Chronic obstructive pulmonary disease with (acute) exacerbation; R50.81 Fever presenting with conditions classified elsewhere; R06.02 Shortness of breath; E11.65 Type 2 diabetes mellitus with hyperglycemia; E78.2 Mixed hyperlipidemia; I10 Essential (primary) hypertension; R94.31 Abnormal electrocardiogram [ECG] [EKG]; I50.23 Acute on chronic systolic (congestive) heart failure; F41.8 Other specified anxiety disorders; K21.9 Gastro-esophageal reflux disease without esophagitis; F31.32 Bipolar disorder, current episode depressed, moderate; G47.39 Other sleep apnea; I25.2 Old myocardial infarction; M16.0 Bilateral primary osteoarthritis of hip; R41.82 Altered mental status, unspecified
CPT/HCPCS: 36415; 36600; 70450; 71010; 71020; 73564; 80053; 80061; 80202; 81001; 82009; 82550; 82553; 82565; 82803; 82947; 83605; 83880; 84484; 85025; 85610; 87040; 87070; 87077; 87186; 87205; 87502; 87503; 93005; 94640; 94667; 94668; 94669; 94760; 96365; 96374; 97535; 99217; 99284; A4216; A4222; P9047; G0378; J0696; J1815; J2543; J2920; J2930; J3370; J7608; J7620

== ENCOUNTER 2017-03-05 13:06 | Emergency (ER) | payer OTHER ==
[2017-03-05 13:12] VITALS: BP 122/88; BMI 31.1
--- NOTE | 2017-03-05 14:59 | DR.GENAD ---
HPI - PCP Primary Care Physician: kathleen - Complaint/Symptoms Chief Complaint Doctors Comments: Patient states that he is unable to tolerate po intake. When he was hospitalized he and his pcp thought he was doing better , patient decided to leave since he felt better. Chief Complaint:: patient was in the hospital here and signed his self out ama 3 days ago. he thought he felt better but he stated he has not eat in 12 days and he feels bad. - Source History Provided: Patient - Mode of Arrival Mode of Arrival: Ambulatory - Timing Onset of Chief Complaint: 02/23/17 PMH - PMH Past Medical History: Yes Past Medical History: CHF, COPD, Diabetes, Dyslipidemia, Hypertension Past Surgical History: Yes Surgical History: Angioplasty/Stents, Ortho Surgery - Family History History of Family Medical Conditions: Yes Family Medical History: Diabetes Mellitus - Social History Does patient currently use any type of tobacco product: Yes Have you used tobacco products in the last 12 months: Yes Type of Tobacco Use: Cigarettes How many years tobacco product used: 30 Does any household member use tobacco: No Alcohol Use: None Do you use any recreational Drugs:: No Lives With: Alone Lives Where: Home - infectious screening In the last 2 months have you had wt loss of >10#?: NO Have you had fever, night sweats or hemotysis?: No Have you traveled outside the country in the last 6 months?: No Isolation: Standard ROS - Review of Systems Eyes: No Symptoms Reported ENTM: No Symptoms Reported Respiratoy: Dry Cough Cardiovascular: No Symptoms Reported Gastrointestinal/Abdominal: No Symptoms Reported Genitourinary: No Symptoms Reported Neurological: No Symptoms Reported Musculoskeletal: No Symptoms Reported Integumentary: No Symptoms Reported Hematologic/Lymphatic: No Symptoms Reported Endocrine: No Symptoms Reported Psychiatric: No Symptoms Reported All Other Systems: Reviewed and Negative PE - Vital Signs Vitals: Temperature 98.6 F Pulse Rate 68 Respiratory Rate 16 Blood Pressure [Right Arm] 163/81 Blood Pressure [Left Arm] 163/78 Blood Pressure 122/88 O2 Sat by Pulse Oximetry 98 - General Limitations: No Limitations General Appearance: Alert, In No Apparent Distress - Head Head Exam: Normal Inspection, Atraumatic - Eyes Eye exam: Normal Appearance, PERRL, EOMI - ENT ENT Exam: Normal Exam External Ear Exam: Normal External Inspection TM/Canal Exam: Bilateral Normal Nose Exam: Normal Nose Exam Mouth Exam: Normal Inspection Throat Exam: Normal Inspection - Neck Neck Exam: Normal Inspection - Chest Chest Inspection: Normal Inspection - Respiratory Respiratory Exam: Normal Lung Sounds Bilat Respiratory Exam: Bilateral Wheezing (inspiratory) - Cardiovascular Cardiovascular Exam: Regular Rate, Normal Rhythm - Abdominal Exam Abdominal Exam: Normal Inspection Abdominal Tenderness: negative: RUQ, RLQ, LUQ, LLQ, Epigastrium, Suprapubic, Diffuse, Mild, Moderate, Severe, Other - Extremities Extremities Exam: Normal Inspection, Full ROM - Back Back Exam: Normal Inspection, Full ROM - Psychiatric Psychiatric Exam: Normal Affect, Normal Mood - Skin Skin Exam: Warm, Dry Course - Treatment Treatment: Imprvoed s/p one duoNeb treatments; left before next treatment and repeat chest x ray. - Reevaluation 1st: Improved ROR - Labs Reviewed Result Diagrams: 03/05/17 15:05 03/05/17 15:05 Laboratory: WBC 17.9 X10^3/uL (3.6-10.0) H 03/05/17 15:05 RBC 4.38 X10^6/uL (4.7-6.0) L 03/05/17 15:05 Hgb 12.8 g/dL (13.5-18.0) L 03/05/17 15:05 Hct 38.7 % (42.0-54.0) L 03/05/17 15:05 MCV 88.2 fL (80.0-100.0) 03/05/17 15:05 MCH 29.1 pg (27.0-34.0) 03/05/17 15:05 MCHC 33.0 g/dL (33.0-35.0) 03/05/17 15:05 RDW 14.0 % (11.6-16.5) 03/05/17 15:05 Plt Count 222 X10^3/uL (150.0-450.0) 03/05/17 15:05 MPV 8.5 fL (7.4-11.0) 03/05/17 15:05 Neut % 81.5 % (42.0-75.0) H 03/05/17 15:05 Lymph % 9.8 % (21.0-51.0) L 03/05/17 15:05 [place] % 6.4 % (0.0-13.0) 03/05/17 15:05 Eos % 1.7 % (0.9-2.9) 03/05/17 15:05 Baso % 0.6 % (0.2-1.0) 03/05/17 15:05 Neut # 14.6 x10^3/uL (2.2-4.8) H 03/05/17 15:05 Lymph # 1.8 X10^3/uL (1.3-2.9) 03/05/17 15:05 [place]yer # 1.1 x10^3/uL (0.3-0.8) H 03/05/17 15:05 Eos # 0.3 x10^3/uL (0.0-0.2) H 03/05/17 15:05 Baso # 0.1 X10^3/uL (0.0-0.1) 03/05/17 15:05 Absolute Nucleated RBC 0.0 /100WBC 03/05/17 15:05 Sodium 142 mmol/L (136-145) 03/05/17 15:05 Corrected Sodium 143 mmol/L (136-145) 03/05/17 15:05 Potassium 3.5 mmol/L (3.5-5.1) 03/05/17 15:05 Chloride 105 mmol/L (98-107) 03/05/17 15:05 Carbon Dioxide 28.0 mmol/L (21-32) 03/05/17 15:05 BUN 9 mg/dL (7-18) 03/05/17 15:05 Creatinine 1.13 mg/dL (0.70-1.30) 03/05/17 15:05 Est GFR (MDRD) Af Amer > 60 (>60) 03/05/17 15:05 Est GFR (MDRD) Non-Af > 60 (>60) 03/05/17 15:05 Glucose 142 mg/dL (65-99) H 03/05/17 15:05 Calcium 8.6 mg/dL (8.5-10.1) 03/05/17 15:05 Corrected Calcium 9.4 mg/dL (8.5-10.1) 03/05/17 15:05 Total Bilirubin 0.50 mg/dL (0.2-1.0) 03/05/17 15:05 AST 9 Units/L (15-37) L 03/05/17 15:05 ALT 19 Units/L (12-78) 03/05/17 15:05 Alkaline Phosphatase 54 Units/L (46-116) 03/05/17 15:05 C-Reactive Protein 36.80 mg/L (0-3.0) H 03/05/17 15:05 Total Protein 6.2 g/dL (6.4-8.2) L 03/05/17 15:05 Albumin 3.0 g/dL (3.4-5.0) L 03/05/17 15:05 Globulin 3.2 g/dL (2.5-4.5) 03/05/17 15:05 Albumin/Globulin Ratio 0.9 Ratio (1.1-2.1) L 03/05/17 15:05 - Diagnosis Discharge Problem: COPD (chronic obstructive pulmonary disease) Qualifiers: COPD type: unspecified COPD Qualified Code(s): J44.9 - Chronic obstructive pulmonary disease, unspecified - Discharge Plan Disposition: AGAINST MEDICAL ADVICE Condition: Stable - Follow ups/Referrals Follow ups/Referrals: Manjit Vicente [Primary Care Provider] - 3 days - Instructions
[2017-03-05] MEDS ORDERED: DECADRON JET NEB NEB ONE ×2 (15:00→15:10)
[2017-03-05] MEDS ORDERED: DUONEB 0.5 MG/3 MG ONE (15:10)
[2017-03-05 15:23] LABS: BASOPHILS # (AUTO) 0.1 X10^3/uL (0.0-0.1); BASOPHILS % (AUTO) 0.6 % (0.2-1.0); EOSINOPHILS # (AUTO) 0.3 x10^3/uL (0.0-0.2); EOSINOPHILS % (AUTO) 1.7 % (0.9-2.9); HEMATOCRIT 38.7 % (42.0-54.0); HEMOGLOBIN 12.8 g/dL (13.5-18.0); LYMPHOCYTES # (AUTO) 1.8 X10^3/uL (1.3-2.9); LYMPHOCYTES % (AUTO) 9.8 % (21.0-51.0); MEAN CORPUSCULAR HEMOGLOBIN 29.1 pg (27.0-34.0); MEAN CORPUSCULAR VOLUME 88.2 fL (80.0-100.0); MEAN PLATELET VOLUME 8.5 fL (7.4-11.0); MONOCYTES # (AUTO) 1.1 x10^3/uL (0.3-0.8); MONOCYTES % (AUTO) 6.4 % (0.0-13.0); NEUTROPHILS # (AUTO) 14.6 x10^3/uL (2.2-4.8); NEUTROPHILS % (AUTO) 81.5 % (42.0-75.0); PLATELET COUNT 222 X10^3/uL (150.0-450.0); RED BLOOD COUNT 4.38 X10^6/uL (4.7-6.0); WHITE BLOOD COUNT 17.9 X10^3/uL (3.6-10.0)
[2017-03-05 15:31] LABS: ALANINE AMINOTRANSFERASE 19 Units/L (12-78); ALKALINE PHOSPHATASE 54 Units/L (46-116); ASPARTATE AMINO TRANSFERASE 9 Units/L (15-37); BLOOD UREA NITROGEN 9 mg/dL (7-18); CALCIUM 8.6 mg/dL (8.5-10.1); CHLORIDE 105 mmol/L (98-107); COR CA(FOR HYPOALB) 9.4 mg/dL (8.5-10.1); COR NA(FOR HYPERGLY) 143 mmol/L (136-145); CREATININE 1.13 mg/dL (0.70-1.30); GLUCOSE 142 mg/dL (65-99); SODIUM 142 mmol/L (136-145); TOTAL PROTEIN 6.2 g/dL (6.4-8.2); eGFR BLACK RACES > 60 (>60); eGFR NON BLACK RACES > 60 (>60)
[2017-03-05] MEDS ORDERED: DUONEB 0.5 MG/3 MG NEB ONE (15:33)
[2017-03-05] MEDS ORDERED: DUONEB 0.5 MG/3 MG NEB SCH (21:00)
== END 2017-03-05 15:45 | disposition left against medical advice (07) ==
LOC: ER 13:30
DX: J44.9 Chronic obstructive pulmonary disease, unspecified (principal)
CPT/HCPCS: 36415; 80053; 85025; 86140; 94640; 99282; 99283; J7620

== ENCOUNTER 2017-04-08 15:19 | Inpatient (IN) | payer OTHER ==
[2017-04-08] MEDS ORDERED: TUSSIONEX PENNKINETIC SUSP PO PRN ×2 (15:32→16:31)
[2017-04-08] MEDS ORDERED: LEVAQUIN PREMIX IV 750 MG 750 MG/150 ML BAG IV SCH (16:00)
[2017-04-08] MEDS ORDERED: NS 1/2 1000 ML IV 1,000 ML IV SCH (16:00)
[2017-04-08] MEDS ORDERED: ZOSYN VIAL 4.5 GM 4.5 GM in NS 100 ML IV + SPIKE MINIBAG* 100 ML IV SCH (16:00)
[2017-04-08] MEDS ORDERED: NS 1/2 1000 ML IV 1,000 ML IV ONE (16:45)
[2017-04-08] MEDS ORDERED: DUONEB 0.5 MG/3 MG NEB SCH (17:00)
[2017-04-08] MEDS ORDERED: ROBITUSSIN DM PO SCH (17:00)
[2017-04-08] MEDS: LEVAQUIN PREMIX IV 750 MG 750 MG/150 ML BAG IV SCH (17:01)
[2017-04-08] MEDS: NS 1/2 1000 ML IV 1,000 ML IV SCH (17:01)
[2017-04-08] MEDS: ROBITUSSIN DM PO SCH ×2 (17:01→21:13)
[2017-04-08] MEDS: ZOSYN VIAL 4.5 GM 4.5 GM in NS 100 ML IV + SPIKE MINIBAG* 100 ML IV SCH ×2 (17:02→23:33)
[2017-04-08 17:06] LABS: BASOPHILS # (AUTO) 0.1 X10^3/uL (0.0-0.1); BASOPHILS % (AUTO) 1.4 % (0.2-1.0); EOSINOPHILS # (AUTO) 0.1 x10^3/uL (0.0-0.2); EOSINOPHILS % (AUTO) 0.9 % (0.9-2.9); HEMOGLOBIN 13.3 g/dL (13.5-18.0); LYMPHOCYTES # (AUTO) 2.9 X10^3/uL (1.3-2.9); LYMPHOCYTES % (AUTO) 29.5 % (21.0-51.0); MEAN CORPUSCULAR HEMOGLOBIN 30.1 pg (27.0-34.0); MEAN CORPUSCULAR VOLUME 88.4 fL (80.0-100.0); MEAN PLATELET VOLUME 8.8 fL (7.4-11.0); MONOCYTES # (AUTO) 0.6 x10^3/uL (0.3-0.8); MONOCYTES % (AUTO) 6.1 % (0.0-13.0); NEUTROPHILS % (AUTO) 62.1 % (42.0-75.0); PLATELET COUNT 261 X10^3/uL (150.0-450.0); RED BLOOD COUNT 4.42 X10^6/uL (4.7-6.0); RED CELL DISTRIBUTION WIDTH 14.5 % (11.6-16.5); WHITE BLOOD COUNT 9.7 X10^3/uL (3.6-10.0)
--- NOTE | 2017-04-08 17:12 | DR.UPDATE ---
H&P Update History and Physical Update: History and Physical reviewed and patient examined. Changes noted: NO Yes with the following: Patient admitted with diagnosis of community acquired pneumonia and fever. Patient started on 1/2 NS @75ml/hr, Levaquin 750mg IV DAily, Zosyn 4.5gm IV TID , Robitussin DM, Tussionex and duonebs QID and budesonide neb treatment BID.
[2017-04-08] MEDS: DUONEB 0.5 MG/3 MG NEB SCH ×2 (17:13→20:44)
[2017-04-08 17:22] LABS: ALANINE AMINOTRANSFERASE 22 Units/L (12-78); ALBUMIN 3.8 g/dL (3.4-5.0); ALKALINE PHOSPHATASE 72 Units/L (46-116); ASPARTATE AMINO TRANSFERASE 21 Units/L (15-37); BLOOD UREA NITROGEN 17 mg/dL (7-18); CALCIUM 9.3 mg/dL (8.5-10.1); CARBON DIOXIDE 24.4 mmol/L (21-32); CHLORIDE 105 mmol/L (98-107); COR NA(FOR HYPERGLY) 140 mmol/L (136-145); CREATININE 1.26 mg/dL (0.70-1.30); GLUCOSE 227 mg/dL (65-99); SODIUM 137 mmol/L (136-145); TOTAL PROTEIN 8.1 g/dL (6.4-8.2); eGFR BLACK RACES > 60 (>60); eGFR NON BLACK RACES > 60 (>60)
[2017-04-08] MEDS ORDERED: SALINE 3% 15 ML NEB TX ONE (17:30)
[2017-04-08] MEDS ORDERED: SALINE 3% 15 ML NEB TX NEB ONE (17:33)
[2017-04-08 17:50] LABS: ERYTHROCYTE SEDIMENTATION RATE 48 MM/HOUR (0-15)
[2017-04-08 18:14] VITALS: BMI 29.2
--- NOTE | 2017-04-08 18:16 | RAD ---
CHEST RADIOGRAPHS PA AND LATERAL VIEWS CLINICAL HISTORY: 56-year-old male with productive cough and fever. COMPARISON: Chest radiograph March 02, 2017. FINDINGS: Cardiac stent unchanged. The cardiopericardial silhouette is normal. Ill-defined hazy opac ity within the right midlung with chronic prominent perihilar lung markings. No effusion or pneumoth orax. The lungs are well inflated. Pulmonary vascularity is normal. Imaged osseous structures are in tact. Soft tissues are unremarkable. IMPRESSION: Resolving pneumonia with mild residual airspace opacity in the right midlung without other acute car diopulmonary process. Reported By:
[2017-04-08] MEDS: PULMICORT NEB TX 0.5 MG NEB SCH (20:44)
[2017-04-08] MEDS ORDERED: GLUCOPHAGE ONE (20:49)
[2017-04-08] MEDS ORDERED: PULMICORT NEB TX 0.5 MG NEB SCH (21:00)
[2017-04-08] MEDS: CRESTOR TAB 10 MG PO SCH (21:12)
[2017-04-08] MEDS: GLUCOPHAGE PO SCH (21:13)
[2017-04-08] MEDS: NORCO 10/325 TAB PO PRN (21:13)
[2017-04-08] MEDS: KLONOPIN TAB 1 MG PO SCH (21:14)
[2017-04-08] MEDS: COREG TAB 6.25 MG PO SCH (21:14)
[2017-04-08] MEDS: LITHIUM CARBONATE (PLAIN) PO SCH (21:15)
[2017-04-08] MEDS: NICODERM PATCH 21 MG/24 HR TD SCH (22:07)
[2017-04-09] MEDS ORDERED: ZOFRAN INJ 4 MG VIAL IVP PRN (05:07)
[2017-04-09] MEDS: ZOSYN VIAL 4.5 GM 4.5 GM in NS 100 ML IV + SPIKE MINIBAG* 100 ML IV SCH ×3 (05:20→20:58)
[2017-04-09 06:16] LABS: BASOPHILS % (AUTO) 0.1 % (0.2-1.0); EOSINOPHILS # (AUTO) 0.1 x10^3/uL (0.0-0.2); EOSINOPHILS % (AUTO) 1.3 % (0.9-2.9); HEMATOCRIT 37.4 % (42.0-54.0); HEMOGLOBIN 12.9 g/dL (13.5-18.0); LYMPHOCYTES # (AUTO) 0.8 X10^3/uL (1.3-2.9); LYMPHOCYTES % (AUTO) 7.7 % (21.0-51.0); MEAN CORPUSCULAR HEMOGLOBIN 30.3 pg (27.0-34.0); MEAN CORPUSCULAR HGB CONC 34.4 g/dL (33.0-35.0); MEAN CORPUSCULAR VOLUME 88.1 fL (80.0-100.0); MEAN PLATELET VOLUME 9.2 fL (7.4-11.0); MONOCYTES # (AUTO) 0.5 x10^3/uL (0.3-0.8); NEUTROPHILS # (AUTO) 9.3 x10^3/uL (2.2-4.8); NEUTROPHILS % (AUTO) 85.9 % (42.0-75.0); PLATELET COUNT 227 X10^3/uL (150.0-450.0); RED BLOOD COUNT 4.25 X10^6/uL (4.7-6.0); RED CELL DISTRIBUTION WIDTH 14.5 % (11.6-16.5); WHITE BLOOD COUNT 10.9 X10^3/uL (3.6-10.0)
--- NOTE | 2017-04-09 06:16 | RAD ---
HISTORY: Follow up pneumonia Study: Chest two-view Comparison: April 08, 2017 Findings: The heart is within normal limits in size. The chery are normal. The lungs are well inflated. Residua l infiltrate remains in the right mid lung slightly less prominent than on the prior examination. Co ntinued follow up until complete resolution is recommended. The remainder of the lung monte are kelly ar. No pleural effusions are identified. The bony thorax is unremarkable. A Coronary artery stent is present. IMPRESSION: Small residual right mid lung infiltrate. Continued follow up until complete resolution is recommend ed. Reported By:
[2017-04-09 06:48] LABS: ALANINE AMINOTRANSFERASE 20 Units/L (12-78); ALBUMIN 3.1 g/dL (3.4-5.0); ALKALINE PHOSPHATASE 59 Units/L (46-116); ASPARTATE AMINO TRANSFERASE 16 Units/L (15-37); BLOOD UREA NITROGEN 19 mg/dL (7-18); CALCIUM 9.1 mg/dL (8.5-10.1); CARBON DIOXIDE 26.6 mmol/L (21-32); CHLORIDE 104 mmol/L (98-107); COR CA(FOR HYPOALB) 9.8 mg/dL (8.5-10.1); COR NA(FOR HYPERGLY) 142 mmol/L (136-145); CREATININE 1.17 mg/dL (0.70-1.30); GLUCOSE 153 mg/dL (65-99); SODIUM 141 mmol/L (136-145); TOTAL PROTEIN 7.1 g/dL (6.4-8.2); eGFR BLACK RACES > 60 (>60); eGFR NON BLACK RACES > 60 (>60)
[2017-04-09] MEDS ORDERED: NS 1/2 1000 ML IV 1,000 ML IV ONE ×2 (06:58→23:49)
[2017-04-09] MEDS: ZOFRAN TAB 4 MG SL PRN ×2 (06:59→21:28)
[2017-04-09] MEDS: NS 1/2 1000 ML IV 1,000 ML IV SCH (07:00)
[2017-04-09 07:21] LABS: ERYTHROCYTE SEDIMENTATION RATE 33 MM/HOUR (0-15)
[2017-04-09] MEDS ORDERED: GLUCOPHAGE ONE ×2 (08:44→20:37)
[2017-04-09] MEDS: PULMICORT NEB TX 0.5 MG NEB SCH ×2 (08:55→20:33)
[2017-04-09] MEDS: DUONEB 0.5 MG/3 MG NEB SCH ×4 (08:55→20:30)
[2017-04-09] MEDS: LEVAQUIN PREMIX IV 750 MG 750 MG/150 ML BAG IV SCH (09:18)
[2017-04-09] MEDS: ASPIRIN PO SCH (09:21)
[2017-04-09] MEDS: ROBITUSSIN DM PO SCH ×4 (09:21→20:58)
[2017-04-09] MEDS: COREG TAB 6.25 MG PO SCH ×2 (09:21→20:58)
[2017-04-09] MEDS: MOBIC TAB 15 MG PO SCH (09:22)
[2017-04-09] MEDS: PriLOSEC PO SCH (09:22)
[2017-04-09] MEDS: GLUCOPHAGE PO SCH ×2 (09:22→20:58)
[2017-04-09] MEDS: LITHIUM CARBONATE (PLAIN) PO SCH ×2 (09:22→20:57)
[2017-04-09] MEDS: NICODERM PATCH 21 MG/24 HR TD SCH (09:23)
[2017-04-09] MEDS: CYMBALTA PO SCH (09:23)
[2017-04-09] MEDS: PLAVIX PO SCH (09:27)
[2017-04-09] MEDS: NORCO 10/325 TAB PO PRN ×2 (09:35→21:28)
[2017-04-09] MEDS ORDERED: NS 250 ML IV 250 ML IV ONE (15:14)
--- NOTE | 2017-04-09 15:16 | PCM.PROG ---
Progress Note - Progress Note for Day of Date: 04/09/17 - Subjective Subjective: Patient is a 56 yo male who was admitted with pneumonia and fever. Patient was started on pneumonia protocol including IV Zosyn and Levaquin. Patient states this am that he has been vomiting for which he has been receiving Zofran for. On exam lungs are noted to have bilateral coarse rhonchi. Vital signs this am 100.1, 85, 19, 95%, 107/73. Labs are within normal limits with the exception of WBC 10.9, RBC 4.25, hgb 12.9, Hct 37.4, Neut% 85.9, Lymph % 7.7, Baso% 0.1, Neut# 9.3, Lymph# 0.8, ESR 33, BUN 19, Glucose 153, 4.90, Albumin 3.1, Albumin/Globulin Ratio 0.8. Chest Xray shows small residual right mid lung infiltrate. We are going to continue patient with his current treatment with pneumonia protocol and follow up with repeat labs and chest xray in the am - Past Medical Family Social History Past Med/Fam/Surg Hx: No changes since H&P Allergies: Allergies Atorvastatin [From Lipitor] Allergy (Verified 04/08/17 19:26) - Review of Systems ROS: No change since H&P - Vital Signs and I&O's Vital Signs: 100.1, 85, 19, 95%, 107/73. Intake and Output: Intake & Output 04/07/17 04/08/17 04/09/17 04/10/17 11:59 11:59 11:59 11:59 Intake Total 1245 Balance 1245 - Physical Exam Oriented: Normal Eyes: Normal Ear: Normal Nose: Normal Throat: Normal Respiratory: Rhonchi (Bilateral coarse rhochi) Cardiovascular: Normal : Normal Auscultation: Bowel Sounds: Normal Palpation: Normal Tenderness: Normal Skin: Normal Musculoskeletal: Normal Psychiatric: Normal Mood Description: Calm Affect: Normal Speech Pattern: Clear, Appropriate - Laboratory and Diagnostics Result Diagrams: 04/09/17 04:10 04/09/17 04:10 Labs: 04/08/17 17:44 Sputum - Expectorated Sputum Sputum Culture - Preliminary 04/08/17 17:44 Sputum - Expectorated Sputum - Final Laboratory WBC 10.9 X10^3/uL (3.6-10.0) H 04/09/17 04:10 RBC 4.25 X10^6/uL (4.7-6.0) L 04/09/17 04:10 Hgb 12.9 g/dL (13.5-18.0) L 04/09/17 04:10 Hct 37.4 % (42.0-54.0) L 04/09/17 04:10 MCV 88.1 fL (80.0-100.0) 04/09/17 04:10 MCH 30.3 pg (27.0-34.0) 04/09/17 04:10 MCHC 34.4 g/dL (33.0-35.0) 04/09/17 04:10 RDW 14.5 % (11.6-16.5) 04/09/17 04:10 Plt Count 227 X10^3/uL (150.0-450.0) 04/09/17 04:10 MPV 9.2 fL (7.4-11.0) 04/09/17 04:10 Neut % 85.9 % (42.0-75.0) H 04/09/17 04:10 Lymph % 7.7 % (21.0-51.0) L 04/09/17 04:10 [place] % 5.0 % (0.0-13.0) 04/09/17 04:10 Eos % 1.3 % (0.9-2.9) 04/09/17 04:10 Baso % 0.1 % (0.2-1.0) L 04/09/17 04:10 Neut # 9.3 x10^3/uL (2.2-4.8) H 04/09/17 04:10 Lymph # 0.8 X10^3/uL (1.3-2.9) L 04/09/17 04:10 [place] # 0.5 x10^3/uL (0.3-0.8) 04/09/17 04:10 Eos # 0.1 x10^3/uL (0.0-0.2) 04/09/17 04:10 Baso # 0.0 X10^3/uL (0.0-0.1) 04/09/17 04:10 Absolute Nucleated RBC 0.0 /100WBC 04/09/17 04:10 ESR 33 MM/HOUR (0-15) H 04/09/17 04:10 Sodium 141 mmol/L (136-145) 04/09/17 04:10 Corrected Sodium 142 mmol/L (136-145) 04/09/17 04:10 Potassium 3.7 mmol/L (3.5-5.1) 04/09/17 04:10 Chloride 104 mmol/L (98-107) 04/09/17 04:10 Carbon Dioxide 26.6 mmol/L (21-32) 04/09/17 04:10 BUN 19 mg/dL (7-18) H 04/09/17 04:10 Creatinine 1.17 mg/dL (0.70-1.30) 04/09/17 04:10 Est GFR (MDRD) Af Amer > 60 (>60) 04/09/17 04:10 Est GFR (MDRD) Non-Af > 60 (>60) 04/09/17 04:10 Glucose 153 mg/dL (65-99) H 04/09/17 04:10 Calcium 9.1 mg/dL (8.5-10.1) 04/09/17 04:10 Corrected Calcium 9.8 mg/dL (8.5-10.1) 04/09/17 04:10 Total Bilirubin 0.40 mg/dL (0.2-1.0) 04/09/17 04:10 AST 16 Units/L (15-37) 04/09/17 04:10 ALT 20 Units/L (12-78) 04/09/17 04:10 Alkaline Phosphatase 59 Units/L (46-116) 04/09/17 04:10 C-Reactive Protein 4.90 mg/L (0-3.0) H 04/09/17 04:10 Total Protein 7.1 g/dL (6.4-8.2) 04/09/17 04:10 Albumin 3.1 g/dL (3.4-5.0) L 04/09/17 04:10 Globulin 4.0 g/dL (2.5-4.5) 04/09/17 04:10 Albumin/Globulin Ratio 0.8 Ratio (1.1-2.1) L 04/09/17 04:10 Radiology Reviewed: Yes - Plan (1) Pneumonia Status: Acute Qualifiers: Pneumonia type: P Aspiration pneumonia type: A Laterality: L Lung location: L Plan: continue with pneumonia protocol including nebs, IV Antibiotics, IVF (2) COPD (chronic obstructive pulmonary disease) Status: Acute Qualifiers: COPD type: C Chronic bronchitis type: C Emphysema type: E Plan: supplemental oxygen, duonebs, budesonide (3) Anxiety Status: Chronic Plan: continue clonazepam and duloxetine (4) Diabetes mellitus, type 2 Status: Chronic Qualifiers: Diabetes mellitus complication status: D Diabetes mellitus complication detail: D Diabetic retinopathy severity: D Proliferative retinopathy type: P Diabetes mellitus macular edema: D Diabetes mellitus tank terminal gauger insulin use : D Laterality: L Chronic kidney disease stage: C Plan: continue metformin (5) Hyperlipidemia Status: Chronic Qualifiers: Hyperlipidemia type: H Plan: continue crestor
[2017-04-09] MEDS: CRESTOR TAB 10 MG PO SCH (20:57)
[2017-04-09] MEDS: KLONOPIN TAB 1 MG PO SCH (20:58)
[2017-04-09] MEDS: SNACK - Diabetic Appropriate PO SCH (21:30)
[2017-04-10] MEDS: NS 1/2 1000 ML IV 1,000 ML IV SCH ×3 (00:12→15:01)
[2017-04-10] MEDS: ZOSYN VIAL 4.5 GM 4.5 GM in NS 100 ML IV + SPIKE MINIBAG* 100 ML IV SCH ×3 (05:36→21:51)
[2017-04-10 05:37] LABS: BASOPHILS % (AUTO) 0.3 % (0.2-1.0); EOSINOPHILS # (AUTO) 0.3 x10^3/uL (0.0-0.2); EOSINOPHILS % (AUTO) 4.3 % (0.9-2.9); HEMATOCRIT 33.1 % (42.0-54.0); HEMOGLOBIN 11.3 g/dL (13.5-18.0); LYMPHOCYTES # (AUTO) 1.5 X10^3/uL (1.3-2.9); MEAN CORPUSCULAR HEMOGLOBIN 30.3 pg (27.0-34.0); MEAN CORPUSCULAR HGB CONC 34.2 g/dL (33.0-35.0); MEAN CORPUSCULAR VOLUME 88.5 fL (80.0-100.0); MEAN PLATELET VOLUME 9.4 fL (7.4-11.0); MONOCYTES # (AUTO) 0.6 x10^3/uL (0.3-0.8); MONOCYTES % (AUTO) 9.3 % (0.0-13.0); NEUTROPHILS # (AUTO) 3.9 x10^3/uL (2.2-4.8); NEUTROPHILS % (AUTO) 62.1 % (42.0-75.0); PLATELET COUNT 191 X10^3/uL (150.0-450.0); RED BLOOD COUNT 3.74 X10^6/uL (4.7-6.0); RED CELL DISTRIBUTION WIDTH 15.2 % (11.6-16.5); WHITE BLOOD COUNT 6.3 X10^3/uL (3.6-10.0)
[2017-04-10 05:41] LABS: ALANINE AMINOTRANSFERASE 17 Units/L (12-78); ALBUMIN 2.8 g/dL (3.4-5.0); ALKALINE PHOSPHATASE 48 Units/L (46-116); ASPARTATE AMINO TRANSFERASE 15 Units/L (15-37); BLOOD UREA NITROGEN 15 mg/dL (7-18); CALCIUM 8.8 mg/dL (8.5-10.1); CHLORIDE 108 mmol/L (98-107); COR CA(FOR HYPOALB) 9.8 mg/dL (8.5-10.1); CREATININE 1.17 mg/dL (0.70-1.30); GLUCOSE 103 mg/dL (65-99); SODIUM 141 mmol/L (136-145); TOTAL PROTEIN 6.4 g/dL (6.4-8.2); eGFR BLACK RACES > 60 (>60); eGFR NON BLACK RACES > 60 (>60)
--- NOTE | 2017-04-10 06:26 | RAD ---
HISTORY: Follow up pneumonia Study: Chest one view Comparison: April 09, 2015 Findings: The heart is within normal limits in size. The chery are normal. The previously noted right midlung i nfiltrate has resolved. However there is a new parenchymal density projected over the right hilum. T his is of as yet undetermined etiology. Correlation with upright PA and lateral chest x-ray in the d epartment is recommended for further evaluation. The remainder of the lung monte are clear. No pleu ral effusions are identified. The bony thorax is unremarkable. IMPRESSION: Resolution of the previously noted right midlung infiltrate New abnormal parenchymal density projected over the right hilum which should be further evaluated wi th upright PA and lateral chest film in the department. Reported By:
[2017-04-10 07:14] LABS: ERYTHROCYTE SEDIMENTATION RATE 34 MM/HOUR (0-15)
[2017-04-10] MEDS: DUONEB 0.5 MG/3 MG NEB SCH ×4 (08:37→21:17)
[2017-04-10] MEDS: PULMICORT NEB TX 0.5 MG NEB SCH ×2 (08:37→21:17)
[2017-04-10] MEDS ORDERED: GLUCOPHAGE ONE ×2 (09:44→20:26)
[2017-04-10] MEDS: CYMBALTA PO SCH (09:52)
[2017-04-10] MEDS: COREG TAB 6.25 MG PO SCH ×2 (09:52→20:47)
[2017-04-10] MEDS: LEVAQUIN PREMIX IV 750 MG 750 MG/150 ML BAG IV SCH (09:52)
[2017-04-10] MEDS: ROBITUSSIN DM PO SCH ×4 (09:52→20:47)
[2017-04-10] MEDS: LITHIUM CARBONATE (PLAIN) PO SCH ×2 (09:54→20:47)
[2017-04-10] MEDS: MOBIC TAB 15 MG PO SCH (09:54)
[2017-04-10] MEDS: GLUCOPHAGE PO SCH ×2 (09:54→20:48)
[2017-04-10] MEDS: NORCO 10/325 TAB PO PRN ×2 (09:55→20:48)
[2017-04-10] MEDS: ASPIRIN PO SCH (09:55)
[2017-04-10] MEDS: PriLOSEC PO SCH (09:55)
[2017-04-10] MEDS: PLAVIX PO SCH (09:56)
[2017-04-10] MEDS: NICODERM PATCH 21 MG/24 HR TD SCH (09:56)
[2017-04-10] MEDS: VANCOMYCIN 1 GM PREMIX (ADDVANTAGE) 250 ML IV SCH ×2 (13:12→20:46)
[2017-04-10] MEDS ORDERED: NS 1/2 1000 ML IV 1,000 ML IV ONE (14:59)
[2017-04-10] MEDS ORDERED: NS 250 ML IV 250 ML IV ONE (14:59)
[2017-04-10] MEDS: CRESTOR TAB 10 MG PO SCH (20:47)
[2017-04-10] MEDS: KLONOPIN TAB 1 MG PO SCH (20:48)
[2017-04-10] MEDS: SNACK - Diabetic Appropriate PO SCH (21:50)
[2017-04-11] MEDS ORDERED: NS 1/2 1000 ML IV 1,000 ML IV ONE (05:17)
[2017-04-11] MEDS: ZOSYN VIAL 4.5 GM 4.5 GM in NS 100 ML IV + SPIKE MINIBAG* 100 ML IV SCH ×2 (05:20→14:22)
[2017-04-11] MEDS: NS 1/2 1000 ML IV 1,000 ML IV SCH ×2 (05:24→14:23)
[2017-04-11 05:36] LABS: BASOPHILS % (AUTO) 0.4 % (0.2-1.0); EOSINOPHILS # (AUTO) 0.4 x10^3/uL (0.0-0.2); EOSINOPHILS % (AUTO) 4.8 % (0.9-2.9); HEMATOCRIT 35.9 % (42.0-54.0); HEMOGLOBIN 12.2 g/dL (13.5-18.0); LYMPHOCYTES # (AUTO) 0.9 X10^3/uL (1.3-2.9); LYMPHOCYTES % (AUTO) 10.8 % (21.0-51.0); MEAN CORPUSCULAR HEMOGLOBIN 30.1 pg (27.0-34.0); MEAN CORPUSCULAR VOLUME 88.5 fL (80.0-100.0); MONOCYTES # (AUTO) 0.5 x10^3/uL (0.3-0.8); MONOCYTES % (AUTO) 6.2 % (0.0-13.0); NEUTROPHILS # (AUTO) 6.7 x10^3/uL (2.2-4.8); NEUTROPHILS % (AUTO) 77.8 % (42.0-75.0); PLATELET COUNT 190 X10^3/uL (150.0-450.0); RED BLOOD COUNT 4.06 X10^6/uL (4.7-6.0); RED CELL DISTRIBUTION WIDTH 14.5 % (11.6-16.5); WHITE BLOOD COUNT 8.6 X10^3/uL (3.6-10.0)
[2017-04-11 06:00] LABS: ALANINE AMINOTRANSFERASE 18 Units/L (12-78); ALKALINE PHOSPHATASE 47 Units/L (46-116); ASPARTATE AMINO TRANSFERASE 15 Units/L (15-37); BLOOD UREA NITROGEN 12 mg/dL (7-18); CALCIUM 9.1 mg/dL (8.5-10.1); CARBON DIOXIDE 22.9 mmol/L (21-32); CHLORIDE 107 mmol/L (98-107); COR CA(FOR HYPOALB) 9.9 mg/dL (8.5-10.1); CREATININE 1.18 mg/dL (0.70-1.30); GLUCOSE 100 mg/dL (65-99); SODIUM 139 mmol/L (136-145); TOTAL PROTEIN 6.9 g/dL (6.4-8.2); eGFR BLACK RACES > 60 (>60); eGFR NON BLACK RACES > 60 (>60)
[2017-04-11] MEDS ORDERED: GLUCOPHAGE ONE (07:44)
[2017-04-11] MEDS: ASPIRIN PO SCH (08:20)
[2017-04-11] MEDS: COREG TAB 6.25 MG PO SCH (08:25)
[2017-04-11] MEDS: ROBITUSSIN DM PO SCH ×3 (08:25→16:45)
[2017-04-11] MEDS: VANCOMYCIN 1 GM PREMIX (ADDVANTAGE) 250 ML IV SCH (08:25)
[2017-04-11] MEDS: MOBIC TAB 15 MG PO SCH (08:25)
[2017-04-11] MEDS: GLUCOPHAGE PO SCH (08:25)
[2017-04-11] MEDS: LITHIUM CARBONATE (PLAIN) PO SCH (08:25)
[2017-04-11] MEDS: CYMBALTA PO SCH (08:25)
[2017-04-11] MEDS: DUONEB 0.5 MG/3 MG NEB SCH ×2 (08:44→12:20)
[2017-04-11] MEDS: PULMICORT NEB TX 0.5 MG NEB SCH (08:44)
[2017-04-11] MEDS: PLAVIX PO SCH (08:47)
[2017-04-11] MEDS: NICODERM PATCH 21 MG/24 HR TD SCH (08:47)
[2017-04-11] MEDS: PriLOSEC PO SCH (08:48)
[2017-04-11] MEDS: NORCO 10/325 TAB PO PRN (09:08)
[2017-04-11 12:32] VITALS: BP 105/55
--- NOTE | 2017-04-11 15:53 | RAD ---
History: Productive cough, followup comparison 04/10/2017 Study: PA and lateral chest Findings: The cardiac silhouette and mediastinum appear within normal limits. The previously noted r ight parahilar infiltrate is no longer seen. Chronic interstitial lung changes are noted. Impression: 1. Clearance of the right perihilar infiltrate. 2. No new infiltration is seen. Reported By:
--- NOTE | 2017-04-13 20:56 | PCM.PROG ---
Progress Note - Progress Note for Day of Date: 04/10/17 - Subjective Subjective: Patient is a 56 yo male who was admitted with pneumonia and fever. Patient still noted with some rhonchi , patients sputum culture shows MRSA we are going to discontinue Levaquin and start vancomycin 1gm IV Q12hr. Patient states his vomiting has resolved and is starting to feel a little better. Vital signs this am 97.9, 65, 20, 95%, 111/57. Labs are within normal limits with the exception of RBC 3.74, Hgb 11.3, Hct 33.1, Eos% 4.3, Eos# 0.3, ESR 34, Chloride 108, Glcuose 103, CRP 23.20, Albumin 2.8, Albumin/Globulin Ratio 0.8. Chest xray this am shows interval development since prior examination of abnormal parenchymal density in the left lung base which could represent pneumonia, atelectasis or both, minmimal subsegmental atelectasis right lung base and cardiomegaly without congestive heart failure. - Past Medical Family Social History Past Med/Fam/Surg Hx: No changes since H&P Allergies: Allergies MS Atorvastatin [From Lipitor] Allergy (Verified 04/08/17 19:26) - Review of Systems ROS: No change since H&P - Vital Signs and I&O's Vital Signs: 97.9, 65, 20, 95%, 111/57 - Physical Exam Oriented: Normal Eyes: Normal Ear: Normal Nose: Normal Throat: Normal Respiratory: Rhonchi (Bilateral coarse rhochi) Cardiovascular: Normal : Normal Auscultation: Bowel Sounds: Normal Tenderness: Normal Skin: Normal Musculoskeletal: Normal Psychiatric: Normal Mood Description: Calm Affect: Normal Speech Pattern: Clear, Appropriate - Laboratory and Diagnostics Result Diagrams: 04/11/17 05:00 04/11/17 05:00 Labs: Labs are within normal limits with the exception of RBC 3.74, Hgb 11.3, Hct 33.1 , Eos% 4.3, Eos# 0.3, ESR 34, Chloride 108, Glcuose 103, CRP 23.20, Albumin 2.8 , Albumin/Globulin Ratio 0.8. Radiology Reviewed: Yes - Plan (1) Pneumonia Status: Acute Qualifiers: Pneumonia type: P Aspiration pneumonia type: A Laterality: L Lung location: L Plan: continue with pneumonia protocol including nebs, Vancomycin and Zosyn (2) COPD (chronic obstructive pulmonary disease) Status: Acute Qualifiers: COPD type: C Chronic bronchitis type: C Emphysema type: E Plan: supplemental oxygen, duonebs, budesonide (3) Anxiety Status: Chronic Plan: continue clonazepam and duloxetine (4) Diabetes mellitus, type 2 Status: Chronic Qualifiers: Diabetes mellitus complication status: D Diabetes mellitus complication detail: D Diabetic retinopathy severity: D Proliferative retinopathy type: P Diabetes mellitus macular edema: D Diabetes mellitus half-way insulin use : D Laterality: L Chronic kidney disease stage: C Plan: continue metformin (5) Hyperlipidemia Status: Chronic Qualifiers: Hyperlipidemia type: H Plan: continue crestor
== END 2017-04-11 17:15 | disposition home or self-care (01) | DRG 195 ==
LOC: MED/SURG 15:19
PROVIDERS: ADMIT Internal Medicine; ATTEND Internal Medicine
DX: J18.8 Other pneumonia, unspecified organism (principal); J40 Bronchitis, not specified as acute or chronic; I25.10 Atherosclerotic heart disease of native coronary artery without angina pectoris; I10 Essential (primary) hypertension; I51.7 Cardiomegaly; J44.9 Chronic obstructive pulmonary disease, unspecified; R50.9 Fever, unspecified; F41.8 Other specified anxiety disorders; E11.65 Type 2 diabetes mellitus with hyperglycemia; E78.2 Mixed hyperlipidemia; B95.62 Methicillin resistant Staphylococcus aureus infection as the cause of diseases classified elsewhere
CPT/HCPCS: 36415; 71010; 71020; 80053; 85025; 85652; 86140; 87040; 87070; 87077; 87186; 87205; 94640; 94669; 94760; A4222; S0181; J1956; J2543; J3370; J7620; J7626

== ENCOUNTER 2017-08-30 00:54 | Emergency (ER) | payer OTHER ==
[2017-08-30 01:03] LABS: BLOOD UREA NITROGEN 18 mg/dL (7-18); CALCIUM 8.9 mg/dL (8.5-10.1); CARBON DIOXIDE 25.4 mmol/L (21-32); CHLORIDE 106 mmol/L (98-107); COR NA(FOR HYPERGLY) 141 mmol/L (136-145); CREATININE 1.21 mg/dL (0.70-1.30); SODIUM 141 mmol/L (136-145); TROPONIN I < 0.02 ng/mL (0-1.5); eGFR BLACK RACES > 60 (>60); eGFR NON BLACK RACES > 60 (>60)
[2017-08-30 01:07] VITALS: BP 119/92; BMI 31.8
[2017-08-30 01:07] LABS: ALANINE AMINOTRANSFERASE 20 Units/L (12-78); ALBUMIN 3.6 g/dL (3.4-5.0); ALKALINE PHOSPHATASE 78 Units/L (46-116); ASPARTATE AMINO TRANSFERASE 15 Units/L (15-37); CKMB % 1.7 % (<4); CREATINE KINASE 90 Units/L (39-308); CREATINE KINASE MB 1.5 ng/mL (0-4.0); MAGNESIUM 1.7 mg/dL (1.7-2.9); TOTAL PROTEIN 7.1 g/dL (6.4-8.2)
[2017-08-30] MEDS ORDERED: DUONEB 0.5 MG/3 MG NEB ONE (01:27)
[2017-08-30] MEDS ORDERED: ASPIRIN PO ONE (01:27)
[2017-08-30] MEDS ORDERED: SOLU-Medrol 125 MG VIAL IVP ONE (01:27)
[2017-08-30] MEDS ORDERED: SOLU-Medrol 125 MG VIAL ONE (01:32)
[2017-08-30] MEDS ORDERED: ASPIRIN ONE (01:33)
--- NOTE | 2017-08-30 01:36 | DR.GENAD ---
HPI - PCP Primary Care Physician: Mita STONE - Complaint/Symptoms Chief Complaint Doctors Comments: Patient states when he laid down tonight he could not breathe and he has been having problems breathing for the past three days with cold, cough, wheezing and swelling of his hands. States he has been havig xiphoid chest pain and he is followed by Dr. Butler and when he evaluated him he was told he was doing alright. States he has been having problems with his balance and has been falling. He denies fever, chills or any recent head trauma. States he has been having cramping in his hands and problems getting up when he bends over to check the air in his tire. States she does not know why he has been falling but he has been weak at times. He denies any recent head trauma. Chief Complaint:: TROUBLE BREATHING FOR 3 DAYS, WHEEZING, COUGHING STUFF UP, BALANCE HAS BEEN OFF. BEEN FALLING Self Treatment fo Chief Complaint: NONE - Nurses notes reviewed Nurses Notes Review: Yes - Source History Provided: Patient - Mode of Arrival Mode of Arrival: Ambulatory - Timing Onset of Chief Complaint: 08/27/17 Came on: Gradually - Duration Duration: Constant How lon Duration: Days - Location Location: chest pain with problems breathing - Severity Severity: Moderate - Modifying Factors Worsens:: exertion Improves:: nothing PMH - PMH Past Medical History: Yes Past Medical History: Angina, Arthritis, CHF, COPD, Coronary Artery Disease, CVA , Diabetes, Dyslipidemia, Gout, Hypertension, [place], Sleep Apnea Past Surgical History: Yes Surgical History: Ortho Surgery Past Surgical History Comment: 4 STENTS - Family History History of Family Medical Conditions: Yes Family Medical History: Diabetes Mellitus, ME, Coronary Artery Disease, Heart Failure, Hypertension Family Medical History Comment: CVA - Social History Type of Tobacco Use: Cigarettes How many years tobacco product used: 42 Does any household member use tobacco: No Alcohol Use: None Do you use any recreational Drugs:: No Lives With: Alone Lives Where: Home - infectious screening In the last 2 months have you had wt loss of >10#?: NO Have you had fever, night sweats or hemotysis?: No Have you traveled outside the country in the last 6 months?: No Isolation: Standard ROS - Review of Systems Constitutional: No Symptoms Reported, Weakness, Fatigue. negative: See HPI, Chills, Diaphoresis, Fever, Malaise, Irritable, Loss of Appetite, Other Eyes: No Symptoms Reported. negative: See HPI, Eye Pain, Blurred Vision, Tearing, Discharge, Photophobia, Diplopia, Other ENTM: No Symptoms Reported Respiratoy: Non-Productive Cough, Short of Breath, Wheezing. negative: No Symptoms Reported, See HPI, Productive Cough, Moist Cough, Dry Cough, Hacking Cough, Barking Cough, Brassy Cough, Orthopnea, Stridor, Hemoptysis, Other Cardiovascular: No Symptoms Reported, Chest Pain, Edema. negative: See HPI, Palpitations, Syncope, Cyanosis, Skin Mottling, Other Gastrointestinal/Abdominal: No Symptoms Reported. negative: See HPI, Abdominal Pain, Constipation, Diarrhea, Nausea, Vomiting, Food Intolerance, Other Genitourinary: No Symptoms Reported. negative: See HPI, Discharge, Dysuria, Frequency, Hematuria, Pain, Bleeding, Other Neurological: No Symptoms Reported, Headache, Weakness, Problems Walking. negative: See HPI, Anxiety, Depressed, Emotional Problems, Numbness, Paresthesia , Pre-existing Deficit, Seizure, Tingling, Tremors, Dizziness, Speech Problem, Other Musculoskeletal: No Symptoms Reported Integumentary: No Symptoms Reported. negative: See HPI, Change in Color, Change in Hair/Nails, Dryness, Lesions, Lumps, Rash, Itching, Wound, Bruises, Juandice, Other Hematologic/Lymphatic: No Symptoms Reported Endocrine: No Symptoms Reported. negative: See HPI, Excessive Sweating, Flushing, Intolerance to Cold, Intolerance to Heat, Increased Hunger, Increased Thirst, Increased Urine, Unexplained Weight Gain, Unexplained Weight Loss, Failure to Thrive, Decreased Appetite, Other Psychiatric: No Symptoms Reported. negative: See HPI, Anxiety, Depression, Hallucinations, Excessive crying, Suicidal, Other PE - Vital Signs Vitals: Temperature 98.3 F Pulse Rate 74 Respiratory Rate 28 Blood Pressure [Right Arm] 105/55 Blood Pressure [Left Arm] 163/78 Blood Pressure 119/92 O2 Sat by Pulse Oximetry 97 - General Limitations: No Limitations General Appearance: Alert, In Distress (moderate) - Head Head Exam: Normal Inspection, Atraumatic, Normocephalic - Eyes Eye exam: Normal Appearance, PERRL, EOMI. negative: Scleral Icterus, Conjunctival Injection, Nystagmus, Miosis, Mydrasis, Periorbital Swelling, Periorbital Tenderness, Other - ENT ENT Exam: Normal Exam, Normal Oropharynx, Normal External Ear Exam, Mucous Membranes Moist, TM's Normal Bilaterally External Ear Exam: Normal External Inspection TM/Canal Exam: Bilateral Normal Nose Exam: Normal Nose Exam. negative: Sinus Tenderness, Nasal Deviation, Crepitus, Septal Hematoma, Laceration, Abrasion, Other Mouth Exam: Normal Inspection. negative: Drooling, Trismus, Lip Swelling, Tongue Elevation, Tongue Swelling, Laceration, Other Throat Exam: Normal Inspection. negative: Tonsillar Erythema, Tonsillomegaly, Tonsillar Exudate, R Peritonsillar Mass, L Peritonsillar Mass, Muffled Voice, Other - Neck Neck Exam: Normal Inspection, Full ROM, Trachea Midline. negative: Tenderness, Meningismus, Lymphadenopathy, Thyromegaly, Other - Chest Chest Inspection: Normal Inspection, Symmetric Chest Wall Rise - Respiratory Respiratory Exam: Normal Lung Sounds Bilat Respiratory Exam: Bilateral Wheezing, Bilateral Rhonchi, Bilateral Decreased Breath Sounds, Left Rales, Lower Rales - Cardiovascular Cardiovascular Exam: Regular Rate, Normal Rhythm, Tachycardia, Normal Heart Sounds, Systolic Murmur - Abdominal Exam Abdominal Exam: Normal Inspection, Normal Bowel Sounds, Soft Abdominal Tenderness: negative: RUQ, RLQ, LUQ, LLQ, Epigastrium, Suprapubic, Diffuse, Mild, Moderate, Severe, Other - Extremities Extremities Exam: Normal Inspection, Full ROM, Normal Capillary Refill. negative: Tenderness, Edema, Joint Swelling, Calf Tenderness, Other - Back Back Exam: Normal Inspection, Full ROM. negative: Tenderness, (R) CVA Tenderness, (L) CVA Tenderness, Muscle Spasm, Paraspinal Tenderness, Vertebral Tenderness, Rashes, (R) Sciatic Notch Tenderness, (L) Sciatic Notch Tendern, (R ) Straight Leg Raise, (L) Straight Leg Raise, Other - Neurologic Neurological Exam: Alert, Oriented X3, CN II-XII Intact, Normal Gait, Reflexes Normal - Psychiatric Psychiatric Exam: Normal Affect, Normal Mood. negative: Depressed, Agitated, Anxious, Flat Affect, Manic, Homicidal Ideation, Suicidal Ideation, Other - Skin Skin Exam: Warm, Dry, Intact, Normal Color ROR - Labs Reviewed Laboratory Results Reviewed?: Yes (all labs and x-ray results reviewed and discussed with patient) Result Diagrams: 08/30/17 01:38 EST 08/30/17 01:38 EST Laboratory: WBC 9.5 X10^3/uL (3.6-10.0) 08/30/17 01:38 EST RBC 4.58 X10^6/uL (4.7-6.0) L 08/30/17 01:38 EST Hgb 13.9 g/dL (13.5-18.0) 08/30/17 01:38 EST Hct 40.2 % (42.0-54.0) L 08/30/17 01:38 EST MCV 87.7 fL (80.0-100.0) 08/30/17 01:38 EST MCH 30.2 pg (27.0-34.0) 08/30/17 01:38 EST MCHC 34.5 g/dL (33.0-35.0) 08/30/17 01:38 EST RDW 14.2 % (11.6-16.5) 08/30/17 01:38 EST Plt Count 201 X10^3/uL (150.0-450.0) 08/30/17 01:38 EST MPV 9.0 fL (7.4-11.0) 08/30/17 01:38 EST Neut % 63.3 % (42.0-75.0) 08/30/17 01:38 EST Lymph % 26.5 % (21.0-51.0) 08/30/17 01:38 EST [place] % 6.0 % (0.0-13.0) 08/30/17 01:38 EST Eos % 3.1 % (0.9-2.9) H 08/30/17 01:38 EST Baso % 1.1 % (0.2-1.0) H 08/30/17 01:38 EST Neut # 6.0 x10^3/uL (2.2-4.8) H 08/30/17 01:38 EST Lymph # 2.5 X10^3/uL (1.3-2.9) 08/30/17 01:38 EST [place] # 0.6 x10^3/uL (0.3-0.8) 08/30/17 01:38 EST Eos # 0.3 x10^3/uL (0.0-0.2) H 08/30/17 01:38 EST Baso # 0.1 X10^3/uL (0.0-0.1) 08/30/17 01:38 EST Absolute Nucleated RBC 0.0 /100WBC 08/30/17 01:38 EST INR Target Range - 08/30/17 01:38 EST INR 0.92 (0.8-1.3) 08/30/17 01:38 EST PTT 27.5 SECONDS (22.9-36.5) 08/30/17 01:38 EST PTT Comment - 08/30/17 01:38 EST Sodium 141 mmol/L (136-145) 08/30/17 01:38 EST Corrected Sodium 141 mmol/L (136-145) 08/30/17 01:38 EST Potassium 3.9 mmol/L (3.5-5.1) 08/30/17 01:38 EST Chloride 106 mmol/L (98-107) 08/30/17 01:38 EST Carbon Dioxide 25.4 mmol/L (21-32) 08/30/17 01:38 EST BUN 18 mg/dL (7-18) 08/30/17 01:38 EST Creatinine 1.21 mg/dL (0.70-1.30) 08/30/17 01:38 EST Est GFR (MDRD) Af Amer > 60 (>60) 08/30/17 01:38 EST Est GFR (MDRD) Non-Af > 60 (>60) 08/30/17 01:38 EST Glucose 113 mg/dL (65-99) H 08/30/17 01:38 EST Calcium 8.9 mg/dL (8.5-10.1) 08/30/17 01:38 EST Corrected Calcium TNP 08/30/17 01:38 EST Magnesium 1.7 mg/dL (1.7-2.9) 08/30/17 01:38 EST Total Bilirubin 0.20 mg/dL (0.2-1.0) 08/30/17 01:38 EST AST 15 Units/L (15-37) 08/30/17 01:38 EST ALT 20 Units/L (12-78) 08/30/17 01:38 EST Alkaline Phosphatase 78 Units/L (46-116) 08/30/17 01:38 EST Creatine Kinase 90 Units/L (39-308) 08/30/17 01:38 EST CK-MB (CK-2) 1.5 ng/mL (0-4.0) 08/30/17 01:38 EST CK/CKMB % Calc 1.7 % (<4) 08/30/17 01:38 EST Troponin I < 0.02 ng/mL (0-1.5) 08/30/17 01:38 EST B-Natriuretic Peptide 35.2 pg/mL (0-79) 08/30/17 01:38 EST Total Protein 7.1 g/dL (6.4-8.2) 08/30/17 01:38 EST Albumin 3.6 g/dL (3.4-5.0) 08/30/17 01:38 EST Globulin 3.5 g/dL (2.5-4.5) 08/30/17 01:38 EST Albumin/Globulin Ratio 1.0 Ratio (1.1-2.1) L 08/30/17 01:38 EST - Other Results Comments: CT head: old right ischemic changes; no midline shift. Awaiting official reading due to history of previous CVA but patient refuse to wait for the results of CT head. - XRAY XRAY Interpreted by: Radiologist (CT head: No acute intracranial abnormality), Self (CXR: increased right hilar markings; COPD) - EKG Rate: 72 [place]: Normal Rhythm: NSR Block: RBBB ST: Old, Ant, Infarct - Diagnosis Discharge Problem: COPD exacerbation, Acute bronchitis, Chest pain, COPD (chronic obstructive pulmonary disease) - Discharge Plan Disposition: AGAINST MEDICAL ADVICE Condition: Stable Prescriptions: Levofloxacin [LEVAQUIN TAB 500 MG *] 500 mg PO DAILY #10 tab Methylprednisolone Dosepak 4Mg [MEDROL DOSEPAK (4 mg tab x 21)] 1 dayton PO ONCE # 1 dayton - Follow ups/Referrals Follow ups/Referrals: Manjit Vicente [Primary Care Provider] - 3 days - Instructions Additional Instructions: Patient refused to wait for the CT results and refused second nebulizer treatment or IV antibiotics. States he will see his doctor on Thursday and he has to go home to go to work at 5am.
[2017-08-30 01:50] LABS: BASOPHILS # (AUTO) 0.1 X10^3/uL (0.0-0.1); EOSINOPHILS # (AUTO) 0.3 x10^3/uL (0.0-0.2); LYMPHOCYTES # (AUTO) 2.5 X10^3/uL (1.3-2.9); MEAN CORPUSCULAR HEMOGLOBIN 30.2 pg (27.0-34.0); NEUTROPHILS % (AUTO) 63.3 % (42.0-75.0); WHITE BLOOD COUNT 9.5 X10^3/uL (3.6-10.0)
[2017-08-30] MEDS ORDERED: DUONEB 0.5 MG/3 MG ONE (01:51)
[2017-08-30 01:52] LABS: BASOPHILS % (AUTO) 1.1 % (0.2-1.0); EOSINOPHILS % (AUTO) 3.1 % (0.9-2.9); HEMATOCRIT 40.2 % (42.0-54.0); HEMOGLOBIN 13.9 g/dL (13.5-18.0); LYMPHOCYTES % (AUTO) 26.5 % (21.0-51.0); MEAN CORPUSCULAR HGB CONC 34.5 g/dL (33.0-35.0); MEAN CORPUSCULAR VOLUME 87.7 fL (80.0-100.0); MONOCYTES # (AUTO) 0.6 x10^3/uL (0.3-0.8); PLATELET COUNT 201 X10^3/uL (150.0-450.0); RED BLOOD COUNT 4.58 X10^6/uL (4.7-6.0); RED CELL DISTRIBUTION WIDTH 14.2 % (11.6-16.5)
[2017-08-30 01:54] LABS: B-TYPE NATRIURETIC PEPTIDE 35.2 pg/mL (0-79)
--- NOTE | 2017-08-30 02:00 | CT ---
CT head without contrast Indication: Fall and weakness Technique: Helical CT images of the of the brain were obtained without IV contrast. Reformatted image s in the coronal and sagittal planes were also generated for review. Comparison: 02/21/2017 Findings: There is no intracranial hemorrhage, visible acute infarction, focal or generalized edema, extra-axial collection, hydrocephalus or mass. The visualized paranasal sinuses and mastoid air cells are clear. No acute osseous or soft tissue abnormality is identified. Impression: No acute intracranial abnormality. Reported By:
[2017-08-30] MEDS ORDERED: ROCEPHIN VIAL 1 GM 1 GM in NS 50 ML IV + SPIKE MINIBAG* 50 ML IV ONE (02:03)
--- NOTE | 2017-08-30 02:27 | RAD ---
Chest, one-view Indication: Difficulty breathing, wheezing, coughing Comparison: 04/11/2017 Findings: Heart size is normal for technique. No focal consolidation, effusion or pneumothorax is albert ntified. No acute osseous abnormality is seen. Impression: No acute cardiopulmonary abnormality. Reported By:
== END 2017-08-30 02:08 | disposition left against medical advice (07) ==
LOC: ER 00:54
DX: J20.9 Acute bronchitis, unspecified (principal); J44.1 Chronic obstructive pulmonary disease with (acute) exacerbation; R07.89 Other chest pain; R42 Dizziness and giddiness
CPT/HCPCS: 36415; 70450; 71010; 80053; 82550; 82553; 83735; 83880; 84484; 85025; 85610; 85730; 93005; 93010; 94640; 96365; 96372; 96374; 99283; A4222; J2930; J7620

== ENCOUNTER 2017-08-31 11:28 | Inpatient (IN) | payer OTHER ==
[2017-08-31] MEDS ORDERED: REFLEX: PROVENTIL NEB & PulmiCORT NEB~ NEB SCH (12:15)
[2017-08-31] MEDS ORDERED: DUONEB 0.5 MG/3 MG NEB SCH (12:15)
[2017-08-31] MEDS ORDERED: ACCUNEB 1.25 MG NEBULE IN SCH (13:00)
[2017-08-31] MEDS ORDERED: NS 1/2 1000 ML IV 1,000 ML IV ONE (13:06)
[2017-08-31] MEDS: NS 1/2 1000 ML IV 1,000 ML IV SCH (13:16)
[2017-08-31] MEDS: ROBITUSSIN DM PO SCH ×3 (13:17→20:45)
[2017-08-31] MEDS: LEVAQUIN PREMIX IV 750 MG 750 MG/150 ML BAG IV SCH (13:20)
[2017-08-31 13:42] LABS: BASOPHILS # (AUTO) 0.1 X10^3/uL (0.0-0.1); BASOPHILS % (AUTO) 0.5 % (0.2-1.0); EOSINOPHILS # (AUTO) 0.1 x10^3/uL (0.0-0.2); EOSINOPHILS % (AUTO) 0.8 % (0.9-2.9); HEMATOCRIT 40.5 % (42.0-54.0); HEMOGLOBIN 13.5 g/dL (13.5-18.0); LYMPHOCYTES # (AUTO) 2.9 X10^3/uL (1.3-2.9); LYMPHOCYTES % (AUTO) 25.8 % (21.0-51.0); MEAN CORPUSCULAR HEMOGLOBIN 29.5 pg (27.0-34.0); MEAN CORPUSCULAR HGB CONC 33.3 g/dL (33.0-35.0); MEAN CORPUSCULAR VOLUME 88.8 fL (80.0-100.0); MEAN PLATELET VOLUME 9.1 fL (7.4-11.0); MONOCYTES # (AUTO) 0.5 x10^3/uL (0.3-0.8); MONOCYTES % (AUTO) 4.6 % (0.0-13.0); NEUTROPHILS # (AUTO) 7.7 x10^3/uL (2.2-4.8); NEUTROPHILS % (AUTO) 68.3 % (42.0-75.0); PLATELET COUNT 208 X10^3/uL (150.0-450.0); RED BLOOD COUNT 4.56 X10^6/uL (4.7-6.0); RED CELL DISTRIBUTION WIDTH 14.3 % (11.6-16.5); WHITE BLOOD COUNT 11.2 X10^3/uL (3.6-10.0)
[2017-08-31 13:47] VITALS: BMI 29.1
[2017-08-31 13:54] LABS: ALANINE AMINOTRANSFERASE 17 Units/L (12-78); ALBUMIN 3.5 g/dL (3.4-5.0); ALKALINE PHOSPHATASE 76 Units/L (46-116); ASPARTATE AMINO TRANSFERASE 11 Units/L (15-37); BLOOD UREA NITROGEN 17 mg/dL (7-18); CALCIUM 9.2 mg/dL (8.5-10.1); CARBON DIOXIDE 25.5 mmol/L (21-32); CHLORIDE 107 mmol/L (98-107); COR NA(FOR HYPERGLY) 142 mmol/L (136-145); CREATININE 1.28 mg/dL (0.70-1.30); SODIUM 141 mmol/L (136-145); TOTAL PROTEIN 6.9 g/dL (6.4-8.2); eGFR BLACK RACES > 60 (>60); eGFR NON BLACK RACES > 60 (>60)
[2017-08-31] MEDS ORDERED: SALINE 3% 15 ML NEB TX ONE (13:55)
[2017-08-31] MEDS ORDERED: ZOSYN VIAL 4.5 GM IV ONE (14:17)
[2017-08-31] MEDS ORDERED: NS 100 ML IV 100 ML IV ONE ×2 (14:18→20:32)
[2017-08-31] MEDS: ZOSYN VIAL 4.5 GM 4.5 GM in NS 100 ML IV + SPIKE MINIBAG* 100 ML IV SCH ×2 (14:50→21:38)
--- NOTE | 2017-08-31 16:16 | RAD ---
Examination: Chest, PA and lateral views History: COPD, hypertension and CHF Comparison reference: Portable AP chest 08/30/2017. Findings: Continued normal heart size with essentially clear lungs and pleural spaces. There is no me diastinal or hilar lesion. Impression: Considering technical and projection differences, no change or acute abnormality demonstr ated. Reported By:
[2017-08-31] MEDS: DUONEB 0.5 MG/3 MG NEB SCH ×2 (16:40→20:49)
[2017-08-31] MEDS ORDERED: NITROSTAT SL PRN (19:05)
--- NOTE | 2017-08-31 19:11 | DR.UPDATE ---
H&P Update History and Physical Update: WAS SEEN IN THE OFFICE TODAY. A H&P WAS COMPLETED PRIOR TO ADMISSION. PATIENT HAS BEEN SEEN AND EXAMINED WITH NO CHANGES NOTED TO H&P. Changes noted: NO Yes with the following:
[2017-08-31] MEDS ORDERED: GLUCOPHAGE ONE (20:30)
[2017-08-31] MEDS: KLONOPIN TAB 1 MG PO SCH (20:45)
[2017-08-31] MEDS: GLUCOPHAGE PO SCH (20:45)
[2017-08-31] MEDS: COREG TAB 6.25 MG PO SCH (20:45)
[2017-08-31] MEDS: LITHIUM CARBONATE (PLAIN) PO SCH (20:45)
[2017-08-31] MEDS: TUSSIONEX PENNKINETIC SUSP PO PRN (20:46)
[2017-08-31] MEDS: NORCO 10/325 TAB PO PRN (20:46)
[2017-08-31] MEDS: NEURONTIN CAP 400 MG PO PRN (20:46)
[2017-08-31] MEDS: PULMICORT NEB TX 0.5 MG NEB SCH (20:49)
[2017-08-31] MEDS ORDERED: LIPITOR TAB 40 MG PO SCH (21:00)
[2017-08-31] MEDS ORDERED: PATIENT'S HOME MEDICATION PO SCH (21:00)
[2017-08-31] MEDS: NICOTINE PATCH TD SCH (21:37)
[2017-09-01] MEDS ORDERED: NS 1/2 1000 ML IV 1,000 ML IV ONE ×2 (04:21→18:35)
[2017-09-01] MEDS ORDERED: NS 100 ML IV 100 ML IV ONE ×3 (05:31→20:17)
[2017-09-01] MEDS ORDERED: ZOSYN VIAL 4.5 GM IV ONE ×2 (05:38→12:25)
[2017-09-01] MEDS: NS 1/2 1000 ML IV 1,000 ML IV SCH ×2 (05:49→18:36)
[2017-09-01] MEDS: ZOSYN VIAL 4.5 GM 4.5 GM in NS 100 ML IV + SPIKE MINIBAG* 100 ML IV SCH ×3 (05:50→21:00)
[2017-09-01 06:21] LABS: ALANINE AMINOTRANSFERASE 15 Units/L (12-78); ALBUMIN 2.9 g/dL (3.4-5.0); ALKALINE PHOSPHATASE 67 Units/L (46-116); ASPARTATE AMINO TRANSFERASE 10 Units/L (15-37); BASOPHILS # (AUTO) 0.1 X10^3/uL (0.0-0.1); BASOPHILS % (AUTO) 0.7 % (0.2-1.0); BLOOD UREA NITROGEN 17 mg/dL (7-18); CALCIUM 9.2 mg/dL (8.5-10.1); CARBON DIOXIDE 26.5 mmol/L (21-32); CHLORIDE 109 mmol/L (98-107); COR CA(FOR HYPOALB) 10.1 mg/dL (8.5-10.1); CREATININE 1.17 mg/dL (0.70-1.30); EOSINOPHILS # (AUTO) 0.3 x10^3/uL (0.0-0.2); EOSINOPHILS % (AUTO) 3.9 % (0.9-2.9); HEMATOCRIT 38.6 % (42.0-54.0); LYMPHOCYTES # (AUTO) 2.3 X10^3/uL (1.3-2.9); LYMPHOCYTES % (AUTO) 27.1 % (21.0-51.0); MEAN CORPUSCULAR HEMOGLOBIN 29.9 pg (27.0-34.0); MEAN CORPUSCULAR HGB CONC 33.8 g/dL (33.0-35.0); MEAN CORPUSCULAR VOLUME 88.5 fL (80.0-100.0); MEAN PLATELET VOLUME 9.1 fL (7.4-11.0); MONOCYTES # (AUTO) 0.4 x10^3/uL (0.3-0.8); MONOCYTES % (AUTO) 5.1 % (0.0-13.0); NEUTROPHILS # (AUTO) 5.4 x10^3/uL (2.2-4.8); NEUTROPHILS % (AUTO) 63.2 % (42.0-75.0); PLATELET COUNT 189 X10^3/uL (150.0-450.0); RED BLOOD COUNT 4.36 X10^6/uL (4.7-6.0); RED CELL DISTRIBUTION WIDTH 14.8 % (11.6-16.5); SODIUM 143 mmol/L (136-145); TOTAL PROTEIN 6.2 g/dL (6.4-8.2); WHITE BLOOD COUNT 8.5 X10^3/uL (3.6-10.0); eGFR BLACK RACES > 60 (>60); eGFR NON BLACK RACES > 60 (>60)
[2017-09-01] MEDS ORDERED: GLUCOPHAGE ONE ×2 (08:11→20:20)
[2017-09-01] MEDS: ROBITUSSIN DM PO SCH ×4 (08:28→21:00)
[2017-09-01] MEDS: LEVAQUIN PREMIX IV 750 MG 750 MG/150 ML BAG IV SCH (08:28)
[2017-09-01] MEDS: CHECK PATCH XX SCH ×2 (08:30→21:00)
[2017-09-01] MEDS: NICOTINE PATCH TD SCH (08:30)
[2017-09-01] MEDS: ASPIRIN PO SCH (08:30)
[2017-09-01] MEDS: CYMBALTA PO SCH (08:31)
[2017-09-01] MEDS: GLUCOPHAGE PO SCH ×2 (08:31→21:00)
[2017-09-01] MEDS: LITHIUM CARBONATE (PLAIN) PO SCH ×2 (08:31→21:00)
[2017-09-01] MEDS: PLAVIX PO SCH (08:31)
[2017-09-01] MEDS: PriLOSEC PO SCH (08:31)
[2017-09-01] MEDS: MOBIC TAB 15 MG PO SCH (08:31)
[2017-09-01] MEDS: COREG TAB 6.25 MG PO SCH ×2 (08:32→21:00)
[2017-09-01] MEDS: DUONEB 0.5 MG/3 MG NEB SCH ×4 (09:31→20:03)
[2017-09-01] MEDS: PULMICORT NEB TX 0.5 MG NEB SCH ×2 (09:32→20:03)
[2017-09-01] MEDS: SNACK - Diabetic Appropriate PO SCH ×2 (11:26→20:00)
[2017-09-01] MEDS: NORCO 10/325 TAB PO PRN ×2 (11:28→22:53)
[2017-09-01] MEDS: NEURONTIN CAP 400 MG PO PRN (14:12)
[2017-09-01] MEDS ORDERED: CRESTOR TAB 10 MG PO SCH (21:00)
[2017-09-01] MEDS: TUSSIONEX PENNKINETIC SUSP PO PRN (21:00)
[2017-09-01] MEDS: KLONOPIN TAB 1 MG PO SCH (21:00)
[2017-09-02 05:32] LABS: BASOPHILS # (AUTO) 0.1 X10^3/uL (0.0-0.1); BASOPHILS % (AUTO) 0.9 % (0.2-1.0); EOSINOPHILS # (AUTO) 0.3 x10^3/uL (0.0-0.2); EOSINOPHILS % (AUTO) 4.3 % (0.9-2.9); HEMATOCRIT 39.7 % (42.0-54.0); HEMOGLOBIN 13.4 g/dL (13.5-18.0); LYMPHOCYTES # (AUTO) 2.2 X10^3/uL (1.3-2.9); MEAN CORPUSCULAR HEMOGLOBIN 30.2 pg (27.0-34.0); MEAN CORPUSCULAR HGB CONC 33.8 g/dL (33.0-35.0); MEAN CORPUSCULAR VOLUME 89.3 fL (80.0-100.0); MEAN PLATELET VOLUME 8.7 fL (7.4-11.0); MONOCYTES # (AUTO) 0.5 x10^3/uL (0.3-0.8); MONOCYTES % (AUTO) 6.1 % (0.0-13.0); NEUTROPHILS # (AUTO) 4.9 x10^3/uL (2.2-4.8); NEUTROPHILS % (AUTO) 61.7 % (42.0-75.0); PLATELET COUNT 187 X10^3/uL (150.0-450.0); RED BLOOD COUNT 4.45 X10^6/uL (4.7-6.0); RED CELL DISTRIBUTION WIDTH 14.3 % (11.6-16.5)
[2017-09-02 05:40] LABS: ALANINE AMINOTRANSFERASE 15 Units/L (12-78); ALKALINE PHOSPHATASE 65 Units/L (46-116); ASPARTATE AMINO TRANSFERASE 10 Units/L (15-37); BLOOD UREA NITROGEN 17 mg/dL (7-18); CALCIUM 9.2 mg/dL (8.5-10.1); CARBON DIOXIDE 26.8 mmol/L (21-32); CHLORIDE 108 mmol/L (98-107); CREATININE 1.06 mg/dL (0.70-1.30); SODIUM 142 mmol/L (136-145); TOTAL PROTEIN 6.2 g/dL (6.4-8.2); eGFR BLACK RACES > 60 (>60); eGFR NON BLACK RACES > 60 (>60)
[2017-09-02] MEDS ORDERED: NS 100 ML IV 100 ML IV ONE (06:14)
[2017-09-02] MEDS ORDERED: ZOSYN VIAL 4.5 GM IV ONE (06:18)
[2017-09-02] MEDS: ZOSYN VIAL 4.5 GM 4.5 GM in NS 100 ML IV + SPIKE MINIBAG* 100 ML IV SCH (06:33)
[2017-09-02] MEDS: NS 1/2 1000 ML IV 1,000 ML IV SCH (07:11)
[2017-09-02] MEDS ORDERED: GLUCOPHAGE ONE (08:24)
[2017-09-02] MEDS: NICOTINE PATCH TD SCH (08:28)
[2017-09-02] MEDS: LITHIUM CARBONATE (PLAIN) PO SCH (08:29)
[2017-09-02] MEDS: MOBIC TAB 15 MG PO SCH (08:29)
[2017-09-02] MEDS: ASPIRIN PO SCH (08:29)
[2017-09-02] MEDS: NORCO 10/325 TAB PO PRN ×2 (08:30→12:20)
[2017-09-02] MEDS: PriLOSEC PO SCH (08:30)
[2017-09-02] MEDS: GLUCOPHAGE PO SCH (08:30)
[2017-09-02] MEDS: PLAVIX PO SCH (08:30)
[2017-09-02] MEDS: COREG TAB 6.25 MG PO SCH (08:31)
[2017-09-02] MEDS: LEVAQUIN PREMIX IV 750 MG 750 MG/150 ML BAG IV SCH (08:32)
[2017-09-02] MEDS: ROBITUSSIN DM PO SCH (08:32)
[2017-09-02] MEDS: CYMBALTA PO SCH (08:32)
--- NOTE | 2017-09-02 08:37 | RAD ---
Examination: AP chest History: SOB and cough Comparison reference: 08/31/2017 Findings: Frontal chest projection demonstrates normal heart size with clear lungs and pleural spaces . There is no evidence for developing pneumonia, pneumothorax or pleural fluid. Impression: No definite change or acute abnormality noted. Reported By:
[2017-09-02] MEDS: DUONEB 0.5 MG/3 MG NEB SCH (08:58)
[2017-09-02] MEDS: PULMICORT NEB TX 0.5 MG NEB SCH (08:58)
[2017-09-02] MEDS ORDERED: DIFLUCAN 200 MG IV PREMIX* 200 MG/100 ML BAG IV SCH (09:00)
[2017-09-02] MEDS: CHECK PATCH XX SCH (10:15)
[2017-09-02 10:52] VITALS: BP 139/72
--- NOTE | 2017-09-02 12:29 | PCM.PROG ---
Progress Note - Progress Note for Day of Date: 09/01/17 - Subjective Subjective: WAS ADMITTED FOR COMMUNITY AQUIRED PNEUMONIA. TODAY, HE IS ALERT AND ORIENTED, LYING IN BED ON MORNING ROUNDS. HE CONTINUES WITH COMPLAINTS OF SHORTNESS OF BREATH AND PRODUCTIVE COUGH. ON EXAMINATION, LUNGS ARE NOTED WITH SCATTERED WHEEZING. ABDOMEN IS ROUND, SOFT, AND NON-TENDER WITH NORMAL BOWEL SOUNDS NOTED IN ALL QUADRANTS. HE IS UTILIZING OXYGEN VIA NASAL CANNULA AT 2L/MIN. SINUS RHYTHM IS NOTED ON CERAMICS TEST ENGINEER. HIS VITAL SIGNS THIS MORNING ARE 98.0-56-16-100%-119/55. LABS AND CHEST XRAY WERE OBTAINED. ABNORMAL LAB VALUES INCLUDE THE FOLLOWING: RBC 4.36, HGB 13.0, HCT 38.6, CHLORIDE 109, AST 10, TOTAL PROTEIN 6.2, ALBUMIN 2.9. CHEST XRAY REPORTS NO ACUTE ABNORMALITY NOTED. A SPUTUM CULTURE IS PENDING. PRELIMINARY RESULTS REPORT NORMAL SHARRON AT DAY 2 WITH RARE YEAST. GRAM STAIN REPORTS GROWTH OF MODERATE CHAINS AND FEW GRAM POSITIVE COCCI, MANY WBC, FEW GRAM POSITIVE DIPLOCOCCI. TODAY, WE PLAN TO CONTINUE WITH CURRENT PLAN OF CARE. WE WILL CONTINUE WITH IV ANTIBIOTICS AND BREATHING TX. WE WILL FOLLOW UP WITH AM LABS AND CHEST XRAY AND CONTINUE TO MONITOR PATIENT. - Past Medical Family Social History Past Med/Fam/Surg Hx: No changes since H&P Allergies: Allergies atorvastatin Allergy (Verified 08/31/17 13:54) - Review of Systems ROS: No change since H&P - Vital Signs and I&O's Vital Signs: Temperature 97.8 F Pulse Rate [Apical] 64 Pulse Rate 61 Respiratory Rate 20 Blood Pressure [Right Arm] 139/72 Blood Pressure [Left Arm] 163/78 Blood Pressure 119/92 O2 Sat by Pulse Oximetry 97 Intake and Output: Intake & Output 08/31/17 09/01/17 09/02/17 09/03/17 11:59 11:59 11:59 11:59 Intake Total 1754 1892 Output Total 569 3800 Balance 1204 -1908 - Physical Exam Oriented: Normal Eyes: Normal Ear: Normal Nose: Normal Throat: Normal Respiratory: Right, Left, Generalized, Wheezes Cardiovascular: Normal : Normal Auscultation: Bowel Sounds: Normal Palpation: Normal Tenderness: Normal Skin: Normal Musculoskeletal: Normal Psychiatric: Normal Mood Description: Calm Affect: Normal Speech Pattern: Clear, Appropriate - Laboratory and Diagnostics Result Diagrams: 09/02/17 05:20 09/02/17 05:20 Labs: 08/31/17 13:22 Blood Blood Culture - Preliminary 08/31/17 13:15 Blood Blood Culture - Preliminary 08/31/17 14:42 Sputum - Expectorated Sputum Sputum Culture - Final 08/31/17 14:42 Sputum - Expectorated Sputum - Final Laboratory WBC 8.0 X10^3/uL (3.6-10.0) 09/02/17 05:20 RBC 4.45 X10^6/uL (4.7-6.0) L 09/02/17 05:20 Hgb 13.4 g/dL (13.5-18.0) L 09/02/17 05:20 Hct 39.7 % (42.0-54.0) L 09/02/17 05:20 MCV 89.3 fL (80.0-100.0) 09/02/17 05:20 MCH 30.2 pg (27.0-34.0) 09/02/17 05:20 MCHC 33.8 g/dL (33.0-35.0) 09/02/17 05:20 RDW 14.3 % (11.6-16.5) 09/02/17 05:20 Plt Count 187 X10^3/uL (150.0-450.0) 09/02/17 05:20 MPV 8.7 fL (7.4-11.0) 09/02/17 05:20 Neut % 61.7 % (42.0-75.0) 09/02/17 05:20 Lymph % 27.0 % (21.0-51.0) 09/02/17 05:20 [place] % 6.1 % (0.0-13.0) 09/02/17 05:20 Eos % 4.3 % (0.9-2.9) H 09/02/17 05:20 Baso % 0.9 % (0.2-1.0) 09/02/17 05:20 Neut # 4.9 x10^3/uL (2.2-4.8) H 09/02/17 05:20 Lymph # 2.2 X10^3/uL (1.3-2.9) 09/02/17 05:20 [place] # 0.5 x10^3/uL (0.3-0.8) 09/02/17 05:20 Eos # 0.3 x10^3/uL (0.0-0.2) H 09/02/17 05:20 Baso # 0.1 X10^3/uL (0.0-0.1) 09/02/17 05:20 Absolute Nucleated RBC 0.0 /100WBC 09/02/17 05:20 Sodium 142 mmol/L (136-145) 09/02/17 05:20 Corrected Sodium TNP 09/02/17 05:20 Potassium 4.0 mmol/L (3.5-5.1) 09/02/17 05:20 Chloride 108 mmol/L (98-107) H 09/02/17 05:20 Carbon Dioxide 26.8 mmol/L (21-32) 09/02/17 05:20 BUN 17 mg/dL (7-18) 09/02/17 05:20 Creatinine 1.06 mg/dL (0.70-1.30) 09/02/17 05:20 Est GFR (MDRD) Af Amer > 60 (>60) 09/02/17 05:20 Est GFR (MDRD) Non-Af > 60 (>60) 09/02/17 05:20 Glucose 94 mg/dL (65-99) 09/02/17 05:20 Calcium 9.2 mg/dL (8.5-10.1) 09/02/17 05:20 Corrected Calcium 10.0 mg/dL (8.5-10.1) 09/02/17 05:20 Total Bilirubin 0.30 mg/dL (0.2-1.0) 09/02/17 05:20 AST 10 Units/L (15-37) L 09/02/17 05:20 ALT 15 Units/L (12-78) 09/02/17 05:20 Alkaline Phosphatase 65 Units/L (46-116) 09/02/17 05:20 Total Protein 6.2 g/dL (6.4-8.2) L 09/02/17 05:20 Albumin 3.0 g/dL (3.4-5.0) L 09/02/17 05:20 Globulin 3.2 g/dL (2.5-4.5) 09/02/17 05:20 Albumin/Globulin Ratio 0.9 Ratio (1.1-2.1) L 09/02/17 05:20 - Plan (1) Community acquired pneumonia Status: Acute Qualifiers: Laterality: unspecified laterality Qualified Code(s): J18.9 - Pneumonia, unspecified organism Plan: LEVAQUIN 750MG IV DAILY, FORTAZ 1GM IV DAILY, DUONEBS, PULMICORT [place], SUPPLEMENTAL OXYGEN, TUSSIONEX 5ML BID PRN, ROBUTUSSIN QID, CONTINUE TO MONITOR (2) COPD exacerbation Status: Acute Plan: CONTINUE DUONEBS QID, CONTINUE PULMICORT BID, CONTINUE SUPPLEMENTAL OXYGEN , CONTINUE TO MONITOR (3) Depression Status: Chronic Qualifiers: Depression Type: major depressive disorder Major depression recurrence: recurrent Active/Remission status: remission status unspecified Qualified Code(s): F33.9 - Major depressive disorder, recurrent, unspecified Plan: CONTINUE LITHIUM, CONTINUE CYMBALTA, CONTINUE TO MONITOR (4) CHF (congestive heart failure) Status: Chronic Qualifiers: Congestive heart failure type: systolic Congestive heart failure chronicity : acute on chronic Qualified Code(s): I50.23 - Acute on chronic systolic ( congestive) heart failure Plan: CONTINUE COREG 3.125 PO BID, CONTINUE TO MONITOR (5) GERD (gastroesophageal reflux disease) Status: Chronic Qualifiers: Esophagitis presence: esophagitis presence not specified Qualified Code(s) : K21.9 - Gastro-esophageal reflux disease without esophagitis Plan: CONTINUE PRILOSEC, CONTINUE TO MONITOR (6) History of NM (myocardial infarction) Status: Chronic Plan: CONTINUE PLAVIX, CONTINUE TO MONITOR (7) Hyperlipidemia Status: Chronic Qualifiers: Hyperlipidemia type: mixed hyperlipidemia Plan: CONTINUE CRESTOR, CONTINUE TO MONITOR (8) Diabetic neuropathy Status: Acute Qualifiers: Diabetes mellitus type: due to underlying condition Plan: CONTINUE NEURONTIN, CONTINUE TO MONITOR
== END 2017-09-02 12:50 | disposition home or self-care (01) | DRG 193 ==
LOC: ICU 11:28 → UNDOADMIN 11:28 → ICU 12:35
PROVIDERS: ADMIT Internal Medicine; ATTEND Internal Medicine
DX: J18.8 Other pneumonia, unspecified organism (principal); J44.1 Chronic obstructive pulmonary disease with (acute) exacerbation; I50.23 Acute on chronic systolic (congestive) heart failure; R06.02 Shortness of breath; I25.10 Atherosclerotic heart disease of native coronary artery without angina pectoris; I10 Essential (primary) hypertension; K21.9 Gastro-esophageal reflux disease without esophagitis; E78.2 Mixed hyperlipidemia; I25.2 Old myocardial infarction; E11.40 Type 2 diabetes mellitus with diabetic neuropathy, unspecified; Z66 Do not resuscitate; R26.89 Other abnormalities of gait and mobility
CPT/HCPCS: 36415; 71010; 71020; 80053; 85025; 87040; 87070; 87205; 94640; A4222; J1450; J1956; J2543; J7620; J7626

== ENCOUNTER 2017-09-22 13:11 | Emergency (ER) | payer OTHER ==
[2017-09-22 13:26] VITALS: BMI 30.3
[2017-09-22] MEDS ORDERED: NITROSTAT SL PRN (13:54)
--- NOTE | 2017-09-22 13:56 | DR.GENAD ---
HPI - PCP Primary Care Physician: ISIDRO - HPI Comment HPI Comment: He was with the [facility] this morning, to be seen about a? pneumonia. While there he started having c/p and he was sent to the E.D. here. There was no SOB, he felt nauseous, no diaphoresis. The pain was into his right arm. - Complaint/Symptoms Chief Complaint:: PT C/O CHEST PAIN. PT WAS SEEN BY PCP THIS AM ABOUT HIS PNEUMONIA AND STARTED HAVING CHEST PAIN IN THE OFFICE. - Source History Provided: Patient - Mode of Arrival Mode of Arrival: Ambulatory - Timing Onset of Chief Complaint: 09/22/17 PMH - PMH Past Medical History: Yes Past Medical History: Angina, Arthritis, CHF, COPD, Coronary Artery Disease, CVA , Diabetes, Dyslipidemia, Gout, Hypertension, [place], Sleep Apnea Past Surgical History: Yes Surgical History: Angioplasty/Stents, Cholecystectomy - Family History History of Family Medical Conditions: Yes Family Medical History: Diabetes Mellitus, [place], Hypertension - Social History Does any household member use tobacco: No Alcohol Use: None Do you use any recreational Drugs:: No Lives With: Family Lives Where: Home - infectious screening In the last 2 months have you had wt loss of >10#?: NO Have you had fever, night sweats or hemotysis?: No Have you traveled outside the country in the last 6 months?: No Isolation: Standard ROS - Review of Systems Constitutional: No Symptoms Reported Eyes: No Symptoms Reported ENTM: No Symptoms Reported Respiratoy: No Symptoms Reported Cardiovascular: Chest Pain Genitourinary: No Symptoms Reported Neurological: No Symptoms Reported Musculoskeletal: No Symptoms Reported Integumentary: No Symptoms Reported Hematologic/Lymphatic: No Symptoms Reported Endocrine: No Symptoms Reported Psychiatric: No Symptoms Reported All Other Systems: Reviewed and Negative PE - Vital Signs Vitals: Temperature 99.1 F Pulse Rate [Apical] 64 Pulse Rate [Left] 59 Pulse Rate 62 Respiratory Rate 18 Blood Pressure [Right Arm] 139/83 Blood Pressure [Left Arm] 163/78 Blood Pressure 135/89 O2 Sat by Pulse Oximetry 97 - General Limitations: No Limitations General Appearance: Alert, In No Apparent Distress - Head Head Exam: Normal Inspection - Eyes Eye exam: Normal Appearance - ENT ENT Exam: Normal Exam - Neck Neck Exam: Normal Inspection, Full ROM - Chest Chest Inspection: Normal Inspection - Respiratory Respiratory Exam: Normal Lung Sounds Bilat - Cardiovascular Cardiovascular Exam: Regular Rate, Normal Rhythm - Abdominal Exam Abdominal Exam: Normal Inspection, Normal Bowel Sounds, Soft - Extremities Extremities Exam: Normal Inspection - Back Back Exam: Normal Inspection - Neurologic Neurological Exam: Alert, Oriented X3, CN II-XII Intact - Psychiatric Psychiatric Exam: Normal Affect, Normal Mood - Skin Skin Exam: Warm, Dry, Intact, Normal Color Course - Reevaluation 1st: Improved 2nd: Resolved - Education/Counseling Education/Counseling: Patient, Family Educated On: Treatment, Diagnosis, Needs for Follow Up, Other (I informed him of normal lab and CXR results and of plan to repeat cardiac panel at about 4 hrs. from 1st draw. He states that he thought he was here to be admitted for his pneumonia. The CXR was normal. He states then he was not going to wait for a repeat test. He is ready to go home. ) ROR - Labs Reviewed Result Diagrams: 09/22/17 14:02 09/22/17 14:02 Laboratory: 09/22/17 14:36 Sputum - Expectorated Sputum - Final WBC 16.3 X10^3/uL (3.6-10.0) H 09/22/17 14:02 RBC 4.72 X10^6/uL (4.7-6.0) 09/22/17 14:02 Hgb 14.1 g/dL (13.5-18.0) 09/22/17 14:02 Hct 42.0 % (42.0-54.0) 09/22/17 14:02 MCV 89.0 fL (80.0-100.0) 09/22/17 14:02 MCH 29.9 pg (27.0-34.0) 09/22/17 14:02 MCHC 33.6 g/dL (33.0-35.0) 09/22/17 14:02 RDW 14.7 % (11.6-16.5) 09/22/17 14:02 Plt Count 287 X10^3/uL (150.0-450.0) 09/22/17 14:02 MPV 9.0 fL (7.4-11.0) 09/22/17 14:02 Neut % 87.2 % (42.0-75.0) H 09/22/17 14:02 Lymph % 9.2 % (21.0-51.0) L 09/22/17 14:02 [place] % 3.1 % (0.0-13.0) 09/22/17 14:02 Eos % 0.1 % (0.9-2.9) L 09/22/17 14:02 Baso % 0.4 % (0.2-1.0) 09/22/17 14:02 Neut # 14.2 x10^3/uL (2.2-4.8) H 09/22/17 14:02 Lymph # 1.5 X10^3/uL (1.3-2.9) 09/22/17 14:02 [place] # 0.5 x10^3/uL (0.3-0.8) 09/22/17 14:02 Eos # 0.0 x10^3/uL (0.0-0.2) 09/22/17 14:02 Baso # 0.1 X10^3/uL (0.0-0.1) 09/22/17 14:02 Absolute Nucleated RBC 0.0 /100WBC 09/22/17 14:02 INR Target Range - 09/22/17 14:02 INR 1.00 (0.8-1.3) 09/22/17 14:02 PTT 25.8 SECONDS (22.9-36.5) 09/22/17 14:02 PTT Comment - 09/22/17 14:02 Sodium 137 mmol/L (136-145) 09/22/17 14:02 Corrected Sodium 138 mmol/L (136-145) 09/22/17 14:02 Potassium 4.0 mmol/L (3.5-5.1) 09/22/17 14:02 Chloride 104 mmol/L (98-107) 09/22/17 14:02 Carbon Dioxide 20.1 mmol/L (21-32) L 09/22/17 14:02 BUN 19 mg/dL (7-18) H 09/22/17 14:02 Creatinine 1.30 mg/dL (0.70-1.30) 09/22/17 14:02 Est GFR (MDRD) Af Amer > 60 (>60) 09/22/17 14:02 Est GFR (MDRD) Non-Af > 60 (>60) 09/22/17 14:02 Glucose 122 mg/dL (65-99) H 09/22/17 14:02 Calcium 9.4 mg/dL (8.5-10.1) 09/22/17 14:02 Corrected Calcium TNP 09/22/17 14:02 Magnesium 1.5 mg/dL (1.7-2.9) L 09/22/17 14:02 Total Bilirubin 0.40 mg/dL (0.2-1.0) 09/22/17 14:02 AST 9 Units/L (15-37) L 09/22/17 14:02 ALT 14 Units/L (12-78) 09/22/17 14:02 Alkaline Phosphatase 67 Units/L (46-116) 09/22/17 14:02 Creatine Kinase 25 Units/L (39-308) L 09/22/17 14:02 CK-MB (CK-2) < 1.0 ng/mL (0-4.0) 09/22/17 14:02 CK/CKMB % Calc 4.0 % (<4) 09/22/17 14:02 Troponin I 0.03 ng/mL (0-1.5) 09/22/17 14:02 Total Protein 7.0 g/dL (6.4-8.2) 09/22/17 14:02 Albumin 3.8 g/dL (3.4-5.0) 09/22/17 14:02 Globulin 3.2 g/dL (2.5-4.5) 09/22/17 14:02 Albumin/Globulin Ratio 1.2 Ratio (1.1-2.1) 09/22/17 14:02 - XRAY XRAY Interpreted by: Radiologist (CXR: no acute process.) - EKG Rate: 60 [place]: Normal Rhythm: NSR Hypertrophy: None (Q waves in leads- V1 and V2, Inverted Ts in V1 to V4.) - Diagnosis Discharge Problem: Chest pain - Discharge Plan Disposition: 01 HOME, SELF-CARE Condition: Stable - Follow ups/Referrals Follow ups/Referrals: Manjit Vicente [Primary Care Provider] - 3 days - Instructions
[2017-09-22] MEDS ORDERED: DUONEB 0.5 MG/3 MG ONE ×2 (13:57→16:20)
[2017-09-22] MEDS ORDERED: DUONEB 0.5 MG/3 MG NEB ONE (14:00)
[2017-09-22 14:14] LABS: BASOPHILS # (AUTO) 0.1 X10^3/uL (0.0-0.1); BASOPHILS % (AUTO) 0.4 % (0.2-1.0); EOSINOPHILS % (AUTO) 0.1 % (0.9-2.9); HEMOGLOBIN 14.1 g/dL (13.5-18.0); LYMPHOCYTES # (AUTO) 1.5 X10^3/uL (1.3-2.9); LYMPHOCYTES % (AUTO) 9.2 % (21.0-51.0); MEAN CORPUSCULAR HEMOGLOBIN 29.9 pg (27.0-34.0); MEAN CORPUSCULAR HGB CONC 33.6 g/dL (33.0-35.0); MONOCYTES # (AUTO) 0.5 x10^3/uL (0.3-0.8); MONOCYTES % (AUTO) 3.1 % (0.0-13.0); NEUTROPHILS # (AUTO) 14.2 x10^3/uL (2.2-4.8); NEUTROPHILS % (AUTO) 87.2 % (42.0-75.0); PLATELET COUNT 287 X10^3/uL (150.0-450.0); RED BLOOD COUNT 4.72 X10^6/uL (4.7-6.0); RED CELL DISTRIBUTION WIDTH 14.7 % (11.6-16.5); WHITE BLOOD COUNT 16.3 X10^3/uL (3.6-10.0)
--- NOTE | 2017-09-22 14:21 | RAD ---
Examination: PA and lateral chest History: Pneumonia, cough and chest pain Comparison reference: 09/02/2017 Findings: Continued normal heart size with clear lungs and pleural spaces. Impression: No change; no acute disease demonstrated. Reported By:
[2017-09-22 14:36] LABS: ALANINE AMINOTRANSFERASE 14 Units/L (12-78); ALBUMIN 3.8 g/dL (3.4-5.0); ALKALINE PHOSPHATASE 67 Units/L (46-116); ASPARTATE AMINO TRANSFERASE 9 Units/L (15-37); BLOOD UREA NITROGEN 19 mg/dL (7-18); CALCIUM 9.4 mg/dL (8.5-10.1); CARBON DIOXIDE 20.1 mmol/L (21-32); CHLORIDE 104 mmol/L (98-107); COR NA(FOR HYPERGLY) 138 mmol/L (136-145); CREATINE KINASE 25 Units/L (39-308); CREATINE KINASE MB < 1.0 ng/mL (0-4.0); MAGNESIUM 1.5 mg/dL (1.7-2.9); SODIUM 137 mmol/L (136-145); TROPONIN I 0.03 ng/mL (0-1.5); eGFR BLACK RACES > 60 (>60); eGFR NON BLACK RACES > 60 (>60)
[2017-09-22] MEDS ORDERED: DUONEB 0.5 MG/3 MG NEB SCH (17:00)
[2017-09-22 17:01] VITALS: BP 139/83
== END 2017-09-22 17:23 | disposition home or self-care (01) ==
LOC: ER 13:19
DX: R07.89 Other chest pain (principal)
CPT/HCPCS: 36415; 71020; 80053; 82550; 82553; 83735; 84484; 85025; 85610; 85730; 87040; 87070; 87205; 93005; 93010; 94640; 96365; 99283; A4222; J7620

== ENCOUNTER → 2017-11-02 | Outpatient (CLI) | payer OTHER ==
--- NOTE | 2017-11-02 10:36 | CT ---
HISTORY: Altered mental status, right-sided weakness Study: CT head without contrast Comparison: 08/30/2017 Technique: Multiple axial images were obtained from the skullbase to the vertex without the administration of IV contrast. Reformatted coronal and sagittal planes were produced as well. Findings: Imaging of the brain demonstrates no intracranial hemorrhage, mass effect, or midline shift. No extra -axial fluid collection is identified. There is CT evidence to suggest acute or early subacute infarc t. The ventricles are symmetric and nondilated. The cisterns are patent. The bony structures are inta ct. IMPRESSION: 1. Unremarkable CT of the brain without contrast Reported By:
== END | disposition home or self-care (01) | DRG 93 ==
LOC: RAD 09:41
PROVIDERS: ATTEND Internal Medicine
DX: R26.89 Other abnormalities of gait and mobility (principal); R41.82 Altered mental status, unspecified; R53.1 Weakness
CPT/HCPCS: 70450

== ENCOUNTER 2019-02-25 09:30 | Observation (INO) ==
[2019-02-25 09:38] VITALS: BMI 30.3
--- NOTE | 2019-02-25 10:00 | RAD ---
HISTORY: Chest pain. Study: Portable chest. Comparison: Chest x-ray dated July 28, 2018. Findings: The trachea is midline. The cardiac silhouette is unremarkable. Cardiac stent is again seen overlying the left heart. No obvious focal consolidation, pleural effusion, or pneumothorax. The bony thorax is unremarkable. IMPRESSION: No acute cardiopulmonary disease. Reported By:
--- NOTE | 2019-02-25 10:13 | DR.CP ---
HPI Time Seen Time Seen by Provider: 02/25/19 09:53 PCP Primary Care Physician: JACQUES NELSON Complaint Chief Complaint Doctor Comments: Patient presents with complaint of chest pain for a few weeks. The pain is very frequent and the pain level "I am so use to them" I can not give a number. This has been going for several months (3) associated with dyspnea. His vital signs are stable in no acute distress. Chief Complaint:: PT. STATES HE SEEN JACQUES NELSON, IN THE OFFICE YESTERDAY AND HAD LAB WORK DONE. SHE CALLED HIM THIS MORNING AND TOLD HIM TO COME TO THE ER FOR EVALUATION DUE TO AN ELEVATED TROPONIN. PT. STATES HE HAS BEEN HAVING CHEST PAIN AND SHORTNESS OF BREATH FOR A WEEK OR 2. HE DESCRIBES IT PRESSURE LIKE. Source History Provided: Patient Mode of Arrival Mode of Arrival: Ambulatory Timing Onset of Chief Complaint: 02/18/19 Severity Severity: Mild Associated Signs and Symptoms Associated Signs and Symptoms: Shortness of Breath PMH PMH Past Medical History: Yes Past Medical History: Coronary Artery Disease, Diabetes, Dyslipidemia, Hypertension and [place] Past Surgical History: Yes Surgical History: Angioplasty/Stents Family History History of Family Medical Conditions: Yes Family Medical History: [place] and Coronary Artery Disease Social History Does patient currently use any type of tobacco product: Yes Have you used tobacco products in the last 12 months: Yes Type of Tobacco Use: Cigarettes Does any household member use tobacco: No Alcohol Use: None Do you use any recreational Drugs:: No Lives With: Family Lives Where: Home infectious screening In the last 2 months have you had wt loss of >10#?: NO Have you had fever, night sweats or hemotysis?: No Have you traveled outside the country in the last 6 months?: No Isolation: Standard ROS Review of Systems Constitutional: No Symptoms Reported Respiratoy: No Symptoms Reported Musculoskeletal: Chest wall All Other Systems: Reviewed and Negative PE Vitals Vitals: Temperature 98.2 F Pulse Rate [Apical] 62 Pulse Rate 69 Respiratory Rate 14 Blood Pressure [Right Arm] 122/70 Blood Pressure [Left Arm] 163/78 Blood Pressure 142/87 O2 Sat by Pulse Oximetry 98 General Limitations: No Limitations General Appearance: Alert and In No Apparent Distress Head Head Exam: Normal Inspection, Atraumatic and Normocephalic Eyes Eye exam: Normal Appearance, PERRL and EOMI ENT ENT Exam: Normal Exam and Normal Oropharynx Chest Chest Inspection: Normal Inspection and Symmetric Chest Wall Rise Respiratory Respiratory Exam: Normal Lung Sounds Bilat and Prolonged Expiratory Phase; negative Chest Wall Tenderness Respiratory Exam: Bilateral: Clear to Auscultation Cardiovascular Cardiovascular Exam: Regular Rate and Normal Rhythm Pulse: Normal and Radial Abdominal Exam Abdominal Exam: Normal Inspection, Normal Bowel Sounds and Soft Extremities Extremities Exam: Normal Inspection and Full ROM Back Back Exam: Normal Inspection and Full ROM Neurologic Neurological Exam: Alert, Oriented X3 and CN II-XII Intact Psychiatric Psychiatric Exam: Normal Affect Skin Skin Exam: Warm, Dry, Intact and Normal Color MDM Differential Diagnosis Differential Diagnosis: Angina, Chest Wall Pain, Pericarditis and Pulmonary Embolus COURSE Reevaluation 1st: Improved Consultation Called: 11:45 Call Returned: 11:50 Consultation Comments: Patient was authorized for admission for chest pain protocol ROR Labs Reviewed Laboratory Results Reviewed?: Yes Result Diagrams: 02/25/19 09:52 02/25/19 09:52 Laboratory: WBC 6.4 X10^3/uL (3.6-10.0) 02/25/19 09:52 RBC 4.40 X10^6/uL (4.7-6.0) L 02/25/19 09:52 Hgb 13.6 g/dL (13.5-18.0) 02/25/19 09:52 Hct 40.3 % (42.0-54.0) L 02/25/19 09:52 MCV 91.5 fL (80.0-100.0) 02/25/19 09:52 MCH 30.9 pg (27.0-34.0) 02/25/19 09:52 MCHC 33.8 g/dL (33.0-35.0) 02/25/19 09:52 RDW 14.1 % (11.6-16.5) 02/25/19 09:52 Plt Count 208 X10^3/uL (150.0-450.0) 02/25/19 09:52 MPV 8.7 fL (7.4-11.0) 02/25/19 09:52 Neut % (Auto) 50.8 % (42.0-75.0) 02/25/19 09:52 Lymph % (Auto) 36.0 % (21.0-51.0) 02/25/19 09:52 [place] % (Auto) 8.7 % (0.0-13.0) 02/25/19 09:52 Eos % (Auto) 3.7 % (0.9-2.9) H 02/25/19 09:52 Baso % (Auto) 0.8 % (0.2-1.0) 02/25/19 09:52 Neut # (Auto) 3.3 x10^3/uL (2.2-4.8) 02/25/19 09:52 Lymph # (Auto) 2.3 X10^3/uL (1.3-2.9) 02/25/19 09:52 [place] # (Auto) 0.6 x10^3/uL (0.3-0.8) 02/25/19 09:52 Eos # (Auto) 0.2 x10^3/uL (0.0-0.2) 02/25/19 09:52 Baso # (Auto) 0.1 X10^3/uL (0.0-0.1) 02/25/19 09:52 Absolute Nucleated RBC 0.0 /100WBC 02/25/19 09:52 INR Target Range - 02/25/19 09:52 INR 0.90 (0.8-1.3) 02/25/19 09:52 APTT 27.1 SECONDS (22.9-36.5) 02/25/19 09:52 PTT Comment - 02/25/19 09:52 D-Dimer 500 ng/mL (0-400) H* 02/25/19 09:52 Sodium 143 mmol/L (136-145) 02/25/19 09:52 Corrected Sodium 145 mmol/L (136-145) 02/25/19 09:52 Potassium 3.9 mmol/L (3.5-5.1) 02/25/19 09:52 Chloride 106 mmol/L (98-107) 02/25/19 09:52 Carbon Dioxide 24.8 mmol/L (21-32) 02/25/19 09:52 BUN 13 mg/dL (7-18) 02/25/19 09:52 Creatinine 1.06 mg/dL (0.70-1.30) 02/25/19 09:52 Est GFR (MDRD) Af Amer > 60 (>60) 02/25/19 09:52 Est GFR (MDRD) Non-Af > 60 (>60) 02/25/19 09:52 Glucose 171 mg/dL (65-99) H 02/25/19 09:52 Calcium 9.1 mg/dL (8.5-10.1) 02/25/19 09:52 Corrected Calcium TNP 02/25/19 09:52 Total Bilirubin 0.30 mg/dL (0.2-1.0) 02/25/19 09:52 AST 14 Units/L (15-37) L 02/25/19 09:52 ALT 16 Units/L (12-78) 02/25/19 09:52 Alkaline Phosphatase 75 Units/L (46-116) 02/25/19 09:52 Creatine Kinase 83 Units/L (39-308) 02/25/19 09:52 CK-MB (CK-2) 1.8 ng/mL (0-4.0) 02/25/19 09:52 CK/CKMB % Calc 2.2 % (<4) 02/25/19 09:52 Troponin I 0.29 ng/mL (0-1.5) 02/25/19 09:52 Total Protein 6.5 g/dL (6.4-8.2) 02/25/19 09:52 Albumin 3.4 g/dL (3.4-5.0) 02/25/19 09:52 Globulin 3.1 g/dL (2.5-4.5) 02/25/19 09:52 Albumin/Globulin Ratio 1.1 Ratio (1.1-2.1) 02/25/19 09:52 Other Results Comments: No acute cardiopulmonary disease CTA: Chest-The mediastinum does not demonstrate significant pathological lymphadenopathy. There is no pericardial effusion observed. Cardiac stent placement is noted. The thoracic aorta is normal in its contour without evidence for aneurysmal dilatation. No definite filling defects are appreciated within the lst or 2nd order branches of the pulmonary arterial system. Emphysematous changes are demonstrated bi laterally. Otherwise no CT evidence of focal consolidation.pneumothorax or pleural effusion is identified. Degenerative changes of the visualized spine are noted. XRAY XRAY Interpreted by: Radiologist Diagnosis Discharge Problem: Chest pain Qualifiers: Chest pain type: unspecified Qualified Code(s): R07.9 - Chest pain, unspecified ADDITIONAL NOTES Additional Notes Additional Notes: Patient admitted to Dr. Montoya service
[2019-02-25 10:16] LABS: BASOPHILS # (AUTO) 0.1 X10^3/uL (0.0-0.1); BASOPHILS % (AUTO) 0.8 % (0.2-1.0); EOSINOPHILS # (AUTO) 0.2 x10^3/uL (0.0-0.2); EOSINOPHILS % (AUTO) 3.7 % (0.9-2.9); HEMATOCRIT 40.3 % (42.0-54.0); HEMOGLOBIN 13.6 g/dL (13.5-18.0); LYMPHOCYTES # (AUTO) 2.3 X10^3/uL (1.3-2.9); MEAN CORPUSCULAR HEMOGLOBIN 30.9 pg (27.0-34.0); MEAN CORPUSCULAR HGB CONC 33.8 g/dL (33.0-35.0); MEAN CORPUSCULAR VOLUME 91.5 fL (80.0-100.0); MEAN PLATELET VOLUME 8.7 fL (7.4-11.0); MONOCYTES # (AUTO) 0.6 x10^3/uL (0.3-0.8); MONOCYTES % (AUTO) 8.7 % (0.0-13.0); NEUTROPHILS # (AUTO) 3.3 x10^3/uL (2.2-4.8); NEUTROPHILS % (AUTO) 50.8 % (42.0-75.0); PLATELET COUNT 208 X10^3/uL (150.0-450.0); RED CELL DISTRIBUTION WIDTH 14.1 % (11.6-16.5); WHITE BLOOD COUNT 6.4 X10^3/uL (3.6-10.0)
[2019-02-25 10:28] LABS: BLOOD UREA NITROGEN 13 mg/dL (7-18); CALCIUM 9.1 mg/dL (8.5-10.1); CARBON DIOXIDE 24.8 mmol/L (21-32); CHLORIDE 106 mmol/L (98-107); COR NA(FOR HYPERGLY) 145 mmol/L (136-145); CREATININE 1.06 mg/dL (0.70-1.30); SODIUM 143 mmol/L (136-145); TROPONIN I 0.29 ng/mL (0-1.5); eGFR NON BLACK RACES > 60 (>60)
[2019-02-25 10:33] LABS: ALANINE AMINOTRANSFERASE 16 Units/L (12-78); ALBUMIN 3.4 g/dL (3.4-5.0); ALKALINE PHOSPHATASE 75 Units/L (46-116); ASPARTATE AMINO TRANSFERASE 14 Units/L (15-37); CKMB % 2.2 % (<4); CREATINE KINASE 83 Units/L (39-308); CREATINE KINASE MB 1.8 ng/mL (0-4.0); TOTAL PROTEIN 6.5 g/dL (6.4-8.2)
--- NOTE | 2019-02-25 12:25 | CT ---
HISTORY: Elevated D-dimer Study: CT chest with contrast Comparison: None Technique: Multiple axial images of the chest were obtained from the thoracic inlet to the upper abdomen with the administration of IV contrast. Coronal and sagittal three-dimensional reformatted MIP images were also submitted utilizing CTA protocol. Dose reduction techniques including automated exposure control (AEC) and adjustment of mA and kV were utilized. Findings: The mediastinum does not demonstrate significant pathological lymphadenopathy. There is no pericardial effusion observed. Cardiac stent placement is noted. The thoracic aorta is normal in its contour without evidence for aneurysmal dilatation. No definite filling defects are appreciated within the 1st or 2nd order branches of the pulmonary arterial system. Emphysematous changes are demonstrated bilaterally. Otherwise no CT evidence of focal consolidation, pneumothorax, or pleural effusion is identified. Degenerative changes of the visualized spine are noted. IMPRESSION: No CT evidence of pulmonary embolism is appreciated. Emphysematous changes. Reported By:
[2019-02-25] MEDS ORDERED: MORPHINE SULFATE INJ 2 MG INJ IVP PRN (12:53)
[2019-02-25] MEDS ORDERED: NS 1000 ML 1,000 ML IV SCH (13:00)
[2019-02-25] MEDS ORDERED: NICOTINE PATCH ONE (13:23)
[2019-02-25] MEDS ORDERED: PREVNAR 13 IM ONE (13:48)
[2019-02-25] MEDS ORDERED: HumuLIN R SUBCUT PRN (13:58)
[2019-02-25] MEDS ORDERED: NICOTINE PATCH TD SCH (14:00)
[2019-02-25] MEDS ORDERED: LITHIUM CARBONATE (PLAIN) ONE (14:02)
[2019-02-25] MEDS ORDERED: NORVASC TAB 5 MG ONE (14:02)
[2019-02-25] MEDS ORDERED: ZESTRIL TAB 5 MG ONE (14:02)
[2019-02-25] MEDS ORDERED: PLAVIX ONE (14:02)
[2019-02-25] MEDS ORDERED: XARELTO ONE (14:03)
[2019-02-25] MEDS ORDERED: COREG TAB 6.25 MG ONE (14:03)
[2019-02-25] MEDS ORDERED: PriLOSEC ONE (14:03)
[2019-02-25] MEDS ORDERED: NEURONTIN CAP 400 MG ONE (14:03)
[2019-02-25] MEDS ORDERED: CYMBALTA ONE (14:03)
[2019-02-25] MEDS ORDERED: MORPHINE SULFATE INJ 2 MG INJ ONE (14:08)
[2019-02-25] MEDS: PLAVIX PO SCH (14:14)
[2019-02-25] MEDS: COREG TAB 6.25 MG PO SCH ×2 (14:14→20:40)
[2019-02-25] MEDS: NORVASC TAB 5 MG PO SCH (14:15)
[2019-02-25] MEDS: MORPHINE SULFATE INJ 2 MG INJ IVP PRN ×2 (14:16→19:04)
[2019-02-25] MEDS: ZESTRIL TAB 5 MG PO SCH (14:17)
[2019-02-25] MEDS: NEURONTIN CAP 400 MG PO SCH ×2 (14:17→20:41)
[2019-02-25] MEDS: PriLOSEC PO SCH (14:17)
[2019-02-25] MEDS: CYMBALTA PO SCH (14:18)
[2019-02-25] MEDS ORDERED: PNEUMOVAX 23 IM ONE (15:57)
[2019-02-25 16:12] LABS: CKMB % 2.1 % (<4); CREATINE KINASE MB 1.4 ng/mL (0-4.0); TROPONIN I 0.28 ng/mL (0-1.5)
[2019-02-25 18:03] LABS: BILIRUBIN,URINE NEGATIVE (NEGATIVE); BLOOD/HEMOGLOBIN,URINE 1+ (NEGATIVE); GLUCOSE, URINE NEGATIVE (NEGATIVE); KETONES,URINE NEGATIVE (NEGATIVE); LEUKOCYTE ESTERASE ,URINE NEGATIVE (NEGATIVE); NITRITES,URINE NEGATIVE (NEGATIVE); PROTEIN,URINE NEGATIVE (NEGATIVE); UROBILINOGEN,URINE NORMAL (NORMAL)
[2019-02-25 18:26] LABS: APPEARANCE,URINE CLEAR (CLEAR); BACTERIA,URINE NEGATIVE /HPF (NEGATIVE); COLOR,URINE YELLOW (YELLOW); RBC,URINE 0-2 /HPF (NONE SEEN); SQUAMOUS EPITHELIAL CELL,UR RARE /HPF (NEGATIVE)
[2019-02-25] MEDS ORDERED: ZOFRAN INJ 4 MG VIAL IVP PRN (19:21)
[2019-02-25] MEDS ORDERED: ZOFRAN INJ 4 MG VIAL ONE (19:23)
[2019-02-25] MEDS: ATIVAN TAB 1 MG PO SCH (20:39)
[2019-02-25] MEDS: LITHIUM CARBONATE (PLAIN) PO SCH (20:41)
[2019-02-25] MEDS: SNACK - Diabetic Appropriate PO SCH (20:42)
[2019-02-25] MEDS ORDERED: COREG TAB 6.25 MG PO SCH (21:00)
[2019-02-25] MEDS ORDERED: REGLAN INJ 10 MG VIAL IVP PRN (21:27)
[2019-02-25] MEDS ORDERED: MAALOX or MYLANTA PO PRN (21:28)
[2019-02-25] MEDS ORDERED: REGLAN INJ 10 MG VIAL ONE (21:30)
[2019-02-25] MEDS ORDERED: MAALOX or MYLANTA ONE (21:30)
[2019-02-25 22:18] LABS: CKMB % 1.8 % (<4); CREATINE KINASE MB 1.1 ng/mL (0-4.0); TROPONIN I 0.24 ng/mL (0-1.5)
[2019-02-26] MEDS: MORPHINE SULFATE INJ 2 MG INJ IVP PRN ×5 (00:50→23:15)
[2019-02-26 05:26] LABS: BASOPHILS % (AUTO) 0.6 % (0.2-1.0); EOSINOPHILS # (AUTO) 0.3 x10^3/uL (0.0-0.2); EOSINOPHILS % (AUTO) 3.5 % (0.9-2.9); HEMATOCRIT 40.2 % (42.0-54.0); HEMOGLOBIN 13.3 g/dL (13.5-18.0); LYMPHOCYTES # (AUTO) 2.3 X10^3/uL (1.3-2.9); LYMPHOCYTES % (AUTO) 32.4 % (21.0-51.0); MEAN CORPUSCULAR HEMOGLOBIN 30.6 pg (27.0-34.0); MEAN CORPUSCULAR VOLUME 92.9 fL (80.0-100.0); MONOCYTES # (AUTO) 0.5 x10^3/uL (0.3-0.8); MONOCYTES % (AUTO) 7.5 % (0.0-13.0); PLATELET COUNT 222 X10^3/uL (150.0-450.0); RED BLOOD COUNT 4.33 X10^6/uL (4.7-6.0); RED CELL DISTRIBUTION WIDTH 13.9 % (11.6-16.5); WHITE BLOOD COUNT 7.1 X10^3/uL (3.6-10.0)
[2019-02-26 05:37] LABS: ALANINE AMINOTRANSFERASE 16 Units/L (12-78); ALBUMIN 3.2 g/dL (3.4-5.0); ALKALINE PHOSPHATASE 65 Units/L (46-116); ASPARTATE AMINO TRANSFERASE 14 Units/L (15-37); BLOOD UREA NITROGEN 13 mg/dL (7-18); CALCIUM 8.9 mg/dL (8.5-10.1); CARBON DIOXIDE 27.2 mmol/L (21-32); CHLORIDE 106 mmol/L (98-107); CHOL/HDL RATIO 7.5 (0.0-5.0); CHOLESTEROL 202 mg/dL (0-200); COR CA(FOR HYPOALB) 9.5 mg/dL (8.5-10.1); COR NA(FOR HYPERGLY) 141 mmol/L (136-145); CREATININE 1.01 mg/dL (0.70-1.30); HDL CHOLESTEROL 27 mg/dL (40-60); MAGNESIUM 1.6 mg/dL (1.7-2.9); SODIUM 141 mmol/L (136-145); TOTAL PROTEIN 6.2 g/dL (6.4-8.2); TRIGLYCERIDES 266 mg/dL (0-150); eGFR NON BLACK RACES > 60 (>60)
[2019-02-26] MEDS ORDERED: XARELTO PO SCH ×2 (09:00→21:00)
[2019-02-26] MEDS: PriLOSEC PO SCH (09:52)
[2019-02-26] MEDS: NICOTINE PATCH TD SCH (09:52)
[2019-02-26] MEDS: NORVASC TAB 5 MG PO SCH (09:53)
[2019-02-26] MEDS: COREG TAB 6.25 MG PO SCH ×2 (09:53→20:50)
[2019-02-26] MEDS: LITHIUM CARBONATE (PLAIN) PO SCH ×2 (09:53→20:48)
[2019-02-26] MEDS: NEURONTIN CAP 400 MG PO SCH ×2 (09:53→20:49)
[2019-02-26] MEDS: PLAVIX PO SCH (09:54)
[2019-02-26] MEDS: ZESTRIL TAB 5 MG PO SCH (09:54)
--- NOTE | 2019-02-26 10:22 | DR.H&P ---
H&P - History & Physical for Day of: H&P Date: 02/25/19 - Chief Complaint Chief Complaint: CHEST PAIN, SOB - History of Present Illness History of Present Illness: IS A 58 YEAR OLD PATIENT OF OURS WHO PRESENTED TO THE ER WITH COMPLAINTS OF CHEST PAIN AND SHORNTESS OF BREATH. HE WAS SEEN IN THE OFFICE YESTERDAY. OUTPATIENT LABS REVEALED AN ELEVATED TROPONIN. HE REPORTS THAT SYMPTOMS HAVE BEEN PRESENT FOR ONE TO TWO WEEKS. HE DESCRIBES PAIN PRESSURE LIKE. HE HAS A HISTORY OF STENT PLACEMENT. HE REPORTS RECENTLY BEING TOLD THAT HE HAD A BLOOD CLOT AT THE BASE OF HIS HEART FOR WHICH HE IS ON XARELTO. ON ARRIVAL, VITALS WERE 98.2-69-18-98%-142/87. LABS WERE OBTAINED. ABNORMAL LAB VALUES INCLUDE THE FOLLOWING: RBC 4.40, HCT 40.3, D-DIMER 500, GLUCOSE 171, AST 14. CARDIAC ENZYMES WITHIN NORMAL LIMITS. EKG REVEALED SINUS RHYTHM WITH HR 68. CHEST XRAY REVEALED: NO ACUTE CARDIOPULMONARY DISEASE. A CHEST CTA WAS OBTAINED AND REVEALED: NO CT EVIDENCE OF PULMONARY EMBOLISM APPRECIATED. EMPHYSEMATOUS CHANGES. HE WAS ADMITTED FOR FURTHER EVALUATION AND TREATMENT OF CHEST PAIN, RULE OUT ACUTE [place]. HE WAS PLACED ON TELEMETRY. WE PLAN TO FOLLOW UP WITH SERIAL CARDIAC ENZYMES AND EKGS. - Past Medical History Past Medical History: [place], Coronary Artery Disease, Hypertension, Dyslipidemia, Diabetes - Past Surgical History Surgical History: Angioplasty/Stents, Ortho Surgery - Family History Family Medical History: Diabetes Mellitus, [place], Coronary Artery Disease - Social History Does patient currently use any type of tobacco product: Yes Have you used tobacco products in the last 12 months: Yes Type of Tobacco Use: Cigarettes Does any household member use tobacco: Yes Alcohol Use: None Drug Use: None - Medications Home Medications: atorvastatin Allergy (Verified 02/25/19 09:38) CONTINUE taking the following medications RX: lisinopril 5 mg PO DAILY 02/25/19 [History] RX: lorazepam 2 mg PO HS 02/25/19 [History] - Review of Systems Constitutional: No Symptoms Reported Eyes: No Symptoms Reported ENT: No Symptoms Reported Respiratory: See HPI, Shortness of Breath. denies: Cough Cardiovascular: Chest Pain, See HPI Gastrointestinal: No Symptoms Reported Genitourinary: No Symptoms Reported Musculoskeletal: No Symptoms Reported Skin: No Symptoms Reported Neurological: No Symptoms Reported - Physical Exam Vital Signs: Temperature 98 F Pulse Rate [Right Brachial] 58 Pulse Rate [Apical] 60 Pulse Rate 69 Respiratory Rate 20 Blood Pressure [Right Arm] 117/60 Blood Pressure [Left Arm] 163/78 Blood Pressure 142/87 O2 Sat by Pulse Oximetry 97 Oriented: Normal Eyes: Normal Ear: Normal Nose: Normal Throat: Normal Respiratory: Diminished Throughout Cardiovascular: Normal : Normal Auscultation: Bowel Sounds: Normal Palpation: Normal Tenderness: Normal Skin: Normal Musculoskeletal: Normal Psychiatric: Normal Mood Description: Calm Affect: Normal Speech Pattern: Clear - Assessment/Plan (1) Chest pain, rule out acute myocardial infarction Status: Acute Plan: TELEMETRY, SUPPLEMENTAL OXYGEN, SERIAL CARDIAC ENZYMES AND EKGS, CONTINUE TO MONITOR - Allergies Allergies/Adverse Reactions: Allergies Allergy/AdvReac Type Severity Reaction Status Date / Time atorvastatin Allergy Verified 02/25/19 09:38
[2019-02-26] MEDS: CYMBALTA PO SCH (10:40)
[2019-02-26] MEDS ORDERED: POTASSIUM CHLORIDE LIQ 20 MEQ UDC PO PRN (19:22)
[2019-02-26] MEDS ORDERED: K-RIDER 10 MEQ/NS 100 ML 10 MEQ/100 ML BAG IV PRN (19:22)
[2019-02-26] MEDS ORDERED: POTASSIUM CHL 60 MEQ/NS 0.45% 500 ML IV PRN (19:22)
[2019-02-26] MEDS ORDERED: MICRO K EXTEN CAP 10 MEQ PO PRN (19:22)
[2019-02-26] MEDS ORDERED: K-DUR TAB 20 MEQ PO PRN (19:22)
[2019-02-26] MEDS ORDERED: KLOR-CON PO PRN (19:22)
[2019-02-26] MEDS ORDERED: POTASSIUM CHL 40 MEQ/NS 0.45% 500 ML IV PRN (19:22)
[2019-02-26] MEDS: ATIVAN TAB 1 MG PO SCH (20:48)
[2019-02-26] MEDS: SNACK - Diabetic Appropriate PO SCH (21:00)
[2019-02-26] MEDS ORDERED: NS 250 ML IV 250 ML ONE (22:02)
[2019-02-27] MEDS: MAGNESIUM SULFATE 1 GRAM/100 mL PREMIX 1 GM/100 ML BAG IV PRN ×2 (01:44)
[2019-02-27] MEDS: NORCO 10/325 TAB PO PRN ×2 (02:23→08:53)
[2019-02-27] MEDS: MORPHINE SULFATE INJ 2 MG INJ IVP PRN (05:30)
[2019-02-27 06:00] LABS: BASOPHILS # (AUTO) 0.1 X10^3/uL (0.0-0.1); BASOPHILS % (AUTO) 0.6 % (0.2-1.0); EOSINOPHILS # (AUTO) 0.3 x10^3/uL (0.0-0.2); EOSINOPHILS % (AUTO) 3.4 % (0.9-2.9); HEMATOCRIT 42.1 % (42.0-54.0); HEMOGLOBIN 14.2 g/dL (13.5-18.0); LYMPHOCYTES # (AUTO) 2.7 X10^3/uL (1.3-2.9); LYMPHOCYTES % (AUTO) 30.5 % (21.0-51.0); MEAN CORPUSCULAR HGB CONC 33.8 g/dL (33.0-35.0); MEAN CORPUSCULAR VOLUME 91.9 fL (80.0-100.0); MEAN PLATELET VOLUME 8.7 fL (7.4-11.0); MONOCYTES # (AUTO) 0.6 x10^3/uL (0.3-0.8); MONOCYTES % (AUTO) 6.4 % (0.0-13.0); NEUTROPHILS # (AUTO) 5.2 x10^3/uL (2.2-4.8); NEUTROPHILS % (AUTO) 59.1 % (42.0-75.0); PLATELET COUNT 239 X10^3/uL (150.0-450.0); RED BLOOD COUNT 4.58 X10^6/uL (4.7-6.0); RED CELL DISTRIBUTION WIDTH 14.1 % (11.6-16.5); WHITE BLOOD COUNT 8.8 X10^3/uL (3.6-10.0)
[2019-02-27 06:24] LABS: ALANINE AMINOTRANSFERASE 18 Units/L (12-78); ALBUMIN 3.6 g/dL (3.4-5.0); ALKALINE PHOSPHATASE 70 Units/L (46-116); ASPARTATE AMINO TRANSFERASE 15 Units/L (15-37); BLOOD UREA NITROGEN 13 mg/dL (7-18); CALCIUM 9.1 mg/dL (8.5-10.1); CARBON DIOXIDE 24.9 mmol/L (21-32); CHLORIDE 103 mmol/L (98-107); COR NA(FOR HYPERGLY) 139 mmol/L (136-145); CREATININE 1.07 mg/dL (0.70-1.30); MAGNESIUM 2.4 mg/dL (1.7-2.9); SODIUM 138 mmol/L (136-145); eGFR NON BLACK RACES > 60 (>60)
[2019-02-27] MEDS: CYMBALTA PO SCH (08:52)
[2019-02-27] MEDS: LITHIUM CARBONATE (PLAIN) PO SCH (08:53)
[2019-02-27] MEDS: COREG TAB 6.25 MG PO SCH (08:53)
[2019-02-27] MEDS: NEURONTIN CAP 400 MG PO SCH (08:53)
[2019-02-27] MEDS: NORVASC TAB 5 MG PO SCH (08:53)
[2019-02-27] MEDS: ZESTRIL TAB 5 MG PO SCH (08:54)
[2019-02-27] MEDS: PriLOSEC PO SCH (08:54)
[2019-02-27] MEDS: PLAVIX PO SCH (08:55)
[2019-02-27 09:26] VITALS: BP 130/60
[2019-02-27] MEDS: NICOTINE PATCH TD SCH (09:35)
--- NOTE | 2019-02-27 15:47 | PCM.PROG ---
Progress Note - Progress Note for Day of Date of Exam: 02/26/19 - Subjective Subjective: WAS ADMITTED FOR CHEST PAIN, RULE OUT ACUTE AL. TODAY, HE IS ALERT AND ORIENTED. LYING IN BED ON MORNING ROUNDS. HE CONTINUES WITH INTERMITTENT PAIN THIS MORNING, BUT REPORTS SLIGHT IMPROVEMENT IN SYMPTOMS. ON EXAMINATION, HEART IS REGULAR IN RATE AND RHYTHM. BILATERAL LUNGS ARE NOTED WITH DIMINISHED LUNG SOUNDS THROUGHOUT. ABDOMEN IS ROUND, SOFT, AND NON-TENDER WITH NORMAL BOWEL SOUNDS NOTED IN ALL QUADRANTS. HIS VITALS THIS MORNING ARE [id number]-117/60. LABS WERE OBTAINED. ABNORMAL LAB VALUES INCLUDE THE FOLLOWING: RBC 4.33, HGB 13.3, HCT 40.2, GLUCOSE 115, MAGNESIUM 1.6, AST 14, TOTAL PROTEIN 6.2, ALBUMIN 3.2, TRIGLYCERIDES 266, CHOLESTEROL 202, LDL 122, HDL 27. CARDIAC ENZYMES HAVE BEEN WITHIN NORMAL LIMITS. NO CHANGES NOTED TO EKGs. WE WILL CONTINUE TO MONITOR HIM ON TELEMETRY FOR CHEST PAIN AND SHORTNESS OF BREATH TODAY. WE PLAN TO FOLLOW UP WITH AM LABS. - Past Medical Family Social History Past Med/Fam/Surg Hx: No changes since H&P Allergies: Allergies atorvastatin Allergy (Verified 02/25/19 09:38) - Review of Systems ROS: No change since H&P - Vital Signs and I&O's Vital Signs: Temperature 97.9 F Pulse Rate [Right Brachial] 57 Pulse Rate [Apical] 60 Pulse Rate 69 Respiratory Rate 18 Blood Pressure [Right Arm] 130/60 Blood Pressure [Left Arm] 163/78 Blood Pressure 142/87 O2 Sat by Pulse Oximetry 97 Intake and Output: Intake & Output 02/25/19 02/26/19 02/27/19 02/28/19 11:59 11:59 11:59 11:59 Intake Total 630 / 630 1120 / 1120 Balance 630 / 630 1120 / 1120 - Physical Exam Oriented: Normal Eyes: Normal Ear: Normal Nose: Normal Throat: Normal Cardiovascular: Normal : Normal Auscultation: Bowel Sounds: Normal Tenderness: Normal Skin: Normal Musculoskeletal: Normal Psychiatric: Normal Mood Description: Calm Affect: Normal Speech Pattern: Clear - Laboratory and Diagnostics Result Diagrams: 02/27/19 05:01 02/27/19 05:01 Labs: Laboratory WBC 8.8 X10^3/uL (3.6-10.0) 02/27/19 05:01 RBC 4.58 X10^6/uL (4.7-6.0) L 02/27/19 05:01 Hgb 14.2 g/dL (13.5-18.0) 02/27/19 05:01 Hct 42.1 % (42.0-54.0) 02/27/19 05:01 MCV 91.9 fL (80.0-100.0) 02/27/19 05:01 MCH 31.0 pg (27.0-34.0) 02/27/19 05:01 MCHC 33.8 g/dL (33.0-35.0) 02/27/19 05:01 RDW 14.1 % (11.6-16.5) 02/27/19 05:01 Plt Count 239 X10^3/uL (150.0-450.0) 02/27/19 05:01 MPV 8.7 fL (7.4-11.0) 02/27/19 05:01 Neut % (Auto) 59.1 % (42.0-75.0) 02/27/19 05:01 Lymph % (Auto) 30.5 % (21.0-51.0) 02/27/19 05:01 [place] % (Auto) 6.4 % (0.0-13.0) 02/27/19 05:01 Eos % (Auto) 3.4 % (0.9-2.9) H 02/27/19 05:01 Baso % (Auto) 0.6 % (0.2-1.0) 02/27/19 05:01 Neut # (Auto) 5.2 x10^3/uL (2.2-4.8) H 02/27/19 05:01 Lymph # (Auto) 2.7 X10^3/uL (1.3-2.9) 02/27/19 05:01 [place] # (Auto) 0.6 x10^3/uL (0.3-0.8) 02/27/19 05:01 Eos # (Auto) 0.3 x10^3/uL (0.0-0.2) H 02/27/19 05:01 Baso # (Auto) 0.1 X10^3/uL (0.0-0.1) 02/27/19 05:01 Absolute Nucleated RBC 0.0 /100WBC 02/27/19 05:01 INR Target Range - 02/26/19 04:55 INR 1.22 (0.8-1.3) 02/26/19 04:55 APTT 32.8 SECONDS (22.9-36.5) 02/26/19 04:55 PTT Comment - 02/26/19 04:55 D-Dimer 500 ng/mL (0-400) H* 02/25/19 09:52 Sodium 138 mmol/L (136-145) 02/27/19 05:01 Corrected Sodium 139 mmol/L (136-145) 02/27/19 05:01 Potassium 4.2 mmol/L (3.5-5.1) 02/27/19 05:01 Chloride 103 mmol/L (98-107) 02/27/19 05:01 Carbon Dioxide 24.9 mmol/L (21-32) 02/27/19 05:01 BUN 13 mg/dL (7-18) 02/27/19 05:01 Creatinine 1.07 mg/dL (0.70-1.30) 02/27/19 05:01 Est GFR (MDRD) Af Amer > 60 (>60) 02/27/19 05:01 Est GFR (MDRD) Non-Af > 60 (>60) 02/27/19 05:01 Glucose 121 mg/dL (65-99) H 02/27/19 05:01 Calcium 9.1 mg/dL (8.5-10.1) 02/27/19 05:01 Corrected Calcium TNP 02/27/19 05:01 Magnesium 2.4 mg/dL (1.7-2.9) 02/27/19 05:01 Total Bilirubin 0.40 mg/dL (0.2-1.0) 02/27/19 05:01 AST 15 Units/L (15-37) 02/27/19 05:01 ALT 18 Units/L (12-78) 02/27/19 05:01 Alkaline Phosphatase 70 Units/L (46-116) 02/27/19 05:01 Creatine Kinase 60 Units/L (39-308) 02/25/19 21:41 CK-MB (CK-2) 1.1 ng/mL (0-4.0) 02/25/19 21:41 CK/CKMB % Calc 1.8 % (<4) 02/25/19 21:41 Troponin I 0.24 ng/mL (0-1.5) 02/25/19 21:41 Total Protein 7.0 g/dL (6.4-8.2) 02/27/19 05:01 Albumin 3.6 g/dL (3.4-5.0) 02/27/19 05:01 Globulin 3.4 g/dL (2.5-4.5) 02/27/19 05:01 Albumin/Globulin Ratio 1.1 Ratio (1.1-2.1) 02/27/19 05:01 Triglycerides 266 mg/dL (0-150) H 02/26/19 04:55 Cholesterol 202 mg/dL (0-200) H 02/26/19 04:55 LDL Cholesterol, Calc 122 mg/dL (0-100) H 02/26/19 04:55 HDL Cholesterol 27 mg/dL (40-60) L 02/26/19 04:55 Cholesterol/HDL Ratio 7.5 (0.0-5.0) H 02/26/19 04:55 Specimen Type Clean catch urine 02/25/19 17:45 Urine Color Yellow (YELLOW) 02/25/19 17:45 Urine Appearance Clear (CLEAR) 02/25/19 17:45 Urine pH 6.0 (5.0 - 8.0) 02/25/19 17:45 Ur Specific [place] 1.015 (1.000-1.030) 02/25/19 17:45 Urine Protein Negative (NEGATIVE) 02/25/19 17:45 Urine Glucose (UA) Negative (NEGATIVE) 02/25/19 17:45 Urine Ketones Negative (NEGATIVE) 02/25/19 17:45 Urine Occult Blood 1+ (NEGATIVE) 02/25/19 17:45 Urine Nitrite Negative (NEGATIVE) 02/25/19 17:45 Urine Bilirubin Negative (NEGATIVE) 02/25/19 17:45 Urine Urobilinogen Normal (NORMAL) 02/25/19 17:45 Ur Leukocyte Esterase Negative (NEGATIVE) 02/25/19 17:45 Urine RBC 0-2 /HPF (NONE SEEN) 02/25/19 17:45 Urine WBC None seen /HPF (NONE SEEN) 02/25/19 17:45 Ur Squamous Epith Cells Rare /HPF (NEGATIVE) 02/25/19 17:45 Urine Bacteria Negative /HPF (NEGATIVE) 02/25/19 17:45 Ur Culture Indicated? No/not indicated 02/25/19 17:45 - Plan (1) Chest pain, rule out acute myocardial infarction Status: Acute Plan: TELEMETRY, SUPPLEMENTAL OXYGEN, SERIAL CARDIAC ENZYMES AND EKGS, CONTINUE TO MONITOR
== END 2019-02-27 09:30 | disposition home or self-care (01) ==
LOC: ER 09:34 → MED/SURG 09:34
PROVIDERS: ADMIT Internal Medicine; ATTEND Internal Medicine
DX: R06.02 Shortness of breath; E11.65 Type 2 diabetes mellitus with hyperglycemia; R94.31 Abnormal electrocardiogram [ECG] [EKG]; R07.89 Other chest pain; J43.8 Other emphysema; Z79.899 Other long term (current) drug therapy; I10 Essential (primary) hypertension; E78.2 Mixed hyperlipidemia; Z23 Encounter for immunization; I25.10 Atherosclerotic heart disease of native coronary artery without angina pectoris
CPT/HCPCS: 36415; 71010; 71045; 71275; 80053; 80061; 81001; 82550; 82553; 83735; 84484; 85025; 85378; 85610; 85730; 93005; 94760; 96365; 96374; 99284; A4216; A4222; G0378; J2270; J2405; J2765; J3475; J7050

== ENCOUNTER 2021-03-04 16:13 | Inpatient (IN) ==
--- NOTE | 2021-03-04 16:55 | DR.EXTPAIN ---
HPI Time seen Time Seen by Provider: 03/04/21 16:25 PCP Primary Care Physician: kathleen Complaint/Symptoms Chief Complaint Doctor Comments: 60 y/o male reported to the ED for swelling in his LEFT leg with pain and numbness x 1 week. Pt stated that he had a cardiac cath one week ago and had one stent placed. Pt stated that he reported the swelling to his doctor prior to the cardiac cath but still went on with the cath. Pt stated that today the symptoms were worse so his PCP told him to go to the ED. Pt stated that his PCP placed him on Xarelto after his procedure last week. Pt has a hx of an [place] and CVA. Pt denied any CP, SOB, n/v, fever, sy ncope, dizziness, visual disturbances, and loc. Chief Complaint:: pain to the left leg from posterior thigh down. had heartcath last thursday in [place] with placement of a cardiac stent. complains of pain since with swelling describing pain as like knife sharp in nature with tingling. noted to be more swollen than the right and having more redness. limited ambulation COVID-19 Coronavirus risk:travel/contact w/high risk person: No Has patient experienced Coronavirus symptoms: No Source History Provided: Patient Mode of arrival Mode of Arrival: Wheelchair Timing Onset of Chief Complaint: 02/26/21 PMH PMH Past Medical History: Yes Past Medical History: Coronary Artery Disease, Diabetes, Dyslipidemia, Hypertension and [place] Past Surgical History: Yes Surgical History: Angioplasty/Stents and Ortho Surgery Family History History of Family Medical Conditions: Yes Family Medical History: Diabetes Mellitus, [place] and Coronary Artery Disease Social History Do you use any recreational Drugs:: No Lives With: Family Lives Where: Home Travel Risk Coronavirus risk:travel/contact w/high risk person: No Has patient experienced Coronavirus symptoms: No Infectious screening In the last 2 months have you had wt loss of >10#?: NO Have you had fever, night sweats or hemotysis?: No Have you traveled outside the country in the last 6 months?: No Isolation: Standard ROS Review of Systems Constitutional: No Symptoms Reported Eyes: No Symptoms Reported ENTM: No Symptoms Reported Respiratoy: No Symptoms Reported Cardiovascular: Other (Pain, numbness, and discoloration in the LEFT LE. ) Gastrointestinal/Abdominal: No Symptoms Reported Genitourinary: No Symptoms Reported Neurological: No Symptoms Reported Musculoskeletal: No Symptoms Reported Integumentary: No Symptoms Reported Hematologic/Lymphatic: No Symptoms Reported Endocrine: No Symptoms Reported Psychiatric: No Symptoms Reported All Other Systems: Reviewed and Negative PE Vital Signs Vitals: Temperature 98.6 F Pulse Rate 69 Respiratory Rate 20 Blood Pressure [Right Arm] 130/60 Blood Pressure [Left Arm] 163/78 Blood Pressure 127/71 O2 Sat by Pulse Oximetry 100 General Limitations: No Limitations General Appearance: Alert and In No Apparent Distress Head Head Exam: Normal Inspection Eyes Eye exam: Normal Appearance ENT ENT Exam: Normal Exam Neck Neck Exam: Normal Inspection Chest Chest Inspection: Normal Inspection Respiratory Respiratory Exam: Normal Lung Sounds Bilat Cardiovascular Cardiovascular Exam: Regular Rate, Normal Rhythm and Normal Heart Sounds Abdominal Exam Abdominal Exam: Normal Inspection, Normal Bowel Sounds and Soft Upper Extremities Shoulder Exam: Normal Inspection Arm Exam: Normal Inspection Elbow Exam: Normal Inspection Forearm Exam: Normal Inspection Hand Exam: Normal Inspection Neuromotor Exam: Normal Exam Neurosensory Exam: Normal Exam Upper Ext. Vascular Exam: Capillary Refill Lower Extremities Hip/Pelvis Exam: Normal Inspection Upper Leg Exam: Normal Inspection Knee Exam: Normal Inspection Lower Leg Exam: Swelling, Erythema (LEFT LE is mildly erythematous distal to the knee. ), Homans' Sign (+ on the LEFT side. ) and Other (Pulses DP and PT on the LEFT LE could not be palpated or auscultated with doppler. ) Back Back Exam: Normal Inspection Neurological Neurological Exam: Alert, Oriented X3 and Other (Pt had numbness in the LEFT LE distal to the knee. ) Psychiatric Psychiatric Exam: Normal Affect and Normal Mood Skin Skin Exam: Warm, Dry and Intact MDM Differential Diagnosis Differential Diagnosis: Other (DVT, LE anneurysm) COURSE Treatment Treatment: Will also order IV dilaudid 1 mg for pain. Reevaluation 1st: Consultation Called: 18:50 Call Returned: 18:50 Consultation Comments: Spoke to Dr. Mensah, Vascular Surgery, who stated that he would accept the pt for admission and to start the pt on a Heparin drip and order a CT angio of the aorta with runoff. Education/Counseling Education/Counseling: Patient (Spoke to pt about disease process and treatment plan. ) ROR Labs Reviewed Laboratory Results Reviewed?: Yes Result Diagrams: 03/04/21 19:25 03/04/21 16:49 Laboratory: WBC 8.0 X10^3/uL (3.6-10.0) 05/10/21 16:49 RBC 4.37 X10^6/uL (4.7-6.0) L 03/04/21 16:49 Hgb 13.3 g/dL (13.5-18.0) L 03/04/21 16:49 Hct 39.6 % (42.0-54.0) L 03/04/21 16:49 MCV 90.5 fL (80.0-100.0) 03/04/21 16:49 MCH 30.3 pg (27.0-34.0) 03/04/21 16:49 MCHC 33.5 g/dL (33.0-35.0) 03/04/21 16:49 RDW 13.7 % (11.6-16.5) 03/04/21 16:49 Plt Count 259 X10^3/uL (150.0-450.0) 03/04/21 19:25 MPV 8.7 fL (7.4-11.0) 03/04/21 16:49 Neut % (Auto) 64.6 % (42.0-75.0) 03/04/21 16:49 Lymph % (Auto) 26.0 % (21.0-51.0) 03/04/21 16:49 [place] % (Auto) 5.8 % (0.0-13.0) 03/04/21 16:49 Eos % (Auto) 2.1 % (0.9-2.9) 03/04/21 16:49 Baso % (Auto) 1.5 % (0.2-1.0) H 03/04/21 16:49 Neut # (Auto) 5.2 x10^3/uL (2.2-4.8) H 03/04/21 16:49 Lymph # (Auto) 2.1 X10^3/uL (1.3-2.9) 03/04/21 16:49 [place] # (Auto) 0.5 x10^3/uL (0.3-0.8) 03/04/21 16:49 Eos # (Auto) 0.2 x10^3/uL (0.0-0.2) 03/04/21 16:49 Baso # (Auto) 0.1 X10^3/uL (0.0-0.1) 03/04/21 16:49 Absolute Nucleated RBC 0.1 /100WBC 03/04/21 16:49 PT 20.8 SECONDS (11.8-14.3) 03/04/21 19:25 INR Target Range - 03/04/21 19:25 INR 1.89 (0.8-1.3) H 03/04/21 19:25 APTT 36.3 SECONDS (22.9-36.5) 03/04/21 19:25 PTT Comment - 03/04/21 19:25 D-Dimer 0.41 ug/ml (0.0-0.57) 03/04/21 16:49 Sodium 139 mmol/L (136-145) 03/04/21 16:49 Corrected Sodium 142 mmol/L (136-145) 03/04/21 16:49 Potassium 4.2 mmol/L (3.5-5.1) 03/04/21 16:49 Chloride 105 mmol/L (98-107) 03/04/21 16:49 Carbon Dioxide 27.4 mmol/L (21-32) 03/04/21 16:49 BUN 13 mg/dL (7-18) 03/04/21 16:49 Creatinine 0.95 mg/dL (0.70-1.30) 03/04/21 16:49 Est GFR (MDRD) Af Amer > 60 (>60) 03/04/21 16:49 Est GFR (MDRD) Non-Af > 60 (>60) 03/04/21 16:49 Glucose 220 mg/dL (65-99) H 03/04/21 16:49 Calcium 9.1 mg/dL (8.5-10.1) 03/04/21 16:49 Corrected Calcium 9.7 mg/dL (8.5-10.1) 03/04/21 16:49 Total Bilirubin 0.10 mg/dL (0.2-1.0) L 03/04/21 16:49 AST 12 Units/L (15-37) L 03/04/21 16:49 ALT 21 Units/L (12-78) 03/04/21 16:49 Alkaline Phosphatase 64 Units/L (46-116) 03/04/21 16:49 Creatine Kinase 34 Units/L (39-308) L 03/04/21 16:49 CK-MB (CK-2) 1.2 ng/mL (0-4.0) 03/04/21 16:49 CK/CKMB % Calc 3.5 % (<4) 03/04/21 16:49 Troponin I < 0.02 ng/mL (0-1.5) 03/04/21 16:49 Total Protein 6.7 g/dL (6.4-8.2) 03/04/21 16:49 Albumin 3.3 g/dL (3.4-5.0) L 03/04/21 16:49 Globulin 3.4 g/dL (2.5-4.5) 03/04/21 16:49 Albumin/Globulin Ratio 1.0 Ratio (1.1-2.1) L 03/04/21 16:49 Specimen Type Clean catch urine 03/04/21 16:28 Urine Color Yellow (YELLOW) 03/04/21 16:28 Urine Appearance Clear (CLEAR) 03/04/21 16:28 Urine pH 6.0 (5.0 - 8.0) 03/04/21 16:28 Ur Specific [place] 1.020 (1.000-1.030) 03/04/21 16:28 Urine Protein 1+ (NEGATIVE) 03/04/21 16: Urine Glucose (UA) Negative (NEGATIVE) 03/04/21 16: Urine Ketones Negative (NEGATIVE) 03/04/21 16:28 Urine Occult Blood 1+ (NEGATIVE) 03/04/21 16: Urine Nitrite Negative (NEGATIVE) 03/04/21 16: Urine Bilirubin Negative (NEGATIVE) 03/04/21 16:28 Urine Urobilinogen Normal (NORMAL) 03/04/21 16:28 Ur Leukocyte Esterase Negative (NEGATIVE) 03/04/21 16:28 Urine RBC 0-2 /HPF (0-3) 03/04/21 16:28 Urine WBC 0-2 /HPF (0-5) 03/04/21 16:28 Ur Squamous Epith Cells Rare /HPF (NEGATIVE) 03/04/21 16:28 Urine Bacteria Negative /HPF (NEGATIVE) 03/04/21 16:28 Ur Culture Indicated? No/not indicated 03/04/21 16:28 XRAY XRAY Interpreted by: Radiologist X-ray Results: Venous doppler: No DVT. CT Arterial LE: Severe PVD. EKG Rate: 65 [place]: Normal Rhythm: PACs Block: RBBB ST: Normal Opioid Opioid Risk Tool Age (Jose box if 16-45): No History of Preadolescent Sexual Abuse: No Total: 0 Total Score Risk Category: Low Risk Copyright: Quinton GREENFIELD predicting aberrant behaviors Diagnosis Discharge Problem: Peripheral artery disease
[2021-03-04 16:59] LABS: BASOPHILS # (AUTO) 0.1 X10^3/uL (0.0-0.1); BASOPHILS % (AUTO) 1.5 % (0.2-1.0); EOSINOPHILS # (AUTO) 0.2 x10^3/uL (0.0-0.2); EOSINOPHILS % (AUTO) 2.1 % (0.9-2.9); HEMATOCRIT 39.6 % (42.0-54.0); HEMOGLOBIN 13.3 g/dL (13.5-18.0); LYMPHOCYTES # (AUTO) 2.1 X10^3/uL (1.3-2.9); MEAN CORPUSCULAR HEMOGLOBIN 30.3 pg (27.0-34.0); MEAN CORPUSCULAR HGB CONC 33.5 g/dL (33.0-35.0); MEAN CORPUSCULAR VOLUME 90.5 fL (80.0-100.0); MEAN PLATELET VOLUME 8.7 fL (7.4-11.0); MONOCYTES # (AUTO) 0.5 x10^3/uL (0.3-0.8); MONOCYTES % (AUTO) 5.8 % (0.0-13.0); NEUTROPHILS # (AUTO) 5.2 x10^3/uL (2.2-4.8); NEUTROPHILS % (AUTO) 64.6 % (42.0-75.0); PLATELET COUNT 247 X10^3/uL (150.0-450.0); RED BLOOD COUNT 4.37 X10^6/uL (4.7-6.0); RED CELL DISTRIBUTION WIDTH 13.7 % (11.6-16.5)
[2021-03-04 17:12] LABS: ALANINE AMINOTRANSFERASE 21 Units/L (12-78); ALBUMIN 3.3 g/dL (3.4-5.0); ALKALINE PHOSPHATASE 64 Units/L (46-116); ASPARTATE AMINO TRANSFERASE 12 Units/L (15-37); BLOOD UREA NITROGEN 13 mg/dL (7-18); CALCIUM 9.1 mg/dL (8.5-10.1); CARBON DIOXIDE 27.4 mmol/L (21-32); CHLORIDE 105 mmol/L (98-107); COR CA(FOR HYPOALB) 9.7 mg/dL (8.5-10.1); COR NA(FOR HYPERGLY) 142 mmol/L (136-145); CREATININE 0.95 mg/dL (0.70-1.30); SODIUM 139 mmol/L (136-145); TOTAL PROTEIN 6.7 g/dL (6.4-8.2); eGFR NON BLACK RACES > 60 (>60)
[2021-03-04 17:41] LABS: CKMB % 3.5 % (<4); CREATINE KINASE 34 Units/L (39-308); CREATINE KINASE MB 1.2 ng/mL (0-4.0); TROPONIN I < 0.02 ng/mL (0-1.5)
--- NOTE | 2021-03-04 17:42 | VAS ---
HISTORYC/O PAIN IN LLESTUDYLOWER EXT VENOUS, UNILATERALCOMPARISONNo relevant prior studies available.TECHNIQUEGrayscale and color Doppler images of the left lower extremity.FINDINGSCommon femoral, femoral and popliteal veins demonstrate normal compressibility, color Doppler flow, waveforms and augmentation with no filling defects.Soft tissues: UnremarkableIMPRESSIONNo evidence of deep venous thrombus.Electronically signed by: Crispin Daily (March 04, 2021 17:40:49)
--- NOTE | 2021-03-04 17:46 | VAS ---
HISTORYC/O SEVERE LLE PAIN, S/P HEART CATH X 1 WEEK AGO, UNABLE TO FIND PULSE IN LEGSTUDYLOWER EXT ARTERIALCOMPARISONNo relevant prior studies available.[id number] grayscale and vascular waveform static images of the arterial structures of the left lower extremity were reviewed.FINDINGSMonophasic waveforms throughout the vascular structures of the left lower extremity.Peak systolic velocity in the FOUNTAIN WORKER measures 28.42 cm/second.Peak systolic velocity in the SFA measures 25.93-43.84 cm/second.Peak systolic velocity in the popliteal artery measures 22.71-24.78 cm/second.Peak systolic velocity in the TRAINING DEVELOPMENT SPECIALIST measures 23.95-44.57 cm/second.Peak systolic velocity in the DPA measures 34.63 cm/second.IMPRESSIONSevere peripheral vascular disease throughout the left lower extremity. Arterial structures in the left lower extremity remain patent.Electronically signed by: Crispin Daily (March 04, 2021 17:44:20)
[2021-03-04 18:26] LABS: BILIRUBIN,URINE NEGATIVE (NEGATIVE); BLOOD/HEMOGLOBIN,URINE 1+ (NEGATIVE); GLUCOSE, URINE NEGATIVE (NEGATIVE); KETONES,URINE NEGATIVE (NEGATIVE); LEUKOCYTE ESTERASE ,URINE NEGATIVE (NEGATIVE); NITRITES,URINE NEGATIVE (NEGATIVE); PROTEIN,URINE 1+ (NEGATIVE); UROBILINOGEN,URINE NORMAL (NORMAL)
[2021-03-04] MEDS ORDERED: NORCO 10/325 TAB PO ONE (18:26)
[2021-03-04 18:42] LABS: APPEARANCE,URINE CLEAR (CLEAR); COLOR,URINE YELLOW (YELLOW); RBC,URINE 0-2 /HPF (0-3); SQUAMOUS EPITHELIAL CELL,UR RARE /HPF (NEGATIVE)
[2021-03-04 18:43] LABS: BACTERIA,URINE NEGATIVE /HPF (NEGATIVE)
[2021-03-04] MEDS ORDERED: HEPARIN SODIUM IN D5W 25,000 UNITS/500 ML BAG IV PRN (19:00)
[2021-03-04] MEDS ORDERED: DILAUDID INJ IVP ONE ×2 (19:06→22:06)
[2021-03-04] MEDS ORDERED: NS 100 ML IV 100 ML IV ONE (19:07)
[2021-03-04] MEDS ORDERED: HEPARIN SODIUM IN D5W 25,000 UNITS/500 ML BAG IV ONE (19:09)
[2021-03-04] MEDS ORDERED: HEPARIN SODIUM INJ 5000 UNITS ONE (19:18)
[2021-03-04] MEDS ORDERED: DILAUDID INJ ONE ×2 (19:18→21:49)
[2021-03-04] MEDS ORDERED: ZOFRAN INJ 4 MG VIAL ONE (19:27)
[2021-03-04] MEDS ORDERED: HEPARIN SODIUM INJ 5000 UNITS IVP ONE (19:48)
[2021-03-04] MEDS ORDERED: ZOFRAN INJ 4 MG VIAL IVP SCH (20:00)
--- NOTE | 2021-03-04 21:45 | CT ---
CT angiogram aorta (including abdomen and pelvis) with and without contrastCT bilateral lower extremity angiogram with and without contrast runoffIndication: Peripheral vascular disease with left leg pain.COMPARISONArterial Doppler sonogram from the same day without other recent prior.TECHNIQUEHelical images through the lower abdomen, pelvis and bilateral lower extremities before and after IV contrast per protocol. Postcontrast imaging includes the lower chest and abdomen. Coronal and sagittal reformats provided. MIP images provided.FINDINGSReview of bone windows demonstrate postsurgical change in lumbar spine without destructive osseous lesion.Noncontrast imaging demonstrates scattered vascular calcifications with no other unexpected abnormality.Postcontrast imaging demonstrates cardiomegaly with possible thrombus at the left ventricular apex on axial image 6. Lung bases are otherwise clear.Abdomen: The liver, gallbladder, spleen, pancreas, adrenal glands, stomach and small bowel show no acute abnormality. The appendix is normal. Few noninflamed colonic diverticular noted. The kidneys show no hydroureteronephrosis.Pelvis: The urinary bladder and rectum are normal. Prostate gland is normal.Angiogram:Abdomen & pelvis:Celiac axis shows mild plaque at the origin with branch vessels being patent.The SMA shows minimal plaque at the origin, with patent distal vessels.Renal arteries are patent without high-grade stenosis.Severe stenosis at the ZULEYMA origin on axial image 73 is noted with normal flow distally.Scattered soft plaque and calcified plaque is seen at the aorta without aneurysm or dissection. The left common iliac artery is completely occluded from axial image 91 to just above the bifurcation on axial image 104. Presumably reconstituted via pelvic collaterals. The right common iliac artery shows scattered plaque with focal less than 50 percent stenosis on axial image 93.Significant stenosis of the right internal iliac artery, probably greater than 50 percent on axial image 107 suspected.Left internal iliac artery similarly shows probably 50 percent to 75 percent stenosis on axial image 109.The right and left external iliac arteries are patent.Right lower extremity: The right common femoral artery is patent. Profunda branches are patent. Superficial femoral artery is patent with few scattered plaques noted. The popliteal artery is patent. The anterior tibial artery, peroneal trunk and posterior tibial artery are patent at the level of the bifurcation.Anterior tibial artery shows no flow just below the knee on axial image 90, with reconstitution of the dorsalis pedis via peroneal branches on axial images 152-185 with 2 vessel runoff to the foot. Posterior tibial artery is patent and provides plantar arch flow.Left lower extremity: The common femoral artery shows few calcifications on axial image 149 but is patent. Profunda branches are patent. Superficial femoral artery is patent. Soft plaque seen on axial image 270 without high-grade stenosis. Popliteal artery is patent.As on the left, the anterior tibial artery is no longer seen just above the mid calf on axial image 104 with the posterior tibial artery and peroneal trunk providing flow to the ankle, with the dorsalis pedis supplied via the anterior tibial artery. However, there is poor flow in the dorsalis pedis which is probably occluded on axial images 165, then reconstituted on axial image 176. There is reocclusion, within reperfusion on axial image 193 via plantar branches which are supplied by the patent posterior tibial artery.IMPRESSION1. Scattered aortic and branch vessel plaque with complete occlusion of the left common iliac artery as above. Reconstitution is seen distally2. Bilateral narrowings of the internal iliac arteries at their origins, with other less significant abdominopelvic plaque as above. The ZULEYMA is narrowed.3. The bilateral anterior tibial arteries show no flow just below the knee in the mid calf.4. The left dorsalis pedis is supplied via peroneal branches, but is occluded at the origin, being reconstituted at the midportion and distally, probably via plantar branches. This is the equivalent of single-vessel runoff to the left foot. The dorsalis pedis acute lesion could be acute.5. Two vessel runoff to the right foot and ankle.6. Cardiomegaly with probable thrombus at the left ventricular apex, possibly some a source of the left lower extremity thrombosis.7. Other incidental findings as above.Electronically signed by: AMARILIS SANCHEZ (March 04, 2021 21:43:06)
[2021-03-05] MEDS: MORPHINE SULFATE INJ 2 MG INJ IVP PRN ×2 (02:01→05:53)
[2021-03-05] MEDS ORDERED: NORCO 5/325 MG TAB PO PRN (03:11)
[2021-03-05] MEDS ORDERED: ATIVAN TAB 1 MG PO PRN (07:41)
[2021-03-05] MEDS ORDERED: NORVASC TAB 5 MG PO SCH (09:00)
[2021-03-05] MEDS ORDERED: CYMBALTA PO SCH (09:00)
[2021-03-05] MEDS: DILAUDID INJ IVP PRN ×2 (09:27→20:01)
[2021-03-05] MEDS: PROTONIX TAB 40 MG PO SCH ×2 (09:28→09:29)
[2021-03-05] MEDS: ZESTRIL TAB 5 MG PO SCH (09:28)
[2021-03-05] MEDS: COREG TAB 6.25 MG PO SCH ×2 (09:29→21:18)
[2021-03-05] MEDS: LR 1000 ML IV 1,000 ML IV SCH ×3 (09:29→20:34)
--- NOTE | 2021-03-05 10:20 | DR.H&P ---
H&P History & Physical for Day of: H&P Date: 03/05/21 Chief Complaint Chief Complaint: Severe pain primarily left leg when walking. Pain is classic for short distance claudication but also with rest pain at night. Status post cardiac catheterization and stent placement one could go. At first she related this pain to that event but on further questioning he has been having this pain pattern for many months. Allergies Allergies Allergy/AdvReac Type Severity Reaction Status Date / Time atorvastatin Allergy Verified 03/04/21 16:13 History of Present Illness History of Present Illness: History of [place] times four, coronary stents times eight, history CVA with right arm and leg weakness with resolution. see above, CTA confirms short segment total occlusion of the proximal left common iliac artery with reconstitution and good runoff. Past Medical History Past Medical History: Anxiety (uses Lorazepam BID), Coronary Artery Disease, CVA ( History of CVA in the past with right arm and right leg weakness with c omplete resolution quickly.), Diabetes, Dyslipidemia, Hypertension and WA Additional Medical History: hypeerlipidemia Past Surgical History Surgical History: Angioplasty/Stents and Other (Hx of back surgery with metal implanted.) Family History Family Medical History: Coronary Artery Disease Social History Does patient currently use any type of tobacco product: Yes (greated than 1pack/day) Type of Tobacco Use: Cigarettes How many years tobacco product used: 35 Alcohol Use: None Medications Home Medications: atorvastatin Allergy (Verified 03/04/21 16:13) Amlodipine Carvediol Plavix Duloxetine Gabepentin Hyrocodone Lisinopril [place] Lorezepam Prilosec Xarelto Labs Result Diagrams: 03/04/21 19:25 03/04/21 16:49 Labs: Laboratory WBC 8.0 X10^3/uL (3.6-10.0) 03/04/21 16:49 RBC 4.37 X10^6/uL (4.7-6.0) L 03/04/21 16:49 Hgb 13.3 g/dL (13.5-18.0) L 03/04/21 16:49 Hct 39.6 % (42.0-54.0) L 03/04/21 16:49 MCV 90.5 fL (80.0-100.0) 03/04/21 16:49 MCH 30.3 pg (27.0-34.0) 03/04/21 16:49 MCHC 33.5 g/dL (33.0-35.0) 03/04/21 16:49 RDW 13.7 % (11.6-16.5) 03/04/21 16:49 Plt Count 259 X10^3/uL (150.0-450.0) 03/04/21 19:25 MPV 8.7 fL (7.4-11.0) 03/04/21 16:49 Neut % (Auto) 64.6 % (42.0-75.0) 03/04/21 16:49 Lymph % (Auto) 26.0 % (21.0-51.0) 03/04/21 16:49 [place] % (Auto) 5.8 % (0.0-13.0) 03/04/21 16:49 Eos % (Auto) 2.1 % (0.9-2.9) 03/04/21 16:49 Baso % (Auto) 1.5 % (0.2-1.0) H 03/04/21 16:49 Neut # (Auto) 5.2 x10^3/uL (2.2-4.8) H 03/04/21 16:49 Lymph # (Auto) 2.1 X10^3/uL (1.3-2.9) 03/04/21 16:49 [place] # (Auto) 0.5 x10^3/uL (0.3-0.8) 03/04/21 16:49 Eos # (Auto) 0.2 x10^3/uL (0.0-0.2) 03/04/21 16:49 Baso # (Auto) 0.1 X10^3/uL (0.0-0.1) 03/04/21 16:49 Absolute Nucleated RBC 0.1 /100WBC 03/04/21 16:49 PT 20.8 SECONDS (11.8-14.3) 03/04/21 19:25 INR Target Range - 03/04/21 19:25 INR 1.89 (0.8-1.3) H 03/04/21 19:25 APTT 95.9 SECONDS (22.9-36.5) H 03/05/21 01:45 PTT Comment - 03/05/21 01:45 D-Dimer 0.41 ug/ml (0.0-0.57) 03/04/21 16:49 Sodium 139 mmol/L (136-145) 03/04/21 16:49 Corrected Sodium 142 mmol/L (136-145) 03/04/21 16:49 Potassium 4.2 mmol/L (3.5-5.1) 03/04/21 16:49 Chloride 105 mmol/L (98-107) 03/04/21 16:49 Carbon Dioxide 27.4 mmol/L (21-32) 03/04/21 16:49 BUN 13 mg/dL (7-18) 03/04/21 16:49 Creatinine 0.95 mg/dL (0.70-1.30) 03/04/21 16:49 Est GFR (MDRD) Af Amer > 60 (>60) 03/04/21 16:49 Est GFR (MDRD) Non-Af > 60 (>60) 03/04/21 16:49 Glucose 220 mg/dL (65-99) H 03/04/21 16:49 Calcium 9.1 mg/dL (8.5-10.1) 03/04/21 16:49 Corrected Calcium 9.7 mg/dL (8.5-10.1) 03/04/21 16:49 Total Bilirubin 0.10 mg/dL (0.2-1.0) L 03/04/21 16:49 AST 12 Units/L (15-37) L 03/04/21 16:49 ALT 21 Units/L (12-78) 03/04/21 16:49 Alkaline Phosphatase 64 Units/L (46-116) 03/04/21 16:49 Creatine Kinase 34 Units/L (39-308) L 03/04/21 16:49 CK-MB (CK-2) 1.2 ng/mL (0-4.0) 03/04/21 16:49 CK/CKMB % Calc 3.5 % (<4) 03/04/21 16:49 Troponin I < 0.02 ng/mL (0-1.5) 03/04/21 16:49 Total Protein 6.7 g/dL (6.4-8.2) 03/04/21 16:49 Albumin 3.3 g/dL (3.4-5.0) L 03/04/21 16:49 Globulin 3.4 g/dL (2.5-4.5) 03/04/21 16:49 Albumin/Globulin Ratio 1.0 Ratio (1.1-2.1) L 03/04/21 16:49 Specimen Type Clean catch urine 03/04/21 16:28 Urine Color Yellow (YELLOW) 03/04/21 16: Urine Appearance Clear (CLEAR) 03/04/21 16: Urine pH 6.0 (5.0 - 8.0) 03/04/21 16:28 Ur Specific [place] 1.020 (1.000-1.030) 03/04/21 16: Urine Protein 1+ (NEGATIVE) 03/04/21 16: Urine Glucose (UA) Negative (NEGATIVE) 03/04/21 16: Urine Ketones Negative (NEGATIVE) 03/04/21 16: Urine Occult Blood 1+ (NEGATIVE) 03/04/21 16: Urine Nitrite Negative (NEGATIVE) 03/04/21 16: Urine Bilirubin Negative (NEGATIVE) 03/04/21 16:28 Urine Urobilinogen Normal (NORMAL) 03/04/21 16:28 Ur Leukocyte Esterase Negative (NEGATIVE) 03/04/21 16: Urine RBC 0-2 /HPF (0-3) 03/04/21 16: Urine WBC 0-2 /HPF (0-5) 03/04/21 16:28 Ur Squamous Epith Cells Rare /HPF (NEGATIVE) 03/04/21 16:28 Urine Bacteria Negative /HPF (NEGATIVE) 03/04/21 16:28 Ur Culture Indicated? No/not indicated 03/04/21 16: SARS CoV-2 RNA Rapid PANCHITO Negative (NEGATIVE) 03/04/21 21:30 Review of Systems Respiratory: denies No Symptoms Reported, See HPI, Cough, Dry, Shortness of Breath, Hemoptysis, SOB with Excertion, Pleuritic Pain, Sputum, Wheezing and Other Physical Exam Vital Signs: Temperature 98.1 F Pulse Rate [Apical] 61 Pulse Rate [Left] 64 Pulse Rate 61 Respiratory Rate 18 Blood Pressure [Right Arm] 154/85 Blood Pressure [Left Arm] 163/78 Blood Pressure 152/74 O2 Sat by Pulse Oximetry 96 Oriented: Normal Eyes: Normal Ear: Normal Nose: Normal Respiratory: negative Clear Throughout, Diminished Throughout, Rhonchi Throughout, Rales Throughout, Wheezes Throughout, RUL Clear, RML Clear, RLL Clear, JONATHON Clear, LML Clear, LLL Clear, RUL Diminished, RML Diminished, RLL Diminished, JONATHON Diminished, LML Diminished, LLL Diminished, RUL Absent, RML Absent, RLL Absent, JONATHON Absent, LML Absent, LLL Absent, RUL Rhonchi, RML Rhonchi, RLL Rhonchi, JONATHON Rhonchi, LML Rhonchi, LLL Rhonchi, RUL Insp. Wheeze, RML Insp. Wheeze, RLL Insp. Wheeze, JONATHON Insp.Wheeze, LML Insp.Wheeze, LLL Insp.Wheeze, RUL Exp. Wheeze, RML Exp. Wheeze, RLL Exp. Wheeze, JONATHON Exp. Wheeze, LML Exp. Wheeze, LLL Exp. Wheeze, RUL Rales, RML Rales, RLL Rales, JONATHON Rales, LML Rales, LLL Rales, RUL Rub, RML Rub, RLL Rub, JONATHON Rub, LML Rub, LLL Rub, RUL Squeak, RML Squeak, RLL Squeak, JONATHON Squeak, LML Squeak and LLL Squeak Cardiovascular: Normal and Other ( NO tissue loss left foot. Pulses palpable of right leg . Left leg with absent femoral and distal pulses.) : Normal Palpation: Normal Tenderness: Normal Skin: Normal Musculoskeletal: Normal Mood Description: Anxious Affect: Angry Speech Pattern: Clear Assessment/Plan (1) Iliac artery occlusion, left: Status: Acute Plan: Willplan Heparin drip tonight 03/04/21 and plan arteriogram and stenting left common iliac artery and possible intervention of left leg further down if necessary. (2) Coronary artery disease: Status: Acute Plan: Stable, current treatment (3) Hypertension: Status: Acute Plan: current medications (4) GERD (gastroesophageal reflux disease): Qualifiers: Esophagitis presence: esophagitis presence not specified Qualified Code(s): K21.9 - Gastro-esophageal reflux disease without esophagitis Status: Chronic Plan: Continue Protonix (5) Hyperlipidemia: Qualifiers: Hyperlipidemia type: mixed hyperlipidemia Status: Chronic (6) History of angina: Status: Chronic (7) History of WA (myocardial infarction): Status: Chronic (8) Anxiety: Status: Chronic Plan: continue home meds (9) Diabetes mellitus, type 2: Status: Chronic Plan: sliding scale insulin
[2021-03-05] MEDS ORDERED: DECADRON INJ ONE (13:00)
[2021-03-05] MEDS ORDERED: TORADOL 30 MG VIAL ONE (13:00)
[2021-03-05] MEDS ORDERED: OFIRMEV IV 1000 MG VIAL 1,000 MG/100 ML VIAL IV ONE (13:01)
[2021-03-05] MEDS ORDERED: FENTANYL INJ 100 mcg ONE ×2 (13:01→13:37)
[2021-03-05] MEDS ORDERED: NS 1000 ML 1,000 ML ONE ×2 (13:01→13:18)
[2021-03-05] MEDS ORDERED: MARCAINE/EPINEPHRINE ONE (13:30)
[2021-03-05] MEDS ORDERED: HEPARIN SODIUM IN D5W 75,000 UNITS/1,500 ML BAG IV ONE (13:30)
[2021-03-05] MEDS ORDERED: HEPARIN SODIUM IN D5W 25,000 UNITS/500 ML BAG IV ONE (13:30)
[2021-03-05] MEDS ORDERED: ANCEF 1 GRAM IV PREMIX* 1 G/50 ML BAG IV ONE (13:37)
[2021-03-05] MEDS ORDERED: HEPARIN SODIUM INJ 5000 UNITS ONE (13:50)
[2021-03-05] MEDS ORDERED: LITHIUM CARBONATE (PLAIN) PO SCH ×2 (14:00→21:00)
[2021-03-05] MEDS ORDERED: DILAUDID INJ ONE ×2 (15:36→15:46)
--- NOTE | 2021-03-05 15:37 | OR.IMMED ---
IMMEDIATE POST-OP NOTE Immediate Post-Op Note Pre-Op Diagnosis: LEFT COMMON ILIAC ARTERY OCCLUSIOn with ischemic left foot Post-Op Diagnosis: same Procedure: Stenting left common iliac artery, angiojet of same Description of Procedure: See ope summary Surgeon/Project Coach: Rodrick Findings: As above Specimens Removed: none Estimated Blood Loss: 100 cc Drains: NONE Complications: none Progress Notes: to Medical Surgical Discharge Progress Notes: Stable Condition: Stable Final Diagnosis: left common iliac artery occlusion
[2021-03-05] MEDS ORDERED: HumuLIN R SC PRN (15:53)
[2021-03-05] MEDS ORDERED: APRESOLINE INJ 20 MG VIAL ONE (16:15)
[2021-03-05] MEDS ORDERED: ZOFRAN INJ 4 MG VIAL IVP PRN (16:20)
[2021-03-05] MEDS ORDERED: BENADRYL INJ 50 MG VIAL IVP PRN (16:20)
[2021-03-05] MEDS ORDERED: DILAUDID INJ IVP PRN (16:20)
[2021-03-05] MEDS ORDERED: HumuLIN R SUBCUT PRN (16:31)
[2021-03-05] MEDS ORDERED: NORCO 10/325 TAB PO PRN (16:31)
--- NOTE | 2021-03-05 19:41 | DR.OPNOTE ---
OP NOTE Pre-Op Diagnosis: Ischemic left leg, rest pain, left common iliac occlusion Post-Op Diagnosis: Same Procedure: This patient had presented with rest pain the left leg for several weeks. He had had cardiac catheterization one week prior via the right radial artery and was on both Plavix and Xarelto. He is a heavy smoker. Ultrasonography confirmed absent pulsatile flow in the left leg and CT angiogram confirmed complete occlusion of the proximal left common iliac artery with good runoff to the left leg and the right leg. Patient was admitted and placed in the ICU on a heparin drip. Heparin drip was discontinued shortly before bringing him to the operating room. He was taken to the operating suite and placed in the supine position. The entire left leg and the right groin were prepped and draped in sterile fashion. Time out for the procedure obtained. IV sedation alone was not enough to keep him still therefore it was elected to place an LMA to control his airway and deepen his sedation. Ultrasonography used to identify the right femoral artery and the skin overlying the right femoral artery infiltrated with 0.5 % Marcaine with epinephrine. Using ultrasonography guidance ,the right femoral artery was punctured with a micro needle and a 0.014 inch guidewire placed. The patient at this point was heparinized with 5000 units of heparin. The 0.014 inch guidewire was replaced with a 0.035 inch Advantage guidewire. The micro sheath removed and exchange for a 6 [place] short vascular sheath . Omni flush catheter placed over the guidewire into the aorta and diagnostic aortogram carried out showing normal distal aorta with complete occlusion of the proximal left common iliac artery. Ultrasonography used to identify the left femoral artery which was pulseless, and also ws used to guide puncture of the left femoral artery after infiltrating the left groin with 0.5 % Marcaine with epinephrine. 0.018 inch guidewire placed in the left femoral artery and the needle exchanged for a micro sheath. The 0.014 inch guidewire exchanged for a 0.018 inch guidewire and a 7 [place] sheath used to replace the micro sheath in the left groin. The 0.018 inch wire easily traversed the occlusion of the left common iliac artery into the [place] aorta. At this point intravascular ultrasound transducer was placed over the guidewire into the left vessel showing the [place] aorta with evidence of old disease of the left proximal common iliac artery with no fresh clot. The ultrasonography transducer was removed and exchanged for the AngioJet aspiration device which was used aspirate any clot in the, left leg artery. This was removed and arteriogram repeated showing complete occlusion of the left proximal common iliac artery with reconstitution of the left internal and left external iliac arteries. At this point we placed 8 mm x 57 mm [employer] stent which was deployed in the left common iliac artery. Repeat arteriogram showed excellent flow into the left groin. Repeat intravascular ultrasound showed size mismatch between the stent and the artery wall therefore we ballooned the stent to 9 millimeters 9 mm [employer] 9mm [place] balloon. Repeat arteriogram showed excellent flow into the left iliac and femoral vessels. All devices removed from both sheaths bilaterally. Angioseal devices used to close both femoral puncture sites. There was no leak from either groin. Patient had palpable dorsalis pedis pulse of the left foot which had not been there previously. He was extubated and taken to the PACU for recovery. He will go back to the medical surgical floor. Anesthesia Comment: LMA/ general /local Findings: complete occlusion proximal left common iliac artery Specimen/Pathology: none Type of Fluids Used:: Normal Saline Total Amount of Fluid Infused:: 600 cc Urine output: 400 cc EBL: 100 cc Drains/Tubes Placed: None and [place] (removed at end of case) Complications:: none Needle/Sponge Count:: correct Disposition/Condition: Pt. tolerated procedure without difficulty. Extubated in the OR and taken to PACU in stable condition.
[2021-03-05] MEDS ORDERED: SNACK - Diabetic Appropriate PO SCH (20:00)
[2021-03-05 20:44] VITALS: BMI 30.7
[2021-03-05] MEDS ORDERED: COREG TAB 6.25 MG PO SCH (21:00)
[2021-03-05] MEDS ORDERED: ATIVAN TAB 1 MG PO SCH (21:00)
[2021-03-05] MEDS: NEURONTIN CAP 400 MG PO SCH (21:18)
[2021-03-05] MEDS ORDERED: DIPRIVAN VIAL ONE (21:26)
[2021-03-05] MEDS ORDERED: EPHEDRINE SULFATE INJ ONE (21:26)
[2021-03-05] MEDS ORDERED: XYLOCAINE 1 % (PLAIN) ONE (21:26)
[2021-03-05] MEDS ORDERED: AMIDATE INJ 40 MG VIAL ONE (21:26)
[2021-03-05] MEDS ORDERED: ULTANE GAS IN ONE (21:26)
[2021-03-06] MEDS: LR 1000 ML IV 1,000 ML IV SCH ×3 (00:18→07:18)
[2021-03-06] MEDS: DILAUDID INJ IVP PRN ×3 (00:18→09:12)
[2021-03-06 05:56] LABS: BASOPHILS # (AUTO) 0.1 X10^3/uL (0.0-0.1); BASOPHILS % (AUTO) 0.6 % (0.2-1.0); EOSINOPHILS # (AUTO) 0.4 x10^3/uL (0.0-0.2); EOSINOPHILS % (AUTO) 3.8 % (0.9-2.9); HEMATOCRIT 40.7 % (42.0-54.0); HEMOGLOBIN 13.4 g/dL (13.5-18.0); LYMPHOCYTES % (AUTO) 17.5 % (21.0-51.0); MEAN CORPUSCULAR HEMOGLOBIN 30.1 pg (27.0-34.0); MEAN CORPUSCULAR HGB CONC 32.9 g/dL (33.0-35.0); MEAN CORPUSCULAR VOLUME 91.7 fL (80.0-100.0); MEAN PLATELET VOLUME 8.8 fL (7.4-11.0); MONOCYTES # (AUTO) 0.9 x10^3/uL (0.3-0.8); MONOCYTES % (AUTO) 7.8 % (0.0-13.0); NEUTROPHILS # (AUTO) 8.2 x10^3/uL (2.2-4.8); NEUTROPHILS % (AUTO) 70.3 % (42.0-75.0); PLATELET COUNT 242 X10^3/uL (150.0-450.0); RED BLOOD COUNT 4.44 X10^6/uL (4.7-6.0); WHITE BLOOD COUNT 11.7 X10^3/uL (3.6-10.0)
[2021-03-06 06:11] LABS: ALANINE AMINOTRANSFERASE 22 Units/L (12-78); ALBUMIN 3.7 g/dL (3.4-5.0); ALKALINE PHOSPHATASE 67 Units/L (46-116); ASPARTATE AMINO TRANSFERASE 55 Units/L (15-37); BLOOD UREA NITROGEN 18 mg/dL (7-18); CALCIUM 9.1 mg/dL (8.5-10.1); CARBON DIOXIDE 21.7 mmol/L (21-32); CHLORIDE 106 mmol/L (98-107); COR NA(FOR HYPERGLY) 140 mmol/L (136-145); CREATININE 1.37 mg/dL (0.70-1.30); SODIUM 139 mmol/L (136-145); TOTAL PROTEIN 6.9 g/dL (6.4-8.2); eGFR NON BLACK RACES 56 (>60)
[2021-03-06 08:11] VITALS: BP 133/79
[2021-03-06] MEDS ORDERED: ZESTRIL TAB 5 MG PO SCH (09:00)
[2021-03-06] MEDS ORDERED: XARELTO PO SCH (09:00)
[2021-03-06] MEDS ORDERED: LITHIUM CARBONATE (PLAIN) PO SCH (09:00)
[2021-03-06] MEDS ORDERED: NORVASC TAB 5 MG PO SCH (09:00)
[2021-03-06] MEDS ORDERED: PLAVIX PO SCH (09:00)
[2021-03-06] MEDS ORDERED: PriLOSEC PO SCH (09:00)
[2021-03-06] MEDS ORDERED: CYMBALTA PO SCH (09:00)
[2021-03-06] MEDS: COREG TAB 6.25 MG PO SCH (09:10)
[2021-03-06] MEDS: NEURONTIN CAP 400 MG PO SCH (09:10)
[2021-03-06] MEDS: PROTONIX TAB 40 MG PO SCH (09:11)
[2021-03-06] MEDS: ZESTRIL TAB 5 MG PO SCH (09:11)
--- NOTE | 2021-03-06 10:20 | PCM.DCPLAN ---
DISCHARGE SUMMARY Admission Date Date of Admission: 03/04/21 Discharge Date Discharge Date: 03/06/21 Admission Diagnoses (1) Iliac artery occlusion, left: Status: Acute (2) Coronary artery disease: Status: Acute (3) Hypertension: Status: Acute (4) GERD (gastroesophageal reflux disease): Status: Chronic (5) Hyperlipidemia: Status: Chronic (6) History of angina: Status: Chronic (7) History of [place] (myocardial infarction): Status: Chronic (8) Anxiety: Status: Chronic (9) Diabetes mellitus, type 2: Status: Chronic Discharge Diagnoses Discharge Diagnosis: Left common iliac artery occlusion with ischemic left lower extremity with impending tissue loss. Discharge Medications Discharge Medications: Prescriptions: No new medications . Restart both PLAVIX and Xarelto. Hospital Course Vital Signs: Temperature 99.1 F Pulse Rate [Apical] 74 Pulse Rate [Left] 64 Pulse Rate 63 Respiratory Rate 20 Blood Pressure [Right Arm] 133/79 Blood Pressure [Left Arm] 163/78 Blood Pressure 178/79 O2 Sat by Pulse Oximetry 93 Latest Lab Results: Laboratory Last Values WBC 11.7 X10^3/uL (3.6-10.0) H 03/06/21 05:23 RBC 4.44 X10^6/uL (4.7-6.0) L 03/06/21 05:23 Hgb 13.4 g/dL (13.5-18.0) L 03/06/21 05:23 Hct 40.7 % (42.0-54.0) L 03/06/21 05:23 MCV 91.7 fL (80.0-100.0) 03/06/21 05:23 MCH 30.1 pg (27.0-34.0) 03/06/21 05:23 MCHC 32.9 g/dL (33.0-35.0) L 03/06/21 05:23 RDW 14.0 % (11.6-16.5) 03/06/21 05:23 Plt Count 242 X10^3/uL (150.0-450.0) 03/06/21 05:23 MPV 8.8 fL (7.4-11.0) 03/06/21 05:23 Neut % (Auto) 70.3 % (42.0-75.0) 03/06/21 05:23 Lymph % (Auto) 17.5 % (21.0-51.0) L 03/06/21 05:23 [place] % (Auto) 7.8 % (0.0-13.0) 03/06/21 05:23 Eos % (Auto) 3.8 % (0.9-2.9) H 03/06/21 05:23 Baso % (Auto) 0.6 % (0.2-1.0) 03/06/21 05:23 Neut # (Auto) 8.2 x10^3/uL (2.2-4.8) H 03/06/21 05:23 Lymph # (Auto) 2.0 X10^3/uL (1.3-2.9) 03/06/21 05:23 [place] # (Auto) 0.9 x10^3/uL (0.3-0.8) H 03/06/21 05:23 Eos # (Auto) 0.4 x10^3/uL (0.0-0.2) H 03/06/21 05:23 Baso # (Auto) 0.1 X10^3/uL (0.0-0.1) 03/06/21 05:23 Absolute Nucleated RBC 0.0 /100WBC 03/06/21 05:23 PT 13.6 SECONDS (11.8-14.3) 03/06/21 05:23 INR Target Range - 03/06/21 05:23 INR 1.10 (0.8-1.3) 03/06/21 05:23 APTT 25.8 SECONDS (22.9-36.5) 03/06/21 05:23 PTT Comment - 03/06/21 05:23 D-Dimer 0.41 ug/ml (0.0-0.57) 03/04/21 16:49 Sodium 139 mmol/L (136-145) 03/06/21 05:23 Corrected Sodium 140 mmol/L (136-145) 03/06/21 05:23 Potassium 3.8 mmol/L (3.5-5.1) 03/06/21 05:23 Chloride 106 mmol/L (98-107) 03/06/21 05:23 Carbon Dioxide 21.7 mmol/L (21-32) 03/06/21 05:23 BUN 18 mg/dL (7-18) 03/06/21 05:23 Creatinine 1.37 mg/dL (0.70-1.30) H 03/06/21 05:23 Est GFR (MDRD) Af Amer > 60 (>60) 03/06/21 05:23 Est GFR (MDRD) Non-Af 56 (>60) L 03/06/21 05:23 Glucose 137 mg/dL (65-99) H 03/06/21 05:23 POC Glucose (mg/dL) 134 mg/dL (65-99) H 03/06/21 05:50 Calcium 9.1 mg/dL (8.5-10.1) 03/06/21 05:23 Corrected Calcium TNP 03/06/21 05:23 Total Bilirubin 0.80 mg/dL (0.2-1.0) 03/06/21 05:23 AST 55 Units/L (15-37) H 03/06/21 05:23 ALT 22 Units/L (12-78) 03/06/21 05:23 Alkaline Phosphatase 67 Units/L (46-116) 03/06/21 05:23 Creatine Kinase 34 Units/L (39-308) L 03/04/21 16:49 CK-MB (CK-2) 1.2 ng/mL (0-4.0) 03/04/21 16:49 CK/CKMB % Calc 3.5 % (<4) 03/04/21 16:49 Troponin I < 0.02 ng/mL (0-1.5) 03/04/21 16:49 Total Protein 6.9 g/dL (6.4-8.2) 03/06/21 05:23 Albumin 3.7 g/dL (3.4-5.0) 03/06/21 05:23 Globulin 3.2 g/dL (2.5-4.5) 03/06/21 05:23 Albumin/Globulin Ratio 1.2 Ratio (1.1-2.1) 03/06/21 05:23 Specimen Type Clean catch urine 03/04/21 16:28 Urine Color Yellow (YELLOW) 03/04/21 16:28 Urine Appearance Clear (CLEAR) 03/04/21 16:28 Urine pH 6.0 (5.0 - 8.0) 03/04/21 16:28 Ur Specific [place] 1.020 (1.000-1.030) 03/04/21 16: Urine Protein 1+ (NEGATIVE) 03/04/21 16: Urine Glucose (UA) Negative (NEGATIVE) 03/04/21 16: Urine Ketones Negative (NEGATIVE) 03/04/21 16: Urine Occult Blood 1+ (NEGATIVE) 03/04/21 16: Urine Nitrite Negative (NEGATIVE) 03/04/21: Urine Bilirubin Negative (NEGATIVE) 03/04/21 16: Urine Urobilinogen Normal (NORMAL) 03/04/21 16: Ur Leukocyte Esterase Negative (NEGATIVE) 03/04/21 16: Urine RBC 0-2 /HPF (0-3) 03/04/21: Urine WBC 0-2 /HPF (0-5) 03/04/21 16: Ur Squamous Epith Cells Rare /HPF (NEGATIVE) 03/04/21 16: Urine Bacteria Negative /HPF (NEGATIVE) 03/04/21: Ur Culture Indicated? No/not indicated 03/04/21 16: SARS CoV-2 RNA Rapid PANCHITO Negative (NEGATIVE) 03/04/21 21:30 Hospital Course: 60-year-old male admitted from the emergency room with extremely ischemic, pulseless left leg. CT angiogram confirmed proximal left common iliac artery occlusion. Patient was admitted and placed on heparin drip overnight and the next day taken to the operating room where he underwent AngioJet aspiration of this area and stenting of the left common iliac artery reestablishing flow. Patient now has a palpable pulse at the dorsalis pedis the left foot. He will be usual discharged home on his medications include Xarelto and Plavix. He will follow up with me in one week. Instructions Instructions: Angiogram Peripheral Vascular Disease, [id number] Chronic Obstructive Pulmonary Disease, Ohgj-[id number] Type 2 Diabetes Mellitus, Self Care, Adult, [id number] Coronary Angiogram Bleeding Precautions When on Anticoagulant Therapy, Adult Heart Failure, [id number] Partial Thromboplastin Time Test Forms: Excuse From Work or School Precautions for COVID19 Patient Portal Social Distancing
--- NOTE | 2021-03-08 11:13 | NOTE.SOAP ---
Soap Note Subjective Data Subjective Data: S/P stenting of let common iliac artery after Angiojet aspiration of clot . Objective Data Temperature: 97.6 F Pulse Rate: 63 Respiratory Rate: 24 Blood Pressure: 178/79 O2 Sat by Pulse Oximetry: 99 Objective Data: Palpable left DP pulse where one was not present pre-op. Assessment Assessment: S/P revascularization of left leg for rest pain with Angiojet aspiration of occlusion and IVUS and stenting. Palpable pulse left DP at completion of case. Plan Plan: Stop heparin drip. Continue home meds including Plavix and Xarelto.
== END 2021-03-06 12:00 | disposition home or self-care (01) | DRG 272 ==
LOC: ER 16:13 → ICU 16:13 → OBSVTOIN 20:10 → ICU 23:12 → MED/SURG 03-05 18:49
PROVIDERS: ADMIT Surgery; ATTEND Internal Medicine
DX: F17.210 Nicotine dependence, cigarettes, uncomplicated; E11.51 Type 2 diabetes mellitus with diabetic peripheral angiopathy without gangrene; I10 Essential (primary) hypertension; Z57.31 Occupational exposure to environmental tobacco smoke; I25.10 Atherosclerotic heart disease of native coronary artery without angina pectoris; K21.9 Gastro-esophageal reflux disease without esophagitis; Z98.61 Coronary angioplasty status; E78.5 Hyperlipidemia, unspecified; I25.2 Old myocardial infarction; I74.5 Embolism and thrombosis of iliac artery; F41.9 Anxiety disorder, unspecified